=== PATIENT | male | born 1945 | race Caucasian/White ===

== ENCOUNTER 2016-09-09 14:26 | Emergency (ER) | payer BC, MEDICARE ==
--- NOTE | 2016-09-09 14:52 | UC ---
Cardiac HPI - HPI Summary HPI Summary: The patient comes in today for: 1. Chest pain: Onset: one hour ago. Palliative/provocative: Coming here and laying on the cot made it better. Quality: Pressure, also a pain. Region: Left chest and left arm pain. Severity: 8/10 Time: Constant. Associated symptoms: Nausea: Present. Dyspnea: None Palpitations: None. Diaphoresis: None. Previous disease: None. CAD risk factors: HTN: (-), DM: (-), CAD: (-), Smoker: (-), Fm Hx: (+)-- brother had coronary bypass, but not before age 55, cholesterol: (?). Previous cardiac studies: None; ASA: He states that he has been taking one 81 mg aspirin daily for the last "several days." * - History of Current Complaint Chief Complaint: UCChestPain Stated Complaint: TOOTH/CHEST PAIN Time Seen by Provider: 09/09/16 14:44 Hx Obtained From: Patient - Allergy/Home Medications Allergies/Adverse Reactions: Allergies Allergy/AdvReac Type Severity Reaction Status Date / Time Bee Venom Allergy Unknown See Comment Verified 09/09/16 14:39 Celecoxib [From Celebrex] Allergy Rash Verified 09/09/16 14:39 Home Medications: Home Medications Aspirin EC Low Dose* [Ecotrin EC Low Dose*] 1 tab 09/09/16 [History] PMH/Surg Hx/FS Hx/Imm Hx Previously Healthy: No - Dermatitis, dizziness. Endocrine History Of: Denies: Diabetes, Thyroid Disease, Hyperthyroidism, Hypothyroidism, Dyslipidemia Cardiovascular History Of: Denies: Cardiac Disorders, Hypertension, Pacemaker/ICD, Myocardial Infarction , Congestive Heart Failure, Atrial Fibrillation, Deep Vein Thrombosis, Bleeding Disorders Respiratory History Of: Denies: COPD, Asthma, Bronchitis, Pneumonia, Pulmonary Embolism GI/ History Of: Denies: Gastroesophageal Reflux, Ulcer, Gastrointestinal Bleed, Gall Bladder Disease, Kidney Stones, Diverticulitis, Renal Disease, Urosepsis Neurological History Of: Denies: TIA, CVA, Dementia, Seizures, Migraine Psychological History Of: Denies: Anxiety, Depression, Bipolar Disorder, Schizophrenia, Post Traumatic Stress Disorder Cancer History Of: Denies: Lung Cancer, Colorectal Cancer, Breast Cancer, Prostate Cancer, Cervical Cancer Other History Of: Anticoagulant Therapy - 81 mg aspirin daily for the "last couple of days." Negative For: HIV, Hepatitis B, Hepatitis C - Surgical History Surgical History: Yes Surgery Procedure, Year, and Place: Right Inguinal hernia 2013 (?). [place] [place]NEE REPA[place] WITH CAST. Cholecystectomy 06/14 - Family History Known Family History: Positive: Cardiac Disease, Hypertension, Diabetes - Social History Occupation: Employed Full-time Alcohol Use: Occasionally Substance Use Type: None Smoking Status (MU): Never Smoked Tobacco Have You Smoked in the Last Year: No Household Exposure Type: Cigarettes - Immunization History Most Recent Influenza Vaccination: 2014 Most Recent Tetanus Shot: 2009 Most Recent Pneumonia Vaccination: 2013 Review of Systems Constitutional: Negative Skin: Negative Eyes: Negative ENT: Dental Pain Respiratory: Negative Cardiovascular: Chest Pain Gastrointestinal: Abdominal Pain - He states that he has a history of abdominal pain, and is not "too concerned" about it., Diarrhea - He has six watery stools/ day for "years." Genitourinary: Negative All Other Systems Reviewed And Are Negative: Yes Physical Exam Triage Information Reviewed: Yes Appearance: Well-Appearing, No Pain Distress, Well-Nourished Vital Signs: Initial Vital Signs Temp 99.1 F 09/09/16 14:39 Pulse 72 09/09/16 14:39 Resp 18 09/09/16 14:39 BP 139/83 09/09/16 14:39 Pulse Ox 98 09/09/16 14:39 Vital Signs Reviewed: Yes Eyes: Positive: Conjunctiva Clear. Negative: Discharge ENT: Positive: Hearing grossly normal, Other: - Both ears: cerumen obscures seeing TM, but there is no canal erythema or edema.. Negative: Pharyngeal erythema, Nasal congestion, Nasal drainage Dental: Negative: Gross Decay/Caries @, Dental Fracture @ Neck: Positive: Supple, Nontender, No Lymphadenopathy. Negative: Nuchal Rigidity Respiratory: Positive: Lungs clear, No respiratory distress, No accessory muscle use. Negative: Crackles, Wheezing Cardiovascular: Positive: RRR, No Murmur Abdomen Description: Positive: No Organomegaly, Soft, McBurney's Point Tenderness. Negative: Nontender - He has tenderness to general palpation of his abdomen. However, he states that this pain is not new and he is not "concerned" about it. He has percussion tenderness, but no rebound tenderness. , Bruit, Distended, Guarding, Peritoneal Signs, Pulsatile Mass Musculoskeletal: Positive: Strength Intact, ROM Intact, No Edema, Other: - He has some point focal tenderness to the upper, left pectoralis major muscle. No masses. Pressure to this area does reproduce some of the sharp, sore chest pain , but does not reproduce the pressure sensation that he states he had. Neurological: Positive: Alert, Muscle Tone Normal Psychological: Positive: Age Appropriate Behavior, Consolable Skin: Negative: rashes, breakdown - Clinical Impression Provider Diagnoses: Chest pain (pressure and soreness). Abdominal pain ( patient reports is chronic along with chronic diarrhea). tooth pain. - Physician Notifications Discussed Patient Care With: Dr. Mango Trevizo Time Discussed With Above Provider: 15:14 Discharge - Discharge Plan Condition: Stable Disposition: AGAINST MEDICAL ADVICE Referrals: Angi Millan MD [Primary Care Provider] - Additional Instructions: Please go directly to the ER.
[2016-09-09] MEDS ORDERED: Aspirin Low Dose CHEW TAB* 81 MG PO ONE (15:07)
[2016-09-09] MEDS ORDERED: Aspirin Low Dose CHEW TAB* 81 MG ONE (15:10)
[2016-09-09 15:20] VITALS: BP 135/72
== END 2016-09-09 15:10 | disposition left against medical advice (07) ==
LOC: UCEAST 14:26
DX: R07.89 Other chest pain (principal); R10.84 Generalized abdominal pain; R19.7 Diarrhea, unspecified; K08.89 Other specified disorders of teeth and supporting structures; Z79.82 Long term (current) use of aspirin; Z88.8 Allergy status to other drugs, medicaments and biological substances; Z77.22 Contact with and (suspected) exposure to environmental tobacco smoke (acute) (chronic)
CPT/HCPCS: 93005; 99212; A9270-GY; G0463

== ENCOUNTER 2016-09-09 15:49 | Observation (INO) | payer BC, MEDICARE ==
[2016-09-09] MEDS ORDERED: NS 0.9% 1000 ML* 1,000 ML IV SCH (16:30)
[2016-09-09 16:50] LABS: Hematocrit 47 % (42-52); Hemoglobin 15.6 g/dl (14.0-18.0); Mean Corpuscular HGB Conc 33 g/dl (31-36); Mean Corpuscular Hemoglobin 30 pg (27-31); Mean Corpuscular Volume 89 fL (80-94); Mean Platelet Volume 8 um3 (7.4-10.4); Red Blood Count 5.25 10^6/ul (4.0-5.4); Red Cell Distribution Width 13 % (10.5-15)
--- NOTE | 2016-09-09 17:10 | RAD ---
INDICATION: Chest pain COMPARISON: Similar chest x-ray dated July 17, 2016 TECHNIQUE: Single AP portable view of the chest was obtained. FINDINGS: Image quality is compromised due to the relative inferiority of a portable chest x-ray. The heart and mediastinum exhibit normal size and contour. The lungs are grossly clear. There is no evidence of a large pleural effusion. Visualized bones are normal for the patient's age. IMPRESSION: No radiographic evidence for acute cardiopulmonary abnormality on this portable chest x-ray.
[2016-09-09 17:19] LABS: Albumin 4.3 g/dL (3.2-5.2); C Reactive Protein 9.67 mg/L (< 5.00); Calcium 9.4 mg/dL (8.6-10.3); EGFR African American 82.9 (>60); EGFR Non-African American 64.4 (>60); Globulin 3.2 g/dL (2-4); Magnesium 2.6 mg/dL (1.9-2.7); Potassium 3.7 mmol/L (3.5-5.0); Total Bilirubin 0.3 mg/dL (0.2-1.0); Total Protein 7.5 g/dL (6.4-8.9)
[2016-09-09 17:30] LABS: TSH (Thyroid Stimulating Horm) 2.66 mcIU/mL (0.34-5.60)
[2016-09-09] MEDS ORDERED: HYDROcodone/ACETAMIN 5-325 MG* 1 TAB PO ONE (18:05)
[2016-09-09] MEDS ORDERED: Penicillin VK TAB* 250 MG PO ONE (18:05)
--- NOTE | 2016-09-09 18:05 | ED ---
Luz Ortega Erika, scribed for Angus Jackson MD on 09/09/16 at 1626 . HPI Chest Pain - HPI Summary HPI Summary: Patient is a 71-year-old male presenting to the ED with a CC of chest pain starting at 14:30 today. Pt reports that he initially had upper left dental pain starting yesterday afternoon which worsened last night and today, so today he took a [place] around 13:30 today. 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 Pain was described as a pressure and rated an 8/10 at its worst. At first, pain did not radiate, but then it began to radiate to the left arm and LUQ. Pt was seen at [facility], and states pain worsened during the drive. Pain was partially alleviated by lying down. Pt was given 243 mg aspirin at [facility], and was not given NTG. Pt came from [facility] to the ED by private car. Pt denies associated symptoms of nausea, diaphoresis, SOB, and calf pain/swelling. He states the chest pain is no longer present - it lasted about 1.5 hours - but he does still note some dental pain. Pt takes meclizine daily for vertigo. Denies Hx HTN, hyperlipidemia, diabetes, KS, DVT, PE. Pt reports he had a chemical stress test 8 years ago. - History of Current Complaint Chief Complaint: EDChestPainROMI Time Seen by Provider: 09/09/16 16:04 Hx Obtained From: Patient Onset/Duration: Started Hours Ago, Atraumatic, Resolved Timing: Constant Initial Severity: Moderate Current Severity: None Chest Pain Location: Left Anterior Chest Pain Radiates: Yes Chest Pain Radiates To:: Arm - L, Other - LUQ Character: Pressure/Squeezing Aggravating Factor(s): Other: - Driving Alleviating Factor(s): Position - Lying down Associated Signs and Symptoms: Positive: Negative. Negative: Shortness of Breath, Diaphoresis, Nausea, Calf Pain/Swelling - Additional Pertinent History Primary Care Physician: [id number] - Allergy/Home Medications Allergies/Adverse Reactions: Allergies Allergy/AdvReac Type Severity Reaction Status Date / Time Bee Venom Allergy Unknown See Comment Verified 09/09/16 14:39 Celecoxib [From Celebrex] Allergy Rash Verified 09/09/16 14:39 Home Medications: Home Medications Meclizine TAB* [Antivert 12.5 TAB*] 25 mg PO QID PRN 09/09/16 [History Confirmed 09/09/16] PMH/Surg Hx/FS Hx/Imm Hx Endocrine/Hematology History: Reports: Hx Anticoagulant Therapy - 81 mg aspirin daily for the "last couple of days." Denies: Hx Diabetes, Hx Thyroid Disease Cardiovascular History: Denies: Hx Congestive Heart Failure, Hx Deep Vein Thrombosis, Hx Hypertension , Hx Myocardial Infarction, Hx Pacemaker/ICD Respiratory History: Reports: Hx Pleural Effusion - R side current, Hx Sleep Apnea Denies: Hx Asthma, Hx Chronic Obstructive Pulmonary Disease (COPD), Hx Lung Cancer, Hx Pneumonia, Hx Pulmonary Embolism GI History: Reports: Hx Hiatal Hernia, Other GI Disorders - chronic diarrhea Denies: Hx Gall Bladder Disease, Hx Gastrointestinal Bleed, Hx Ulcer, Hx Urosepsis History: Denies: Hx Dialysis, Hx Kidney Stones, Hx Renal Disease Musculoskeletal History: Reports: Other Musculoskeletal History - HX OF CHRONIC PAIN IN NECK AND BILATERAL SHOULDERS Sensory History: Reports: Hx Cataracts - 2012, Hx Hearing Aid - (LEFT) DOES NOT WEAR IT, Hx Hearing Problem Denies: Hx Contacts or Glasses Opthamlomology History: Reports: Hx Cataracts - 2012 Denies: Hx Contacts or Glasses Neurological History: Denies: Hx Dementia, Hx Migraine, Hx Seizures, Hx Transient Ischemic Attacks (TIA) Psychiatric History: Denies: Hx Anxiety, Hx Depression, Hx Panic Disorder, Hx Schizophrenia, Hx Bipolar Disorder - Surgical History Surgery Procedure, Year, and Place: Right [place]inal her[place] 2013 ([place] [facility] [place] WITH CAST. Cholecystectomy 06/14 Hx Anesthesia Reactions: No Infectious Disease History: No Infectious Disease History: Reports: Hx Shingles Denies: Hx Clostridium Difficile, Hx Hepatitis, Hx Human Immunodeficiency Virus (HIV), Hx of Known/Suspected MRSA, Hx Tuberculosis, Hx Known/Suspected VRE , Hx Known/Suspected VRSA, History Other Infectious Disease, Traveled Outside the [place] in Last 30 Days - Family History Known Family History: Positive: Cardiac Disease, Hypertension, Diabetes - Social History Alcohol Use: Occasionally Hx Substance Use: No Substance Use Type: Reports: None Hx Tobacco Use: No Smoking Status (MU): Never Smoked Tobacco Have You Smoked in the Last Year: No Review of Systems Negative: Skin Diaphoresis Positive: Dental Pain Positive: Chest Pain - radiating to LUQ and left arm Negative: Shortness Of Breath Negative: Nausea Negative: Edema All Other Systems Reviewed And Are Negative: Yes Physical Exam Triage Information Reviewed: Yes Vital Signs On Initial Exam: Initial Vitals Temp Pulse Resp BP Pulse Ox 98.7 F 137 20 133/72 90 09/09/16 15:51 09/09/16 15:51 09/09/16 15:51 09/09/16 15:51 09/09/16 15:51 Vital Signs Reviewed: Yes Appearance: Positive: Well-Appearing, No Pain Distress Skin: Positive: Warm, Skin Color Reflects Adequate Perfusion, Dry Head/Face: Positive: Normal Head/Face Inspection Eyes: Positive: EOMI, ANGI ENT: Positive: Normal ENT inspection Dental: Positive: Gross Decay/Caries @ - left molar, and multiple other carries and decay Neck: Positive: Supple, Nontender Respiratory/Lung Sounds: Positive: Clear to Auscultation, Breath Sounds Present Cardiovascular: Positive: Tachycardia - at 137 bpm on triage Abdomen Description: Positive: Nontender, Soft Bowel Sounds: Positive: Present Musculoskeletal: Positive: Normal, Strength/ROM Intact Neurological: Positive: Normal, Sensory/Motor Intact, Alert, Oriented to Person Place, Time Psychiatric: Positive: Affect/Mood Appropriate Diagnostics - Vital Signs Vital Signs Temp Pulse Resp BP Pulse Ox 09/09/16 15:51 98.7 F 137 20 133/72 90 - Laboratory Lab Results: Lab Results 09/09/16 09/09/16 09/09/16 Range/Units 14:15 14:15 14:15 WBC 12.0 H (3.5-10.8) 10^3/ul RBC 5.25 (4.0-5.4) 10^6/ul Hgb 15.6 (14.0-18.0) g/dl Hct 47 (42-52) % MCV 89 (80-94) fL MCH 30 (27-31) pg MCHC 33 (31-36) g/dl RDW 13 (10.5-15) % Plt Count 261 (150-450) 10^3/ul MPV 8 (7.4-10.4) um3 Neut % (Auto) 76.4 (38-83) % Lymph % (Auto) 13.4 L (25-47) % Ritchie % (Auto) 6.8 (1-9) % Eos % (Auto) 3.1 (0-6) % Baso % (Auto) 0.3 (0-2) % Absolute Neuts (auto) 9.2 H (1.5-7.7) 10^3/ul Absolute Lymphs (auto) 1.6 (1.0-4.8) 10^3/ul Absolute Monos (auto) 0.8 (0-0.8) 10^3/ul Absolute Eos (auto) 0.4 (0-0.6) 10^3/ul Absolute Basos (auto) 0 (0-0.2) 10^3/ul Absolute Nucleated RBC 0.02 10^3/ul Nucleated RBC % 0.1 INR (Anticoag Therapy) 0.89 (0.89-1.11) APTT 28.8 (26.0-36.3) seconds D-Dimer, Quantitative < 200 (Less Than 230) ng/mL Sodium 137 (133-145) mmol/L Potassium 3.7 (3.5-5.0) mmol/L Chloride 104 (101-111) mmol/L Carbon Dioxide 26 (22-32) mmol/L Anion Gap 7 (2-11) mmol/L BUN 19 (6-24) mg/dL Creatinine 1.12 (0.67-1.17) mg/dL Est GFR ( Amer) 82.9 (>60) Est GFR (Non-Af Amer) 64.4 (>60) BUN/Creatinine Ratio 17.0 (8-20) Glucose 90 (70-100) mg/dL Calcium 9.4 (8.6-10.3) mg/dL Magnesium 2.6 (1.9-2.7) mg/dL Total Bilirubin 0.30 (0.2-1.0) mg/dL AST 15 (13-39) U/L ALT 12 (7-52) U/L Alkaline Phosphatase 91 (34-104) U/L Total Creatine Kinase 51 (10-223) U/L CK-MB (CK-2) 2.7 (0.6-6.3) ng/mL Troponin I 0.00 (<0.04) ng/mL C-Reactive Protein 9.67 H (< 5.00) mg/L B-Natriuretic Peptide ( - 100) pg/mL Total Protein 7.5 (6.4-8.9) g/dL Albumin 4.3 (3.2-5.2) g/dL Globulin 3.2 (2-4) g/dL Albumin/Globulin Ratio 1.3 (1-3) Lipase 29 (11.0-82.0) U/L TSH 2.66 (0.34-5.60) mcIU/mL 09/09/16 Range/Units 14:15 WBC (3.5-10.8) 10^3/ul RBC (4.0-5.4) 10^6/ul Hgb (14.0-18.0) g/dl Hct (42-52) % MCV (80-94) fL MCH (27-31) pg MCHC (31-36) g/dl RDW (10.5-15) % Plt Count (150-450) 10^3/ul MPV (7.4-10.4) um3 Neut % (Auto) (38-83) % Lymph % (Auto) (25-47) % Ritchie % (Auto) (1-9) % Eos % (Auto) (0-6) % Baso % (Auto) (0-2) % Absolute Neuts (auto) (1.5-7.7) 10^3/ul Absolute Lymphs (auto) (1.0-4.8) 10^3/ul Absolute Monos (auto) (0-0.8) 10^3/ul Absolute Eos (auto) (0-0.6) 10^3/ul Absolute Basos (auto) (0-0.2) 10^3/ul Absolute Nucleated RBC 10^3/ul Nucleated RBC % INR (Anticoag Therapy) (0.89-1.11) APTT (26.0-36.3) seconds D-Dimer, Quantitative (Less Than 230) ng/mL Sodium (133-145) mmol/L Potassium (3.5-5.0) mmol/L Chloride (101-111) mmol/L Carbon Dioxide (22-32) mmol/L Anion Gap (2-11) mmol/L BUN (6-24) mg/dL Creatinine (0.67-1.17) mg/dL Est GFR ( Amer) (>60) Est GFR (Non-Af Amer) (>60) BUN/Creatinine Ratio (8-20) Glucose (70-100) mg/dL Calcium (8.6-10.3) mg/dL Magnesium (1.9-2.7) mg/dL Total Bilirubin (0.2-1.0) mg/dL AST (13-39) U/L ALT (7-52) U/L Alkaline Phosphatase (34-104) U/L Total Creatine Kinase (10-223) U/L CK-MB (CK-2) (0.6-6.3) ng/mL Troponin I (<0.04) ng/mL C-Reactive Protein (< 5.00) mg/L B-Natriuretic Peptide 16 ( - 100) pg/mL Total Protein (6.4-8.9) g/dL Albumin (3.2-5.2) g/dL Globulin (2-4) g/dL Albumin/Globulin Ratio (1-3) Lipase (11.0-82.0) U/L TSH (0.34-5.60) mcIU/mL Result Diagrams: 09/09/16 14:15 09/09/16 14:15 Lab Statement: Any lab studies that have been ordered have been reviewed, and results considered in the medical decision making process. - Radiology CXR Radiology Interpretation Completed By: Radiologist - IMPRESSION: No radiographic evidence for acute cardiopulmonary abnormality on this portable chest x-ray. - EKG 15:56 Cardiac Rate: NL - at 62 bpm EKG Rhythm: Sinus Rhythm Ectopy: None EKG Interpretation: Flat T in III Re-Evaluation - Re-Evaluation First Eval Re-Evaluation Time: 17:48 Comment: Discussed lab and imaging results and possible admission Chest Pain Course/Dx - Course Assessment/Plan: NO CHEST PAIN IN ED. ADMIT HOSPITALIST STABLE. - Diagnoses Provider Diagnoses: Chest pain, Tooth ache - Provider Notifications Discussed Care Of Patient With: Dr. Hernandez (hospitalist) at 17:51 - agrees to admit Discharge - Discharge Plan Condition: Stable Disposition: ADMITTED TO [facility] Referrals: Angi Millan MD [Primary Care Provider] - The documentation as recorded by the Luz sotomayor Erika accurately reflects the service I personally performed and the decisions made by , Angus Jackson MD.
[2016-09-09] MEDS ORDERED: Ondansetron INJ* 2 MG/ML VIAL IV PRN (18:29)
[2016-09-09] MEDS ORDERED: oxyCODONE TAB* 5 MG TAB PO PRN (18:35)
[2016-09-09 19:34] LABS: Urine Bilirubin Negative (Negative); Urine Glucose Negative (Negative); Urine Nitrite Negative (Negative)
--- NOTE | 2016-09-09 20:57 | HP ---
AMENDED REPORT NOW INCLUDES DATE OF ADMISSION ADMISSION HISTORY AND PHYSICAL: DATE OF ADMISSION: 09/09/16 PRIMARY CARE PROVIDER: Dr. Millan. HEALTHCARE PROXY: His . CODE STATUS: Full. CHIEF COMPLAINT: Chest pain. HISTORY OF PRESENT ILLNESS: This 71-year-old man, relatively benign past medical history, who has been in his recent usual state of health, although noticed that he had what was thought what he had was a recent dental infection starting yesterday because of pain in his mouth. He had hydrocodone with acetaminophen 5/325 mg that his had from a previous surgery and took it after which he developed chest pain that felt like a pressure that was left sided radiating to his left arm and flank, not associated with shortness of breath, diaphoresis, light headedness or vertigo. Laura that the pain got progressively worse over the next hour. Over that hour, he drove his to work and then brought himself to [facility]. He noted the pain was better when lying down; however, he was directed [place] [facility] [place] he drove. He has never experienced pain like this before, although has experienced right sided chest pain which he reports has been worked up without an etiology. He denies any recent fevers, chills, cough, or sore throat, although does endorse rhinorrhea starting yesterday. 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 He also lifts other heavy equipment such as furnaces around his house and puts them into the truck. Some of the boxes that he carries can weigh up to 130 pounds. He performs this activity without ever developing chest pain or similar chest discomfort like he experienced today. Denies orthopnea or PND and no new or old lower extremity edema. PAST MEDICAL HISTORY: Includes vertigo, osteoarthritis, and a history of right inguinal hernia and laparoscopic cholecystectomy. MEDICATIONS: Meclizine as needed for vertigo. ALLERGIES: To CELEBREX which caused a rash. FAMILY HISTORY: His brother had CAD and a CABG, otherwise unremarkable. SOCIAL HISTORY: No history of tobacco use. Estimates he drinks about 30 beers annually. 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 PHYSICAL EXAMINATION GENERAL: Sitting up in bed, interactive, pleasant, in no apparent distress. VITAL SIGNS: Blood pressure 128/62, heart rate 67, respiratory rate 14, T max in the emergency room 98.7, 99% on room air. HEENT: His oropharynx is clear. He has poor dentition. No evidence of active draining infection in his mouth, though he indicates left upper region as the source of pain. NECK: He has non-elevated JVD. No carotid bruits. LUNGS: Clear to auscultation bilaterally. HEART: He has regular rate and rhythm. No murmurs, rubs, or gallops. CHEST: His left chest wall is tender to palpation. ABDOMEN: Soft, nondistended. Positive bowel sounds. Tender in the epigastrium to deep palpation. EXTREMITIES: Warm and well perfused without clubbing, cyanosis, or edema. Less than 2-second cap refill. SKIN: Good skin turgor. NEURO: He is A and O x3. Cranial nerves II through XII are intact. LABORATORY DATA: Labs reviewed. Notable for BUN 19, creatinine 1.12, CK-MB 2.7 , troponin 0.00. CRP 9.6, BNP 16, TSH 2.66. D-dimer less than 200. White blood cell count is 12, 76% neutrophils, hemoglobin 15.6, platelets 261. Data reviewed. EKG: Normal sinus rhythm. Ventricular rate of 62, left axis, normal limit intervals. Left anterior fascicular block. No ST or T-wave changes. Isolated Q in aVF. Chest x-ray, impression: No radiographic evidence for acute cardiopulmonary abnormality. ASSESSMENT AND PLAN: This is a 71-year-old male, benign past medical history except for recent suspected dental infection, not corroborated on physical exam presenting with new onset, left sided chest pressure. 1. Chest pain. Risk factors include age and gender. Unknown cholesterol and diabetes status, although sugar on presentation was 90. We will admit to the hospital observation status, check 2 additional troponins, first one now. EKG at the time with next troponin. Add on hemoglobin A1c to ED labs and check fasting lipids in the morning. Received aspirin at [facility]. We will continue low dose in the morning. Statin based on lipids and troponins. NPO at midnight, planned for stress. 2. Suspected dental infection. Received penicillin in the emergency room. Repeat white blood cell count in the morning. Pain medications p.r.n. Assist in establishing dental care on discharge. 3. Vertigo. Meclizine p.r.n. 4. DVT prophylaxis, moderate risk, heparin subcu. 5. Code status is full. CC: Dr. Millan * [id number]/[facility] #: [id number] [facility]
[2016-09-09] MEDS: Heparin VIAL(*) 5000 UNITS/ML VIAL (FIVE THOUSAND) SUBCUT SCH (22:19)
[2016-09-10] MEDS: Acetaminophen TAB* 325 MG PO PRN ×3 (02:19→13:34)
[2016-09-10 05:22] LABS: Hematocrit 41 % (42-52); Hemoglobin 13.6 g/dl (14.0-18.0); Mean Corpuscular HGB Conc 34 g/dl (31-36); Mean Corpuscular Hemoglobin 30 pg (27-31); Mean Corpuscular Volume 89 fL (80-94); Mean Platelet Volume 8 um3 (7.4-10.4); Red Blood Count 4.58 10^6/ul (4.0-5.4); Red Cell Distribution Width 13 % (10.5-15); White Blood Count 10.5 10^3/ul (3.5-10.8)
[2016-09-10 05:44] LABS: BUN/Creatinine Ratio 14.4 (8-20); Calcium 8.5 mg/dL (8.6-10.3); EGFR Non-African American 60.7 (>60); HDL Cholesterol 28.4 mg/dL; Potassium 3.4 mmol/L (3.5-5.0)
[2016-09-10] MEDS: Heparin VIAL(*) 5000 UNITS/ML VIAL (FIVE THOUSAND) SUBCUT SCH (06:05)
[2016-09-10] MEDS ORDERED: Aspirin EC Low Dose* 81 MG TAB.EC PO SCH (09:00)
[2016-09-10 11:40] VITALS: BP 125/57
--- NOTE | 2016-09-11 04:12 | DS ---
DISCHARGE SUMMARY: DATE OF ADMISSION: 09/09/16 DATE OF DISCHARGE: 09/10/16 PRIMARY CARE PHYSICIAN: Angi Millan M.D. PRIMARY DISCHARGE: Chest pain. SECONDARY DIAGNOSES: 1. Dental infection. 2. Chronic kidney disease. 3. Vertigo. PROCEDURES PERFORMED DURING HOSPITAL STAY: Exercise EKG stress test. Impression: No evidence of stress-induced ischemia. PERTINENT LABORATORY DATA: 1. Troponin I 0.00 on 3 consecutive checks. 2. Total cholesterol 168, LDL 70, HDL 28, triglycerides 349, creatinine 1.18. HISTORY OF PRESENT ILLNESS AND HOSPITAL COURSE: This is a 71-year-old man with minimal past medical history presented to the hospital after developing left- sided chest pressure radiating down his left arm after taking hydrocodone at home for his mouth pain. Did not have associated signs or symptoms. However, given his poor contact with medical providers and character of the pain, he was admitted to the hospital and had 3 negative troponins. The following day, he underwent exercise EKG stress test which was negative, low risk for ischemia. He was discharged without complications during the hospital course. He had no additional chest pain during the course of the hospital stay nor during his stress test. He will follow up with Dr. Millan for additional dental care. A referral was made to a dentist on discharge, although unclear that he has dental insurance at this time. MEDICATIONS AT DISCHARGE: Include: 1. Meclizine 25 mg 4 times a day as needed for vertigo. 2. Acetaminophen 650 mg every 6 hours as needed for pain or fever. Reasons to return to the hospital including but not limited to, recurrent or worsening symptoms including shortness of breath or chest pain, lightheadedness , headache, loss of consciousness, near loss of consciousness, nausea, vomiting , fevers, chills, night sweats, inability to obtain or tolerate medications were discussed with the patient, and he acknowledged understanding. At followup please: 1. Evaluate for resolution of symptoms. 2. Appropriate referral to dental care if not accepted to that when he was referred to from the hospital. TIME SPENT: Greater than 45 minutes was spent discharging the patient, greater than half the time was spent [id number] with the patient. CC: Angi Millan MD * [id number]/[facility] #: [id number] [facility]ILITY[facility]uthie
== END 2016-09-10 14:15 | disposition home or self-care (01) ==
LOC: ED 15:49 → MEDTELE 20:25
PROVIDERS: ADMIT Hospitalist; ATTEND Internal Medicine
DX: R07.9 Chest pain, unspecified (principal); N18.9 Chronic kidney disease, unspecified; R42 Dizziness and giddiness; K04.7 Periapical abscess without sinus; Z79.899 Other long term (current) drug therapy; R94.31 Abnormal electrocardiogram [ECG] [EKG]; R00.1 Bradycardia, unspecified
CPT/HCPCS: 36415; 71010; 80048; 80053; 80061; 81003; 82550; 82553; 83036; 83690; 83735; 83880; 84443; 84484; 85025; 85379; 85610; 85730; 86140; 93005; 96360; 96361; 96372; 99212; 99283; A9270-GY; G0378; G0463; J1644

== ENCOUNTER 2016-10-11 14:43 | Emergency (ER) | payer BC, MEDICARE ==
[2016-10-11 15:00] VITALS: BP 127/59
--- NOTE | 2016-10-11 15:40 | ED ---
Upper Extremity Pain - HPI Summary HPI Summary: 71 M presents with laceration to right eye and right shoulder pain s/p slipping on some snow today. He denies any LOC or headache. His fall was a mechanical fall and he denies any any chest pain or SOB at time of fall. He had limited ROM of his right shoulder but says since arriving his ROM has increased. He is on blood thinners according to his chart which he denied being on. He denies any nausea or vomiting. He is right handed. He denies any injury anywhere else. His last tetanus was a week ago. <Gela Fox - Last Filed: 10/11/16 20:10> <Clif Wren - Last Filed: 10/11/16 21:00> - History of Current Complaint Chief Complaint: EDExtremityUpper Stated Complaint: FALL / FACIAL LACS Time Seen by Provider: 10/11/16 15:07 - Allergies/Home Medications Allergies/Adverse Reactions: Allergies Allergy/AdvReac Type Severity Reaction Status Date / Time Bee Venom Allergy Unknown See Comment Verified 10/02/16 11:03 Celecoxib [From Celebrex] Allergy Rash Verified 10/02/16 11:03 PMH/Surg Hx/FS Hx/Imm Hx Endocrine/Hematology History: Reports: Hx Anticoagulant Therapy - 81 mg aspirin daily for the "last couple of days." Denies: Hx Diabetes, Hx Thyroid Disease Cardiovascular History: Reports: Hx Angina Denies: Hx Congestive Heart Failure, Hx Deep Vein Thrombosis, Hx Hypertension , Hx Myocardial Infarction, Hx Pacemaker/ICD Respiratory History: Reports: Hx Pleural Effusion, Hx Pneumonia - "many times", Other Respiratory Problems/Disorders - pl eff Denies: Hx Asthma, Hx Chronic Obstructive Pulmonary Disease (COPD), Hx Lung Cancer, Hx Pulmonary Embolism, Hx Sleep Apnea - pt denies GI History: Reports: Hx Gall Bladder Disease - removed, Hx Hiatal Hernia, Other GI Disorders - chronic diarrhea Denies: Hx Gastrointestinal Bleed, Hx Ulcer, Hx Urosepsis History: Reports: Hx Kidney Stones Denies: Hx Dialysis, Hx Renal Disease Musculoskeletal History: Reports: Other Musculoskeletal History - HX OF PAIN IN R NECK, BILATERAL SHOULDERS, right upper chest Sensory History: Reports: Hx Cataracts - 2013, Hx Hearing Aid - (LEFT) DOES NOT WEAR IT, Hx Hearing Problem Denies: Hx Contacts or Glasses Opthamlomology History: Reports: Hx Cataracts - 2012 Denies: Hx Contacts or Glasses Neurological History: Reports: Other Neuro Impairments/Disorders - chronic vertigo Denies: Hx Dementia, Hx Migraine, Hx Seizures, Hx Transient Ischemic Attacks (TIA) Psychiatric History: Denies: Hx Anxiety, Hx Depression, Hx Panic Disorder, Hx Schizophrenia, Hx Bipolar Disorder - Surgical History Surgery Procedure, Year, and Place: Right Inguinal hernia 2013 (?). 2013- [facility]. 1949'S KNEE REPAIR WITH [facility]. Cholecystectomy 06/14 Hx Anesthesia Reactions: No - Immunization History Date of Tetanus Vaccine: Up to date Date of Influenza Vaccine: 2014 Infectious Disease History: No Infectious Disease History: Reports: Hx Shingles - hx Denies: Hx Clostridium Difficile, Hx Hepatitis, Hx Human Immunodeficiency Virus (HIV), Hx of Known/Suspected MRSA, Hx Tuberculosis, Hx Known/Suspected VRE , Hx Known/Suspected VRSA, History Other Infectious Disease, Traveled Outside the [place] in Last 30 Days - Family History Known Family History: Positive: Cardiac Disease, Hypertension, Diabetes - Social History Alcohol Use: Occasionally Alcohol Amount: 3 drinks per month Hx Substance Use: No Substance Use Type: Reports: None Hx Tobacco Use: No Smoking Status (MU): Never Smoked Tobacco Have You Smoked in the Last Year: No <Gela Fox - Last Filed: 10/11/16 20:10> Review of Systems Negative: Fever Negative: Chest Pain Negative: Shortness Of Breath Positive: Myalgia - right shoulder pain Positive: Other - laceration near right eye All Other Systems Reviewed And Are Negative: Yes <Gela Fox - Last Filed: 10/11/16 20:10> Physical Exam Triage Information Reviewed: Yes Vital Signs On Initial Exam: Initial Vitals Temp Pulse Resp BP Pulse Ox 98.2 F 67 16 127/59 98 10/11/16 14:53 10/11/16 14:53 10/11/16 14:53 10/11/16 14:53 10/11/16 14:53 Vital Signs Reviewed: Yes Appearance: Positive: Well-Appearing Skin: Positive: Warm, Dry, Other - 4 cm laceration near eyebrow of right eye and 2 cm laceration also near right eye Head/Face: Positive: Normal Head/Face Inspection, Other - no step off, raccoon eyes, gilbert sign, ENT: Positive: Pharynx normal, TMs normal, Other - deformity of nose present that patient states is chronic with no crepitus, no septal hematoma Neck: Positive: Supple, Nontender, No Lymphadenopathy Respiratory/Lung Sounds: Positive: Clear to Auscultation, Breath Sounds Present Cardiovascular: Positive: Normal, RRR Musculoskeletal: Positive: Strength/ROM Intact - of right elbow, Limited @ - right shoulder due to pain, Other - good pulses, capillary refill <2 secs, tenderness to right shoulder and humerus, nontender right elbow Neurological: Positive: Sensory/Motor Intact, Alert, Oriented to Person Place, Time, CN Intact II-III <Gela Fox - Last Filed: 10/11/16 20:10> Vital Signs On Initial Exam: Initial Vitals Temp Pulse Resp BP Pulse Ox 98.2 F 67 16 127/59 98 10/11/16 14:53 10/11/16 14:53 10/11/16 14:53 10/11/16 14:53 10/11/16 14:53 <Clif Wren - Last Filed: 10/11/16 21:00> Procedures - Laceration/Wound Repair 1 Location: head Description: Linear Anesthesia: Local, 1.0% Length, Depth and Shape: 4 cm lenght by 1/2 cm wide Betadine Prep?: No Irrigated w/ Saline (ccs): 100 Laceration/Wound Explored: no foreign body removed Suture Type: Prolene - 6-0 Number of Sutures: 4 Layer Closure?: No Sterile Dressing Applied?: No 2 Location: face Description: Linear Anesthesia: Local, 1.0% Length, Depth and Shape: 2 cm Betadine Prep?: No Irrigated w/ Saline (ccs): 100 Laceration/Wound Explored: clean Closure: Single Layer Suture Type: Prolene - 6-0 Number of Sutures: 2 Layer Closure?: No Sterile Dressing Applied?: No <Gela Fox - Last Filed: 10/11/16 20:10> Diagnostics - Vital Signs Vital Signs Temp Pulse Resp BP Pulse Ox 10/11/16 14:53 98.2 F 67 16 127/59 98 - Radiology shoulder Xray Interpretation: No Acute Changes - IMPRESSION: DEGENERATIVE CHANGES OF THE RIGHT SHOULDER DESCRIBED ABOVE WITHOUT RADIOGRAPHICALLY APPARENT ACUTE FRACTURE OR DISLOCATION. If the patient's symptoms persist, follow-up imaging is recommended. Radiology Interpretation Completed By: Radiologist - CT brain CT Interpretation: No Acute Changes CT Interpretation Completed By: Radiologist - . IMPRESSION: 1. No calvarial fracture or acute intracranial hemorrhage. 2. Soft tissue swelling and evidence of laceration overlying the right frontal bone without underlying maxillofacial fracture. 3. 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 <Gela Fox - Last Filed: 10/11/16 20:10> - Vital Signs Vital Signs Temp Pulse Resp BP Pulse Ox 10/11/16 14:53 98.2 F 67 16 127/59 98 <Clif Wren - Last Filed: 10/11/16 21:00> Course/Dx - Course Course Of Treatment: 71 M presents with laceration to right eyebrow and right shoulder pain. 3 cm laceration. normal neuro exam. will CT head due to being on blood thinners and age: CT: normal, xray shoulder normal, closed two laceration near right eye with 4 sutures one and 2 sutures the other, has full ROM of shoulder at d/c, told to return if develops vomiting or any signs of infection, patient understands and agrees with plan - Diagnoses Differential Diagnosis/HQI/PQRI: Positive: Contusion, Fracture (Closed), Laceration, Strain, Sprain <Gela Fox - Last Filed: 10/11/16 20:10> - Course Assessment/Plan: I was available for consultation. This patient was seen by mid level provider. The patient was not presented, seen, or examined by me. WR. <Clif Wren - Last Filed: 10/11/16 21:00> - Diagnoses Provider Diagnoses: Laceration of right eyebrow, Head injury, Right shoulder pain Discharge <Gela Fox - Last Filed: 10/11/16 20:10> <Clif Wren - Last Filed: 10/11/16 21:00> - Discharge Plan Condition: Stable Disposition: HOME Patient Education Materials: Care For Your Stitches (ED), Head Injury (ED), Shoulder Pain (ED) Referrals: Angi Millan MD [Primary Care Provider] - Additional Instructions: Take Tylenol or ibuprofen for pain Keep area clean and dry for [address] ice on area as needed Return to ED or primary in 5 days to have sutures removed Follow up with primary if no improvement in shoulder pain in 5 days Return to ED if develop signs of infection such as fever, spreading redness, or pus, develop vomiting, severe headache, change in behavior, or any new or worsening symptoms.
--- NOTE | 2016-10-11 16:25 | RAD ---
indication: Traumatic fall on the ice resulting in laceration to right forehead. COMPARISON: CT of the brain July 17, [address] scan of the brain and and maxillofacial bones was performed without intravenous contrast enhancement. Contiguous axial sections were obtained from the lower cervical spine through the cranial vertex. BRAIN: The ventricles, cisterns and sulci are within normal limits. There is stable encephalomalacia involving the right occipital lobe unchanged since the most recent CT examination. There is a hypodense focus in the posterior superior right parietal lobe measuring 1.2 cm, also unchanged from the previous CT of the brain. As where they marte-white differentiation is adequately maintained. There is no evidence for intracranial hemorrhage. No significant bony abnormality is present. The mastoid air cells are appropriately aerated. The visualized paranasal sinuses are clear. FACIAL BONES: Soft tissue swelling and a focus of subcutaneous gas is noted overlying the right frontal bone. Bones: There is no displaced fracture or dislocation. The orbital rim is intact. The zygomatic arch is intact. The pterygoid plates are intact Orbits: The globes are round. The optic nerves are symmetric. The extraocular musculature is normal. There is no post septal or intraconal inflammatory change. There is no retrobulbar hematoma. Paranasal Sinuses: There is mild mucosal thickening of the left maxillary sinus and the bilateral ethmoid air cells. . IMPRESSION: 1. No calvarial fracture or acute intracranial hemorrhage. 2. Soft tissue swelling and evidence of laceration overlying the right frontal bone without underlying maxillofacial fracture. 3. 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
--- NOTE | 2016-10-11 16:27 | RAD ---
INDICATION: Trauma. COMPARISON: None. TECHNIQUE: 3 views of the right shoulder were obtained. FINDINGS: The adequately corticated bones are in normal alignment. Mild degenerative changes include narrowing of the glenohumeral joint with sclerotic change of the bony glenoid labrum. There is narrowing and marginal osteophyte formation at the right acromioclavicular joint. No fracture, dislocation or focal bony abnormality is seen. IMPRESSION: DEGENERATIVE CHANGES OF THE RIGHT SHOULDER DESCRIBED ABOVE WITHOUT RADIOGRAPHICALLY APPARENT ACUTE FRACTURE OR DISLOCATION. If the patient's symptoms persist, follow-up imaging is recommended.
== END 2016-10-11 16:43 | disposition home or self-care (01) ==
LOC: ED 14:43
DX: S01.111A Laceration without foreign body of right eyelid and periocular area, initial encounter (principal); M25.511 Pain in right shoulder; S09.90XA Unspecified injury of head, initial encounter; W00.0XXA Fall on same level due to ice and snow, initial encounter; Y92.9 Unspecified place or not applicable; S01.81XA Laceration without foreign body of other part of head, initial encounter; Z79.82 Long term (current) use of aspirin
CPT/HCPCS: 12014; 70450; 70486; 99282

== ENCOUNTER 2016-10-20 12:43 | Emergency (ER) | payer BC, MEDICARE ==
[2016-10-20 12:55] VITALS: BP 129/65
--- NOTE | 2016-10-20 13:25 | UC ---
HPI Wound/Suture Re-check - HPI Summary HPI Summary: OVER ONE WEEK AGO SLIPPED ON ICE, FELL FORWARD AND CUT RIGHT EYEBROW. WENT TO EMERGENCY DEPT, HAD FIVE SUTURES TO RIGHT EYEBROW. NO COMPLICATIONS. - History Of Current Complaint Chief Complaint: UCSkin Stated Complaint: SUTURE REMOVAL Time Seen by Provider: 10/20/16 12:50 Hx Obtained From: Patient Onset/Duration: Sudden Onset, Lasting Weeks, Still Present Severity: Mild - Allergies/Home Medications Allergies/Adverse Reactions: Allergies Allergy/AdvReac Type Severity Reaction Status Date / Time Bee Venom Allergy Unknown See Comment Verified 10/02/16 11:03 Celecoxib [From Celebrex] Allergy Rash Verified 10/02/16 11:03 PMH/Surg Hx/FS Hx/Imm Hx Previously Healthy: Yes Endocrine History Of: Denies: Diabetes, Thyroid Disease, Hyperthyroidism, Hypothyroidism, Dyslipidemia Cardiovascular History Of: Denies: Cardiac Disorders, Hypertension, Pacemaker/ICD, Myocardial Infarction , Congestive Heart Failure, Atrial Fibrillation, Deep Vein Thrombosis, Bleeding Disorders Respiratory History Of: Reports: Pneumonia - "many times" Denies: COPD, Asthma, Bronchitis, Pulmonary Embolism GI/ History Of: Reports: Gall Bladder Disease - removed, Kidney Stones Denies: Gastroesophageal Reflux, Ulcer, Gastrointestinal Bleed, Diverticulitis, Renal Disease, Urosepsis Neurological History Of: Denies: TIA, CVA, Dementia, Seizures, Migraine Psychological History Of: Denies: Anxiety, Depression, Bipolar Disorder, Schizophrenia, Post Traumatic Stress Disorder Cancer History Of: Denies: Lung Cancer, Colorectal Cancer, Breast Cancer, Prostate Cancer, Cervical Cancer Other History Of: Anticoagulant Therapy - 81 mg aspirin daily for the "last couple of days." Negative For: HIV, Hepatitis B, Hepatitis C - Surgical History Surgical History: Yes Surgery Procedure, Year, and Place: Right Inguinal hernia 2013 (?). 2013- [facility] [place]. 1949'[place] KNEE REPAIR WITH [facility]. Cholecystectomy 06/14 - Family History Known Family History: Positive: Cardiac Disease, Hypertension, Diabetes - Social History Occupation: Employed Full-time Lives: With Family Alcohol Use: Occasionally Alcohol Amount: 3 drinks per month Substance Use Type: None Smoking Status (MU): Never Smoked Tobacco Have You Smoked in the Last Year: No Household Exposure Type: Cigarettes - Immunization History Most Recent Influenza Vaccination: 2014 Most Recent Tetanus Shot: 2009 Most Recent Pneumonia Vaccination: 2013 Review of Systems Constitutional: Negative Skin: Other - LACERATION RIGHT EYEBROW Eyes: Negative ENT: Negative Respiratory: Negative Cardiovascular: Negative Gastrointestinal: Negative Genitourinary: Negative Motor: Negative Neurovascular: Negative Musculoskeletal: Negative Neurological: Negative Psychological: Negative All Other Systems Reviewed And Are Negative: Yes Physical Exam Triage Information Reviewed: Yes Appearance: Well-Appearing, No Pain Distress, Well-Nourished Vital Signs: Initial Vital Signs Temp 98.8 F 10/20/16 12:51 Pulse 67 10/20/16 12:51 Resp 16 10/20/16 12:51 BP 129/65 10/20/16 12:51 Pulse Ox 99 10/20/16 12:51 Vital Signs Reviewed: Yes Eye Exam: Normal Eyes: Positive: Conjunctiva Clear ENT Exam: Normal ENT: Positive: Normal ENT inspection, Hearing grossly normal, Pharynx normal, TMs normal Dental Exam: Normal Neck exam: Normal Neck: Positive: Supple, Nontender, No Lymphadenopathy Respiratory Exam: Normal Respiratory: Positive: Chest non-tender, Lungs clear, Normal breath sounds, No respiratory distress, No accessory muscle use Cardiovascular Exam: Normal Cardiovascular: Positive: RRR, No Murmur, Pulses Normal Abdominal Exam: Normal Musculoskeletal Exam: Normal Musculoskeletal: Positive: Strength Intact, ROM Intact Neurological Exam: Normal Psychological Exam: Normal Psychological: Positive: Normal Response To Family Skin: Positive: Other - TWO LACERATIONS WELL APPROXIMATED WITH OVERGROWN SCAR TISSUE TO RIGHT EYEBROW. ON CONTAINING #3 SUTURES, ONE CONTAINING #2SUTURES OF WHAT APPEARS TO BE 6-0 PROLENE Course/Dx - Differential Dx - Laceration/Wound Differential Diagnoses: Healing Wound, Suture Removal Provider Diagnoses: SUTURE REMOVAL OF TWO LACERATIONS TO RIGHT EYEBROW Discharge - Discharge Plan Condition: Stable Disposition: HOME Patient Education Materials: Stitches Removal (ED) Referrals: Angi Millan MD [Primary Care Provider] -
== END 2016-10-20 13:24 | disposition home or self-care (01) ==
LOC: UCEAST 12:43
DX: Z48.02 Encounter for removal of sutures (principal); Z79.82 Long term (current) use of aspirin; Z77.22 Contact with and (suspected) exposure to environmental tobacco smoke (acute) (chronic)
CPT/HCPCS: 99212; G0463

== ENCOUNTER 2016-12-09 00:36 | Emergency (ER) | payer BC, MEDICARE ==
[2016-12-09] MEDS ORDERED: predniSONE TAB* 20 MG PO ONE (03:42)
[2016-12-09] MEDS ORDERED: Albuterol/Ipratropium NEB.SOL* Albuterol 2.5 MG/Ipratropium 0.5 MG 3 ML INH ONE (03:42)
[2016-12-09] MEDS ORDERED: traMADol TAB* 50 MG PO ONE (03:43)
[2016-12-09 06:08] VITALS: BP 120/79
--- NOTE | 2016-12-10 21:25 | ED ---
Az Ortega Billy, scribed for Shubham Evans MD on 12/09/16 at 0342 . Respiratory - HPI Summary HPI Summary: Patient is a 71 year-old male coming to [facility] for evaluation of a month of coughing. Cough is nonproductive. Symptoms have worsened in the last 3 days. He has chest pain related to cough. He has a history of pneumonia. - History of Current Complaint Chief Complaint: EDChestWallPain Stated Complaint: CHEST PAIN/BACK PAIN/NECK PAIN Time Seen by Provider: 12/09/16 03:36 Hx Obtained From: Patient Onset/Duration: Gradual Onset, Lasting Weeks, Still Present, Worse Since - last 3 days Timing: Constant Initial Severity: Moderate Current Severity: Moderate Pain Intensity: 10 Character: Cough (Nonproductive) Sputum Amount: None Aggravating Factor(s): Nothing Alleviating Factor(s): Nothing Associated Signs and Symptoms: Chest Pain with Cough - Allergy/Home Medications Allergies/Adverse Reactions: Allergies Allergy/AdvReac Type Severity Reaction Status Date / Time Bee Venom Allergy Unknown See Comment Verified 10/02/16 11:03 Celecoxib [From Celebrex] Allergy Rash Verified 10/02/16 11:03 PMH/Surg Hx/FS Hx/Imm Hx Endocrine/Hematology History: Reports: Hx Anticoagulant Therapy - 81 mg aspirin daily for the "last couple of days." Denies: Hx Diabetes, Hx Thyroid Disease Cardiovascular History: Reports: Hx Angina Denies: Hx Congestive Heart Failure, Hx Deep Vein Thrombosis, Hx Hypertension , Hx Myocardial Infarction, Hx Pacemaker/ICD Respiratory History: Reports: Hx Pleural Effusion, Hx Pneumonia - "many times", Other Respiratory Problems/Disorders - pl eff Denies: Hx Asthma, Hx Chronic Obstructive Pulmonary Disease (COPD), Hx Lung Cancer, Hx Pulmonary Embolism, Hx Sleep Apnea - pt denies GI History: Reports: Hx Gall Bladder Disease - removed, Hx Hiatal Hernia, Other GI Disorders - chronic diarrhea Denies: Hx Gastrointestinal Bleed, Hx Ulcer, Hx Urosepsis History: Reports: Hx Kidney Stones Denies: Hx Dialysis, Hx Renal Disease Musculoskeletal History: Reports: Other Musculoskeletal History - HX OF PAIN IN R NECK, BILATERAL SHOULDERS, right upper chest Sensory History: Reports: Hx Cataracts - 2013, Hx Hearing Aid - (LEFT) DOES NOT WEAR IT, Hx Hearing Problem Denies: Hx Contacts or Glasses Opthamlomology History: Reports: Hx Cataracts - 2012 Denies: Hx Contacts or Glasses Neurological History: Reports: Other Neuro Impairments/Disorders - chronic vertigo Denies: Hx Dementia, Hx Migraine, Hx Seizures, Hx Transient Ischemic Attacks (TIA) Psychiatric History: Denies: Hx Anxiety, Hx Depression, Hx Panic Disorder, Hx Schizophrenia, Hx Bipolar Disorder - Surgical History Surgery Procedure, Year, and Place: Right Inguinal hernia 2013 (?). 2012- [facility]. 1949'S KNEE REPAIR WITH [facility]. Cholecystectomy 06/14 Hx Anesthesia Reactions: No - Immunization History Date of Tetanus Vaccine: Up to date Date of Influenza Vaccine: 2014 Infectious Disease History: No Infectious Disease History: Reports: Hx Shingles - hx Denies: Hx Clostridium Difficile, Hx Hepatitis, Hx Human Immunodeficiency Virus (HIV), Hx of Known/Suspected MRSA, Hx Tuberculosis, Hx Known/Suspected VRE , Hx Known/Suspected VRSA, History Other Infectious Disease, Traveled Outside the [place] in Last 30 Days - Family History Known Family History: Positive: Cardiac Disease, Hypertension, Diabetes - Social History Alcohol Use: Occasionally Alcohol Amount: 3 drinks per month Hx Substance Use: No Substance Use Type: Reports: None Hx Tobacco Use: No Smoking Status (MU): Never Smoked Tobacco Have You Smoked in the Last Year: No Review of Systems Negative: Fever, Chills Negative: Erythema Negative: Sore Throat Positive: Chest Pain Positive: Cough. Negative: Shortness Of Breath Negative: Abdominal Pain, Vomiting Negative: Myalgia, Edema Negative: Rash All Other Systems Reviewed And Are Negative: Yes Physical Exam - Summary Physical Exam Summary: Constitutional: Well-developed, Well-nourished, Alert. (-) Distressed Skin: Warm, Dry HENT: Normocephalic; Atraumatic Eyes: Conjunctiva normal Neck: Musculoskeletal ROM normal neck. (-) JVD, (-) Stridor, (-) Tracheal deviation Cardio: Rhythm regular, rate normal, Heart sounds normal; Intact distal pulses; The pedal pulses are 2+ and symmetric. Radial pulses are 2+ and symmetric. (-) Murmur Pulmonary/Chest wall: Effort normal. (-) Respiratory distress, (-) Wheezes, (-) Rales Abd: Soft, (-) Tenderness, (-) Distension, (-) Guarding, (-) Rebound Musculoskeletal: (-) Edema Lymph: (-) Cervical adenopathy Neuro: Alert, Oriented x3 Psych: Mood and affect Normal Triage Information Reviewed: Yes Vital Signs On Initial Exam: Initial Vitals Temp Pulse Resp BP Pulse Ox 99 F 84 20 122/77 100 12/09/16 00:43 12/09/16 00:43 12/09/16 00:43 12/09/16 00:43 12/09/16 00:43 Vital Signs Reviewed: Yes - Pam Coma Scale Coma Scale Total: 15 Diagnostics - Vital Signs Vital Signs Temp Pulse Resp BP Pulse Ox 12/09/16 02:47 18 12/09/16 01:54 99.4 F 89 16 126/76 98 12/09/16 00:43 99 F 84 20 122/77 100 - Laboratory Lab Statement: Any lab studies that have been ordered have been reviewed, and results considered in the medical decision making process. Re-Evaluation - Re-Evaluation First Eval Re-Evaluation Time: 05:18 Change: Improved Disposition - Course Assessment/Plan: Patient is a 71 y/o male coming to the ED with complaint of cough. In the ED course, the pt was given duoneb, prednisone, and tramadol for his symptoms. Patient will be discharged home with Rx for prednisone and tramadol. He will follow up with PCP. - Diagnoses Provider Diagnoses: Bronchitis, Chest wall muscle strain Discharge - Discharge Plan Condition: Stable Disposition: HOME Prescriptions: predniSONE TAB* [Deltasone TAB*] 40 mg PO DAILY #4 traMADol TAB* [Ultram*] 25 mg PO Q6HR PRN #12 tab MDD 4 PRN Reason: Pain Scale 1-5 Patient Education Materials: Acute Bronchitis (ED), Chest Wall Pain (ED) Referrals: Angi Millan MD [Primary Care Provider] - The documentation as recorded by the Az sotomayor Billy accurately reflects the service I personally performed and the decisions made by , Shubham Evans MD.
== END 2016-12-09 06:04 | disposition home or self-care (01) ==
LOC: ED 00:36
DX: J40 Bronchitis, not specified as acute or chronic (principal); S29.011A Strain of muscle and tendon of front wall of thorax, initial encounter; X58.XXXA Exposure to other specified factors, initial encounter; Y92.9 Unspecified place or not applicable; Z79.82 Long term (current) use of aspirin
CPT/HCPCS: 94640; 94760; 99282; A9270-GY; J7512

== ENCOUNTER 2017-02-07 23:16 | Emergency (ER) | payer BC, MEDICARE ==
[2017-02-08] MEDS ORDERED: Pantoprazole IV* 40 MG IV ONE (00:13)
[2017-02-08] MEDS ORDERED: Ondansetron INJ* 2 MG/ML VIAL IV ONE (00:13)
[2017-02-08] MEDS ORDERED: NS 0.9% 1000 ML* 2,000 ML IV ONE (00:13)
[2017-02-08] MEDS ORDERED: Morphine INJ* 4 MG/ML 1 ML SYRINGE IV ONE (00:13)
[2017-02-08 00:35] LABS: Hematocrit 44 % (42-52); Hemoglobin 14.6 g/dl (14.0-18.0); Mean Corpuscular HGB Conc 33 g/dl (31-36); Mean Corpuscular Hemoglobin 29 pg (27-31); Mean Corpuscular Volume 88 fL (80-94); Mean Platelet Volume 9 um3 (7.4-10.4); Red Blood Count 5.02 10^6/ul (4.0-5.4); Red Cell Distribution Width 14 % (10.5-15); White Blood Count 16.1 10^3/ul (3.5-10.8)
[2017-02-08 00:52] LABS: Albumin 4.4 g/dL (3.2-5.2); BUN/Creatinine Ratio 11.4 (8-20); C Reactive Protein 1.94 mg/L (< 5.00); Calcium 9.2 mg/dL (8.6-10.3); EGFR African American 81.2 (>60); EGFR Non-African American 63.1 (>60); Globulin 3.1 g/dL (2-4); Potassium 3.3 mmol/L (3.5-5.0); Total Bilirubin 0.4 mg/dL (0.2-1.0); Total Protein 7.5 g/dL (6.4-8.9)
[2017-02-08 04:00] VITALS: BP 110/49
--- NOTE | 2017-02-08 04:29 | ED ---
Michi Ortega Rebecca, scribed for Estrada Barth MD on 02/08/17 at 0014 . Abdominal Pain/Male - HPI Summary HPI Summary: Pt is a 71 y/o M who presents to ED c/o abdominal pain. Pain began suddenly at 2000 immediately after eating and has been constant since onset. Pain is in the epigastric and umbilical regions without radiation and is currently severe, ranked 10/10. Cannot characterize pain. Sx aggravated and alleviated by nothing. Additionally c/o N/V/D. Reports diarrhea 10x and vomiting 1x. States he chronically experiences diarrhea, but tonight it is worse. Denies blood in stool and fever. Denies eating any raw seafood tonight. Is not on a blood thinner. PSHx cholecystectomy. - History of Current Complaint Chief Complaint: EDNauseaVomitDiarrh Stated Complaint: ABD PAIN Time Seen by Provider: 02/07/17 23:51 Hx Obtained From: Patient Onset/Duration: Sudden Onset, Still Present Timing: Constant Severity Initially: Severe Severity Currently: Severe Pain Intensity: 10 Pain Scale Used: 0-10 Numeric Location: Epigastric, Umbilical Radiates: No Character: Other: - Unable to characterize Aggravating Factor(s): Nothing Alleviating Factor(s): Nothing Associated Signs And Symptoms: Positive: Nausea, Vomiting - 1x, Diarrhea - 10x. Negative: Fever, Blood in Stool - Allergies/Home Medications Allergies/Adverse Reactions: Allergies Allergy/AdvReac Type Severity Reaction Status Date / Time Bee Venom Allergy Unknown See Comment Verified 02/07/17 23:25 Celecoxib [From Celebrex] Allergy Rash Verified 02/07/17 23:25 PMH/Surg Hx/FS Hx/Imm Hx Endocrine/Hematology History: Reports: Hx Anticoagulant Therapy - 81 mg aspirin daily for the "last couple of days." Denies: Hx Diabetes, Hx Thyroid Disease Cardiovascular History: Reports: Hx Angina Denies: Hx Congestive Heart Failure, Hx Deep Vein Thrombosis, Hx Hypertension , Hx Myocardial Infarction, Hx Pacemaker/ICD Respiratory History: Reports: Hx Pleural Effusion, Hx Pneumonia - "many times", Other Respiratory Problems/Disorders - pl eff Denies: Hx Asthma, Hx Chronic Obstructive Pulmonary Disease (COPD), Hx Lung Cancer, Hx Pulmonary Embolism, Hx Sleep Apnea - pt denies GI History: Reports: Hx Gall Bladder Disease - removed, Hx Hiatal Hernia, Other GI Disorders - chronic diarrhea Denies: Hx Gastrointestinal Bleed, Hx Ulcer, Hx Urosepsis History: Reports: Hx Kidney Stones Denies: Hx Dialysis, Hx Renal Disease Musculoskeletal History: Reports: Other Musculoskeletal History - HX OF PAIN IN R NECK, BILATERAL SHOULDERS, right upper chest Sensory History: Reports: Hx Cataracts - 2012, Hx Hearing Aid - (LEFT) DOES NOT WEAR IT, Hx Hearing Problem Denies: Hx Contacts or Glasses Opthamlomology History: Reports: Hx Cataracts - 2012 Denies: Hx Contacts or Glasses Neurological History: Reports: Other Neuro Impairments/Disorders - chronic vertigo Denies: Hx Dementia, Hx Migraine, Hx Seizures, Hx Transient Ischemic Attacks (TIA) Psychiatric History: Denies: Hx Anxiety, Hx Depression, Hx Panic Disorder, Hx Schizophrenia, Hx Bipolar Disorder - Surgical History Surgery Procedure, Year, and Place: Right Inguinal hernia 2013 (?). 2012- [facility] [place]. KNEE REPAIR WITH CAST. Cholecystectomy 06/14 Hx Anesthesia Reactions: No - Immunization History Date of Tetanus Vaccine: Up to date Date of Influenza Vaccine: 2014 Infectious Disease History: No Infectious Disease History: Reports: Hx Shingles - hx Denies: Hx Clostridium Difficile, Hx Hepatitis, Hx Human Immunodeficiency Virus (HIV), Hx of Known/Suspected MRSA, Hx Tuberculosis, Hx Known/Suspected VRE , Hx Known/Suspected VRSA, History Other Infectious Disease, Traveled Outside the [place] in Last 30 Days - Family History Known Family History: Positive: Cardiac Disease, Hypertension, Diabetes - Social History Alcohol Use: Occasionally Alcohol Amount: 3 drinks per month Hx Substance Use: No Substance Use Type: Reports: None Hx Tobacco Use: No Smoking Status (MU): Never Smoked Tobacco Have You Smoked in the Last Year: No Review of Systems Negative: Fever Positive: Abdominal Pain, Vomiting - 1x, Diarrhea - 10x, Nausea, Other - Denies blood in stool All Other Systems Reviewed And Are Negative: Yes Physical Exam - Summary Physical Exam Summary: The patient is well-nourished and in mild distress. The skin is warm and dry and skin color reflects adequate perfusion. GOod skin turgor. HEENT: The head is normocephalic and atraumatic. The pupils are equal and reactive. The conjunctivae are clear and without drainage. Nares are patent and without drainage. Mouth reveals moist mucous membranes and the throat is without erythema and exudate. The external ears are intact. The ear canals are patent and without drainage. The tympanic membranes are intact. Neck is supple with full range of motion and non-tender. There are no carotid bruits. There is no neck vein distension. Respiratory: Chest is non-tender. Lungs are clear to auscultation and breath sounds are symmetrical and equal. Cardiovascular: Hear is regular rate and rhythm. There is no murmur or rub auscultated. There is no peripheral edema and pulses are symmetrical and equal. Abdomen: The abdomen is soft. Epigastric pain that is reproducible. No RLQ, LLQ , RUQ or RLQ pain. NO guarding and no rebound. There are normal bowel sounds heard in all four quadrants and there is no organomegaly palpated. Musculoskeletal: There is no back pain noted. Extremities are non-tender with full range of motion. There is good capillary refill. There is no peripheral edema or calf tenderness elicited. Neurological: Patient is alert and oriented to person, place and time. The patient has symmetrical motor strength in all four extremities. Psychiatric: The patient has an appropriate affect and does not exhibit any anxiety or depression. Triage Information Reviewed: Yes Vital Signs On Initial Exam: Initial Vitals Temp Pulse Resp BP Pulse Ox 98.0 F 61 16 163/72 98 02/07/17 23:20 02/07/17 23:20 02/07/17 23:20 02/07/17 23:20 02/07/17 23:20 Vital Signs Reviewed: Yes - Ellis Coma Scale Coma Scale Total: 15 Diagnostics - Vital Signs Vital Signs Temp Pulse Resp BP Pulse Ox 02/07/17 23:23 98.4 F 61 18 163/72 98 02/07/17 23:20 98.0 F 61 16 163/72 98 - Laboratory Lab Results: Lab Results 02/08/17 02/08/17 02/08/17 Range/Units 00:20 00:20 00:20 WBC 16.1 H (3.5-10.8) 10^3/ul RBC 5.02 (4.0-5.4) 10^6/ul Hgb 14.6 (14.0-18.0) g/dl Hct 44 (42-52) % MCV 88 (80-94) fL MCH 29 (27-31) pg MCHC 33 (31-36) g/dl RDW 14 (10.5-15) % Plt Count 216 (150-450) 10^3/ul MPV 9 (7.4-10.4) um3 Neut % (Auto) 87.9 H (38-83) % Lymph % (Auto) 5.7 L (25-47) % Ramsey % (Auto) 4.4 (1-9) % Eos % (Auto) 1.7 (0-6) % Baso % (Auto) 0.3 (0-2) % Absolute Neuts (auto) 14.2 H (1.5-7.7) 10^3/ul Absolute Lymphs (auto) 0.9 L (1.0-4.8) 10^3/ul Absolute Monos (auto) 0.7 (0-0.8) 10^3/ul Absolute Eos (auto) 0.3 (0-0.6) 10^3/ul Absolute Basos (auto) 0 (0-0.2) 10^3/ul Absolute Nucleated RBC 0 10^3/ul Nucleated RBC % 0 Sodium 137 (133-145) mmol/L Potassium 3.3 L (3.5-5.0) mmol/L Chloride 105 (101-111) mmol/L Carbon Dioxide 24 (22-32) mmol/L Anion Gap 8 (2-11) mmol/L BUN 13 (6-24) mg/dL Creatinine 1.14 (0.67-1.17) mg/dL Est GFR ( Amer) 81.2 (>60) Est GFR (Non-Af Amer) 63.1 (>60) BUN/Creatinine Ratio 11.4 (8-20) Glucose 115 H (70-100) mg/dL Lactic Acid 1.1 (0.5-2.0) mmol/L Calcium 9.2 (8.6-10.3) mg/dL Total Bilirubin 0.40 (0.2-1.0) mg/dL AST 20 (13-39) U/L ALT 12 (7-52) U/L Alkaline Phosphatase 68 (34-104) U/L C-Reactive Protein 1.94 (< 5.00) mg/L Total Protein 7.5 (6.4-8.9) g/dL Albumin 4.4 (3.2-5.2) g/dL Globulin 3.1 (2-4) g/dL Albumin/Globulin Ratio 1.4 (1-3) Lipase 39 (11.0-82.0) U/L Result Diagrams: 02/08/17 00:20 02/08/17 00:20 Lab Statement: Any lab studies that have been ordered have been reviewed, and results considered in the medical decision making process. - Radiology Abd XR Xray Interpretation: No Acute Changes - No signs of obstruction, no free air, stool in the right colon and psoas marginas are clean. Radiology Interpretation Completed By: ED Physician - EKG 0013 Cardiac Rate: Bradycardia - 51 bpm EKG Rhythm: Sinus Bradycardia EKG Interpretation: Left axis deviation, no ST elevation Re-Evaluation - Re-Evaluation First Eval Re-Evaluation Time: 03:56 Change: Improved Comment: Reassessed and pt is feeling better, though he continues to have diarrhea. Discussed XR and lab findings with pt. Answered any questions. Abdominal Pain Fem Course/Dx - Course Assessment/Plan: Pt is a 70 y/o M who presents to ED c/o severe epigastric and umbilical pain that began at 2000 immediately after eating. Additionally c/o N/V /D. Repots he chronically experiences diarrhea, though tonight is worse. Denies fever and blood in stool. EKG reveals sinus bradycardia. Abd XR reveals no acute findings. EKG reveals sinus bradycardia and no STEMI. Pt received Morphine , Zofran, Protonix and Ns in the course of the ED. Pt will be D/C to home with Dx of food poisoning and abdominal pain. - Diagnoses Differential Diagnosis/HQI/PQRI: Pancreatitis, Peptic Ulcer Disease, Other - gastritis, infectious diarrhea, food poisoning Provider Diagnoses: Food poisoning, Abdominal pain Discharge - Discharge Plan Condition: Stable Disposition: HOME Patient Education Materials: Food Poisoning (ED), Abdominal Pain (ED) Referrals: Angi Milaln MD [Primary Care Provider] - 3 Days The documentation as recorded by the Michi sotomayor Rebecca accurately reflects the service I personally performed and the decisions made by me, Estrada Barth MD.
--- NOTE | 2017-02-08 08:43 | RAD ---
Indication: Abdominal pain, diarrhea, ileus. Chronic diarrhea. History of nephrolithiasis. Post cholecystectomy. Comparison: June 29, 2015 CT. Technique: Supine and upright views of the abdomen. Report: Clear lung bases. No radiographic evidence for free air. Unremarkable bowel gas pattern. Small volume of stool in the RIGHT colon. Gallbladder fossa surgical clips. Negative for suspicious calcifications. Unremarkable soft tissue contours. IMPRESSION: No abdominal pelvic pathologic process evident.
== END 2017-02-08 04:08 | disposition home or self-care (01) ==
LOC: ED 23:16
DX: T61.91XA Toxic effect of unspecified seafood, accidental (unintentional), initial encounter (principal); R10.13 Epigastric pain; R10.33 Periumbilical pain; R11.2 Nausea with vomiting, unspecified; R19.7 Diarrhea, unspecified; R00.1 Bradycardia, unspecified; Y92.9 Unspecified place or not applicable; I20.9 Angina pectoris, unspecified; Z79.82 Long term (current) use of aspirin; Z87.442 Personal history of urinary calculi; Z90.49 Acquired absence of other specified parts of digestive tract; Z98.42 Cataract extraction status, left eye; Z98.41 Cataract extraction status, right eye; Z88.8 Allergy status to other drugs, medicaments and biological substances; Z91.030 Bee allergy status
CPT/HCPCS: 36415; 74020; 80053; 83605; 83690; 85025; 86140; 93005; 96361; 96374; 96375; 99283; J2270; J2405

== ENCOUNTER → 2017-06-30 11:15 | Emergency (ER) | payer MEDICARE, BC ==
[~2017-06-30 11:15] MED LIST: NS 0.9% 1000 ML* 1,000 ML IV ONE; Potassium Chlor TAB* 20 MEQ TAB.ER PO ONE; guaiFENesin/CODIEN 100MG-10MG* 5 ML UDC PO ONE
[2017-06-30 12:08] LABS: Hematocrit 44 % (42-52); Hemoglobin 14.8 g/dl (14.0-18.0); Mean Corpuscular HGB Conc 34 g/dl (31-36); Mean Corpuscular Hemoglobin 30 pg (27-31); Mean Corpuscular Volume 87 fL (80-94); Mean Platelet Volume 8 um3 (7.4-10.4); Red Blood Count 5.02 10^6/ul (4.0-5.4); Red Cell Distribution Width 14 % (10.5-15); White Blood Count 6.5 10^3/ul (3.5-10.8)
[2017-06-30 12:33] LABS: Albumin 3.9 g/dL (3.2-5.2); BUN/Creatinine Ratio 14.9 (8-20); Calcium 8.9 mg/dL (8.6-10.3); Globulin 3.4 g/dL (2-4); Potassium 3.4 mmol/L (3.5-5.0); Total Bilirubin 0.4 mg/dL (0.2-1.0); Total Protein 7.3 g/dL (6.4-8.9)
--- NOTE | 2017-06-30 13:16 | RAD ---
Indication: Chest pain. 2 views of the chest including dual energy PA views demonstrates no mediastinal shift. Heart is of normal size and configuration. Hyperinflated lung bates are noted. No pleural fluid, pneumonia or pneumothorax is noted. When compared to previous exam of November 21, 2016 no significant change is noted. IMPRESSION: No active cardiopulmonary disease is noted.
[2017-06-30 14:45] LABS: Urine Bacteria Absent (Absent); Urine Bilirubin Negative (Negative); Urine Glucose Negative (Negative); Urine Nitrite Negative (Negative)
[2017-06-30 15:03] VITALS: BP 115/65
--- NOTE | 2017-06-30 18:44 | ED ---
Eloy Ortega Angela, scribed for Clif Wren MD on 06/30/17 at 1140 . Respiratory - HPI Summary HPI Summary: This pt is a 72 y/o male presenting to [facility] c/o cough and congestion x5 days. Pt additionally c/o chest pain worse with cough. He states his cough is productive with some phlegm. Pt denies SOB, fever, nausea, and vomiting. He states he got a flu shot 5 days ago and has been sick ever since. Pt reports his symptoms have been worsening every day. PMHx includes pneumonia. - History of Current Complaint Chief Complaint: EDChestWallPain Stated Complaint: CHEST PAIN Time Seen by Provider: 06/30/17 11:34 Hx Obtained From: Patient Onset/Duration: Lasting Days, Still Present Timing: Constant Pain Intensity: 8 Character: Cough (Productive) Sputum Amount: Small Aggravating Factor(s): Other - cough Alleviating Factor(s): Nothing Associated Signs and Symptoms: Chest Pain, Chest Pain with Cough, Nasal Congestion - Allergy/Home Medications Allergies/Adverse Reactions: Allergies Allergy/AdvReac Type Severity Reaction Status Date / Time Bee Venom Allergy Unknown See Comment Verified 02/07/17 23:25 Celecoxib [From Celebrex] Allergy Rash Verified 02/07/17 23:25 PMH/Surg Hx/FS Hx/Imm Hx Endocrine/Hematology History: Reports: Hx Anticoagulant Therapy - 81 mg aspirin daily for the "last couple of days." Denies: Hx Diabetes, Hx Thyroid Disease Cardiovascular History: Reports: Hx Angina Denies: Hx Congestive Heart Failure, Hx Deep Vein Thrombosis, Hx Hypertension , Hx Myocardial Infarction, Hx Pacemaker/ICD Respiratory History: Reports: Hx Pleural Effusion, Hx Pneumonia - "many times", Other Respiratory Problems/Disorders - pl eff Denies: Hx Asthma, Hx Chronic Obstructive Pulmonary Disease (COPD), Hx Lung Cancer, Hx Pulmonary Embolism, Hx Sleep Apnea - pt denies GI History: Reports: Hx Gall Bladder Disease - removed, Hx Hiatal Hernia, Other GI Disorders - chronic diarrhea Denies: Hx Gastrointestinal Bleed, Hx Ulcer, Hx Urosepsis History: Reports: Hx Kidney Stones Denies: Hx Dialysis, Hx Renal Disease Musculoskeletal History: Reports: Other Musculoskeletal History - HX OF PAIN IN R NECK, BILATERAL SHOULDERS, right upper chest Sensory History: Reports: Hx Cataracts - 2013, Hx Hearing Aid - (LEFT) DOES NOT WEAR IT, Hx Hearing Problem Denies: Hx Contacts or Glasses Opthamlomology History: Reports: Hx Cataracts - 2012 Denies: Hx Contacts or Glasses Neurological History: Reports: Other Neuro Impairments/Disorders - chronic vertigo Denies: Hx Dementia, Hx Migraine, Hx Seizures, Hx Transient Ischemic Attacks (TIA) Psychiatric History: Denies: Hx Anxiety, Hx Depression, Hx Panic Disorder, Hx Schizophrenia, Hx Bipolar Disorder - Surgical History Surgery Procedure, Year, and Place: Right Inguinal hernia 2013 (?). 2012- [facility]ARACTS [facility] [place]. [place]' KNEE REPAIR WITH CAST. Cholecystectomy 06/14 Hx Anesthesia Reactions: No - Immunization History Date of Tetanus Vaccine: Up to date Date of Influenza Vaccine: 2014 Infectious Disease History: No Infectious Disease History: Reports: Hx Shingles - hx Denies: Hx Clostridium Difficile, Hx Hepatitis, Hx Human Immunodeficiency Virus (HIV), Hx of Known/Suspected MRSA, Hx Tuberculosis, Hx Known/Suspected VRE , Hx Known/Suspected VRSA, History Other Infectious Disease, Traveled Outside the [place] in Last 30 Days - Family History Known Family History: Positive: Cardiac Disease, Hypertension, Diabetes - Social History Alcohol Use: Occasionally Alcohol Amount: 3 drinks per month Hx Substance Use: No Substance Use Type: Reports: None Hx Tobacco Use: No Smoking Status (MU): Never Smoked Tobacco Have You Smoked in the Last Year: No Review of Systems Negative: Fever, Chills Positive: Other - congestion Positive: Chest Pain Positive: Cough. Negative: Shortness Of Breath Negative: Vomiting, Nausea All Other Systems Reviewed And Are Negative: Yes Physical Exam - Summary Physical Exam Summary: VITAL SIGNS: Reviewed. GENERAL: Patient is a well-developed and nourished male who is lying comfortable in the stretcher. Patient is not in any acute respiratory distress. Pt is a little bit dehydrated. HEAD AND FACE: No signs of trauma. No ecchymosis, hematomas or skull depressions. No sinus tenderness. EYES: PERRLA, EOMI x 2, No injected conjunctiva, no nystagmus. EARS: Hearing grossly intact. Ear canals and tympanic membranes are within normal limits. MOUTH: Oropharynx within normal limits. NECK: Supple, trachea is midline, no adenopathy, no JVD, no carotid bruit, no c- spine tenderness, neck with full ROM. CHEST: Symmetric, no tenderness at palpation LUNGS: Clear to auscultation bilaterally. No wheezing or crackles. CVS: Regular rate and rhythm, S1 and S2 present, no murmurs or gallops appreciated. ABDOMEN: Soft, non-tender. No signs of distention. No rebound no guarding, and no masses palpated. Bowel sounds are normal. EXTREMITIES: FROM in all major joints, no edema, no cyanosis or clubbing. NEURO: Alert and oriented x 3. No acute neurological deficits. Speech is normal and follows commands. SKIN: Dry and warm Triage Information Reviewed: Yes Vital Signs On Initial Exam: Initial Vitals Temp Pulse Resp BP Pulse Ox 99 F 88 18 139/84 98 06/30/17 11:16 06/30/17 11:16 06/30/17 11:16 06/30/17 11:16 06/30/17 11:16 Vital Signs Reviewed: Yes Diagnostics - Vital Signs Vital Signs Temp Pulse Resp BP Pulse Ox 06/30/17 11:16 99 F 88 18 139/84 98 - Laboratory Lab Results: Lab Results 06/30/17 06/30/17 06/30/17 Range/Units 12:00 12:00 12:00 WBC 6.5 (3.5-10.8) 10^3/ul RBC 5.02 (4.0-5.4) 10^6/ul Hgb 14.8 (14.0-18.0) g/dl Hct 44 (42-52) % MCV 87 (80-94) fL MCH 30 (27-31) pg MCHC 34 (31-36) g/dl RDW 14 (10.5-15) % Plt Count 159 (150-450) 10^3/ul MPV 8 (7.4-10.4) um3 Neut % (Auto) 78.0 (38-83) % Lymph % (Auto) 9.6 L (25-47) % [place] % (Auto) 11.3 H (1-9) % Eos % (Auto) 0.7 (0-6) % Baso % (Auto) 0.4 (0-2) % Absolute Neuts (auto) 5.1 (1.5-7.7) 10^3/ul Absolute Lymphs (auto) 0.6 L (1.0-4.8) 10^3/ul Absolute Monos (auto) 0.7 (0-0.8) 10^3/ul Absolute Eos (auto) 0 (0-0.6) 10^3/ul Absolute Basos (auto) 0 (0-0.2) 10^3/ul Absolute Nucleated RBC 0 10^3/ul Nucleated RBC % 0 Sodium 132 L (133-145) mmol/L Potassium 3.4 L (3.5-5.0) mmol/L Chloride 100 L (101-111) mmol/L Carbon Dioxide 22 (22-32) mmol/L Anion Gap 10 (2-11) mmol/L BUN 17 (6-24) mg/dL Creatinine 1.14 (0.67-1.17) mg/dL Est GFR ( Amer) 81.0 (>60) Est GFR (Non-Af Amer) 63.0 (>60) BUN/Creatinine Ratio 14.9 (8-20) Glucose 95 (70-100) mg/dL Calcium 8.9 (8.6-10.3) mg/dL Total Bilirubin 0.40 (0.2-1.0) mg/dL AST 17 (13-39) U/L ALT 11 (7-52) U/L Alkaline Phosphatase 82 (34-104) U/L Total Creatine Kinase 54 (10-223) U/L CK-MB (CK-2) 1.2 (0.6-6.3) ng/mL Troponin I 0.00 (<0.04) ng/mL B-Natriuretic Peptide 13 ( - 100) pg/mL Total Protein 7.3 (6.4-8.9) g/dL Albumin 3.9 (3.2-5.2) g/dL Globulin 3.4 (2-4) g/dL Albumin/Globulin Ratio 1.1 (1-3) Urine Color Urine Appearance Urine pH (5-9) Ur Specific [place] (1.010-1.030) Urine Protein (Negative) Urine Ketones (Negative) Urine Blood (Negative) Urine Nitrate (Negative) Urine Bilirubin (Negative) Urine Urobilinogen (Negative) Ur Leukocyte Esterase (Negative) Urine WBC (Auto) (Absent) Urine RBC (Auto) (Absent) Urine Bacteria (Absent) Urine Glucose (Negative) 06/30/17 06/30/17 Range/Units 14:11 14:24 WBC (3.5-10.8) 10^3/ul RBC (4.0-5.4) 10^6/ul Hgb (14.0-18.0) g/dl Hct (42-52) % MCV (80-94) fL MCH (27-31) pg MCHC (31-36) g/dl RDW (10.5-15) % Plt Count (150-450) 10^3/ul MPV (7.4-10.4) um3 Neut % (Auto) (38-83) % Lymph % (Auto) (25-47) % [place] % (Auto) (1-9) % Eos % (Auto) (0-6) % Baso % (Auto) (0-2) % Absolute Neuts (auto) (1.5-7.7) 10^3/ul Absolute Lymphs (auto) (1.0-4.8) 10^3/ul Absolute Monos (auto) (0-0.8) 10^3/ul Absolute Eos (auto) (0-0.6) 10^3/ul Absolute Basos (auto) (0-0.2) 10^3/ul Absolute Nucleated RBC 10^3/ul Nucleated RBC % Sodium (133-145) mmol/L Potassium (3.5-5.0) mmol/L Chloride (101-111) mmol/L Carbon Dioxide (22-32) mmol/L Anion Gap (2-11) mmol/L BUN (6-24) mg/dL Creatinine (0.67-1.17) mg/dL Est GFR ( Amer) (>60) Est GFR (Non-Af Amer) (>60) BUN/Creatinine Ratio (8-20) Glucose (70-100) mg/dL Calcium (8.6-10.3) mg/dL Total Bilirubin (0.2-1.0) mg/dL AST (13-39) U/L ALT (7-52) U/L Alkaline Phosphatase (34-104) U/L Total Creatine Kinase (10-223) U/L CK-MB (CK-2) (0.6-6.3) ng/mL Troponin I 0.00 (<0.04) ng/mL B-Natriuretic Peptide ( - 100) pg/mL Total Protein (6.4-8.9) g/dL Albumin (3.2-5.2) g/dL Globulin (2-4) g/dL Albumin/Globulin Ratio (1-3) Urine Color Yellow Urine Appearance Clear Urine pH 6.0 (5-9) Ur Specific [place] 1.009 L (1.010-1.030) Urine Protein Negative (Negative) Urine Ketones Negative (Negative) Urine Blood 1+ H (Negative) Urine Nitrate Negative (Negative) Urine Bilirubin Negative (Negative) Urine Urobilinogen Negative (Negative) Ur Leukocyte Esterase Negative (Negative) Urine WBC (Auto) Trace(0-5/hpf) (Absent) Urine RBC (Auto) 1+(3-5/hpf) H (Absent) Urine Bacteria Absent (Absent) Urine Glucose Negative (Negative) Result Diagrams: 06/30/17 12:00 06/30/17 12:00 Lab Statement: Any lab studies that have been ordered have been reviewed, and results considered in the medical decision making process. - Radiology Chest XR Xray Interpretation: No Acute Changes - IMPRESSION: No active cardiopulmonary disease is noted. ED physician has reviewed this radiology report and agrees. Radiology Interpretation Completed By: Radiologist - EKG 1157 Cardiac Rate: NL - 76 bpm EKG Rhythm: Sinus Rhythm EKG Interpretation: No ST elevations Disposition - Course Assessment/Plan: This pt is a 72 y/o male presenting to [facility] c/o cough and congestion x5 days. Pt additionally c/o chest pain worse with cough. He states his cough is productive with some phlegm. Pt denies SOB, fever, nausea, and vomiting. He states he got a flu shot 5 days ago and has been sick ever since. Pt reports his symptoms have been worsening every day. PMHx includes pneumonia. Test results without any significant abnormalities except for potassium of 3.4, for which he was given potassium chloride. Chest XR is negative for pneumonia. The pt was given Robitussin for the cough and his symptoms significantly improved. At this point the pt is feeling better. The 2 troponin, 4 hours apart, were both negative. Therefore, the pt will be discharged home with follow up from PCP. Pt is hemodynamically stable, alert and oriented x3. - Differential Dx - Cardiopulmonary Differential Diagnoses - Cardiopulmonary: Bronchitis, CHF, Chest Wall Pain, Influenza - Diagnoses Provider Diagnoses: Chest wall pain, Cough Discharge - Discharge Plan Condition: Stable Disposition: HOME Prescriptions: guaiFENesin/CODIEN 100MG-10MG* [Robitussin AC 100Mg-10Mg*] 5 ml PO Q6H PRN #[id number] udc MDD 15 ml PRN Reason: Cough Patient Education Materials: Chest Wall Pain (ED), Acute Cough (ED) Referrals: Angi Millan MD [Primary Care Provider] - Additional Instructions: Please follow up with your primary care provider. Take medications as indicated. RETURN TO THE ED FOR ANY WORSENING SYMPTOMS. The documentation as recorded by the Eloy sotomayor Angela accurately reflects the service I personally performed and the decisions made by Holger gaytan Walter, MD.
== END | disposition home or self-care (01) ==
LOC: ED 11:15
DX: R07.89 Other chest pain (principal); R05 Cough; R09.81 Nasal congestion; Z79.01 Long term (current) use of anticoagulants
CPT/HCPCS: 36415; 71020; 80053; 81003; 81015; 82550; 82553; 83880; 84484; 85025; 93005; 99282; A9270-GY

== ENCOUNTER 2017-07-29 09:48 | Emergency (ER) | payer BC, MEDICARE ==
[2017-07-29] MEDS ORDERED: NS 0.9% 1000 ML* 1,000 ML IV ONE (10:37)
[2017-07-29] MEDS ORDERED: Ondansetron INJ* 2 MG/ML VIAL IV ONE (10:37)
[2017-07-29] MEDS ORDERED: Morphine INJ* 4 MG/ML 1 ML CARPUJECT IV ONE (10:37)
[2017-07-29 11:01] LABS: Hematocrit 43 % (42-52); Hemoglobin 14.2 g/dl (14.0-18.0); Mean Corpuscular HGB Conc 33 g/dl (31-36); Mean Corpuscular Hemoglobin 30 pg (27-31); Mean Corpuscular Volume 89 fL (80-94); Mean Platelet Volume 8 um3 (7.4-10.4); Red Blood Count 4.79 10^6/ul (4.0-5.4); Red Cell Distribution Width 14 % (10.5-15); White Blood Count 6.3 10^3/ul (3.5-10.8)
[2017-07-29 11:21] LABS: BUN/Creatinine Ratio 14.2 (8-20); C Reactive Protein 1.02 mg/L (< 5.00); Calcium 9.5 mg/dL (8.6-10.3); EGFR African American 67.2 (>60); EGFR Non-African American 52.3 (>60); Globulin 2.9 g/dL (2-4); Potassium 3.8 mmol/L (3.5-5.0); Total Bilirubin 0.4 mg/dL (0.2-1.0); Total Protein 6.9 g/dL (6.4-8.9)
[2017-07-29 11:32] LABS: Urine Bacteria 1+ (Absent); Urine Bilirubin Negative (Negative); Urine Glucose Negative (Negative); Urine Nitrite Negative (Negative)
[2017-07-29] MEDS ORDERED: Iodixanol* (CONTRAST) 320 MG/ML 100 ML SDV IV ONE (11:48)
--- NOTE | 2017-07-29 13:37 | RAD ---
INDICATION: MID suprapubic and right lower quadrant pain. COMPARISON: Comparison is made with a prior CT angiogram of the chest from November 19, 2015 [address] prior CTs of the abdomen and pelvis from January 02, 2015 and June 29, 2015. Correlation is also made with a CT of the chest from November 09, 2013. TECHNIQUE: A CT scan of the abdomen and pelvis was performed with intravenous and oral contrast following intravenous injection of 76 ml of Visipaque 320 nonionic contrast. Contiguous axial sections were obtained from the lung bases through the symphysis pubis. Images were reconstructed in the coronal and sagittal planes. FINDINGS: There is mild dependent bilateral lower lobe subsegmental atelectasis. No pleural effusion is present. There are enlarged lymph nodes present adjacent to the distal esophagus which are most prominent in the azygos esophageal recess measuring up to 2.1 cm in size. These are unchanged from prior studies. The liver and spleen are normal in size without significant focal abnormality. The patient is status post cholecystectomy. The pancreas appears to be within normal limits. The kidneys and adrenal glands are normal in size. No hydronephrosis is seen. No significant focal renal abnormality is seen. The aorta is normal in caliber with mild calcific plaque present. No significant enlarged retroperitoneal or mesenteric lymph nodes are seen. The stomach, small and large bowel appear nondistended. The appendix is within normal limits. There is fluid present throughout the colon suggesting the possibility of a diarrheal illness. No wall thickening or fatty infiltration as noted. No free intraperitoneal air or fluid is seen. No significant focal osseous abnormality is seen. IMPRESSION: 1. FLUID IS NOTED WITHIN THE COLON SUGGESTING THE POSSIBILITY OF A DIARRHEAL ILLNESS. 2. STATUS POST CHOLECYSTECTOMY. 3. STABLE ENLARGED LYMPH NODES IN THE VISUALIZED LOWER MEDIASTINUM ADJACENT TO THE DISTAL ESOPHAGUS.
--- NOTE | 2017-07-29 14:00 | ED ---
Lyndon Ortega Nilda, scribed for Teresa Gusman MD on 07/29/17 at 1025 . Abdominal Pain/Male - HPI Summary HPI Summary: This patient is a 72 year old M presenting to [facility] with a chief complaint of constant sharp suprapubic pain for the past two day. The patient rates the pain 4/10 in severity. Symptoms aggravated by movement and alleviated by nothing. Patient reports weakness, dizziness, and diarrhea (watery, 5-6x per day). Patient denies N/V, fever, dysuria, and urinary retention. Pt states that he had a hernia 3-4 years ago and hes concerned symptoms are due to hernia. - History of Current Complaint Chief Complaint: EDAbdPain Stated Complaint: ABD PAIN Hx Obtained From: Patient Timing: Constant Severity Currently: Moderate Pain Intensity: 4 Pain Scale Used: 0-10 Numeric Location: Suprapubic Radiates: No Aggravating Factor(s): Movement Alleviating Factor(s): Nothing Associated Signs And Symptoms: Positive: Dizzy, Diarrhea, Other - Patient denies N/V, fever, dysuria, and urinary retention.. Negative: Nausea, Vomiting - Allergies/Home Medications Allergies/Adverse Reactions: Allergies Allergy/AdvReac Type Severity Reaction Status Date / Time Bee Venom Allergy Unknown See Comment Verified 02/07/17 23:25 Celecoxib [From Celebrex] Allergy Rash Verified 02/07/17 23:25 Home Medications: Home Medications Ibuprofen TAB* [Motrin TAB* 600 MG] 600 mg PO TID PRN 07/29/17 [History Confirmed 07/29/17] PMH/Surg Hx/FS Hx/Imm Hx Endocrine/Hematology History: Reports: Hx Anticoagulant Therapy - 81 mg aspirin daily for the "last couple of days." Denies: Hx Diabetes, Hx Thyroid Disease Cardiovascular History: Reports: Hx Angina Denies: Hx Congestive Heart Failure, Hx Deep Vein Thrombosis, Hx Hypercholesterolemia, Hx Hypertension, Hx Myocardial Infarction, Hx Pacemaker/ ICD Respiratory History: Reports: Hx Pleural Effusion, Hx Pneumonia - "many times", Other Respiratory Problems/Disorders - pl eff Denies: Hx Asthma, Hx Chronic Obstructive Pulmonary Disease (COPD), Hx Lung Cancer, Hx Pulmonary Embolism, Hx Sleep Apnea - pt denies GI History: Reports: Hx Gall Bladder Disease - removed, Hx Hiatal Hernia, Other GI Disorders - chronic diarrhea Denies: Hx Gastrointestinal Bleed, Hx Ulcer, Hx Urosepsis History: Reports: Hx Kidney Stones Denies: Hx Dialysis, Hx Renal Disease Musculoskeletal History: Reports: Other Musculoskeletal History - HX OF PAIN IN R NECK, BILATERAL SHOULDERS, right upper chest Sensory History: Reports: Hx Cataracts - 2012, Hx Hearing Aid - (LEFT) DOES NOT WEAR IT, Hx Hearing Problem Denies: Hx Contacts or Glasses Opthamlomology History: Reports: Hx Cataracts - 2012 Denies: Hx Contacts or Glasses Neurological History: Reports: Other Neuro Impairments/Disorders - chronic vertigo Denies: Hx Dementia, Hx Migraine, Hx Seizures, Hx Transient Ischemic Attacks (TIA) Psychiatric History: Denies: Hx Anxiety, Hx Depression, Hx Panic Disorder, Hx Schizophrenia, Hx Bipolar Disorder - Surgical History Surgery Procedure, Year, and Place: Right Inguinal hernia 2013 (?). [place] [place] WITH CAST. Cholecystectomy 06/14 Hx Anesthesia Reactions: No - Immunization History Date of Tetanus Vaccine: Up to date Date of Influenza Vaccine: 2014 Infectious Disease History: No Infectious Disease History: Reports: Hx Shingles - hx Denies: Hx Clostridium Difficile, Hx Hepatitis, Hx Human Immunodeficiency Virus (HIV), Hx of Known/Suspected MRSA, Hx Tuberculosis, Hx Known/Suspected VRE , Hx Known/Suspected VRSA, History Other Infectious Disease, Traveled Outside the [place] in Last 30 Days - Family History Known Family History: Positive: Cardiac Disease, Hypertension, Diabetes - Social History Occupation: Employed Full-time Lives: With Family Alcohol Use: Occasionally Alcohol Amount: 3 drinks per month Hx Substance Use: No Substance Use Type: Reports: None Hx Tobacco Use: No Smoking Status (MU): Never Smoked Tobacco Have You Smoked in the Last Year: No Review of Systems Negative: Fever Positive: Abdominal Pain - suprapubic pain, Diarrhea. Negative: Vomiting, Nausea Positive: other - negative urinary retention. Negative: dysuria Neurological: Other - dizziness Positive: Weakness All Other Systems Reviewed And Are Negative: Yes Physical Exam - Summary Physical Exam Summary: General: Well appearing, no pain distress Skin: Warm, Skin Color Reflects Adequate Perfusion, Dry Eyes: EOMI, ANGI ENT: Pharynx normal, TMs normal, dry mucous membranes Neck: Supple, nontender Respiratory: CTA, breath sounds present, no rhonchi, no wheezes, no rales Cardiovascular: RRR, no murmur, no rub, no gallop Abdomen: Soft, mainly suprapubic tenderness, Non-distended, no guarding, no rebound Bowel: Present Musculoskeletal: MEENA, No edema Neuro: Sensory/motor intact, A&Ox3, CN intact 2-12 Psych: Affect/mood appropriate Triage Information Reviewed: Yes Vital Signs On Initial Exam: Initial Vitals Temp Pulse Resp BP Pulse Ox 98 F 66 18 122/67 98 07/29/17 09:53 07/29/17 09:53 07/29/17 09:53 07/29/17 09:53 07/29/17 09:53 Vital Signs Reviewed: Yes Diagnostics - Vital Signs Vital Signs Temp Pulse Resp BP Pulse Ox 07/29/17 09:53 98 F 66 18 122/67 98 - Laboratory Lab Results: Lab Results 07/29/17 07/29/17 07/29/17 Range/Units 10:09 10:09 11:14 WBC 6.3 (3.5-10.8) 10^3/ul RBC 4.79 (4.0-5.4) 10^6/ul Hgb 14.2 (14.0-18.0) g/dl Hct 43 (42-52) % MCV 89 (80-94) fL MCH 30 (27-31) pg MCHC 33 (31-36) g/dl RDW 14 (10.5-15) % Plt Count 227 (150-450) 10^3/ul MPV 8 (7.4-10.4) um3 Neut % (Auto) 68.3 (38-83) % Lymph % (Auto) 16.4 L (25-47) % [place] % (Auto) 9.2 H (1-9) % Eos % (Auto) 5.7 (0-6) % Baso % (Auto) 0.4 (0-2) % Absolute Neuts (auto) 4.3 (1.5-7.7) 10^3/ul Absolute Lymphs (auto) 1.0 (1.0-4.8) 10^3/ul Absolute Monos (auto) 0.6 (0-0.8) 10^3/ul Absolute Eos (auto) 0.4 (0-0.6) 10^3/ul Absolute Basos (auto) 0 (0-0.2) 10^3/ul Absolute Nucleated RBC 0 10^3/ul Nucleated RBC % 0.1 Sodium 135 (133-145) mmol/L Potassium 3.8 (3.5-5.0) mmol/L Chloride 107 (101-111) mmol/L Carbon Dioxide 22 (22-32) mmol/L Anion Gap 6 (2-11) mmol/L BUN 19 (6-24) mg/dL Creatinine 1.34 H (0.67-1.17) mg/dL Est GFR ( Amer) 67.2 (>60) Est GFR (Non-Af Amer) 52.3 (>60) BUN/Creatinine Ratio 14.2 (8-20) Glucose 90 (70-100) mg/dL Calcium 9.5 (8.6-10.3) mg/dL Total Bilirubin 0.40 (0.2-1.0) mg/dL AST 16 (13-39) U/L ALT 9 (7-52) U/L Alkaline Phosphatase 66 (34-104) U/L C-Reactive Protein 1.02 (< 5.00) mg/L Total Protein 6.9 (6.4-8.9) g/dL Albumin 4.0 (3.2-5.2) g/dL Globulin 2.9 (2-4) g/dL Albumin/Globulin Ratio 1.4 (1-3) Lipase 28 (11.0-82.0) U/L Urine Color Yellow Urine Appearance Clear Urine pH 5.0 (5-9) Ur Specific [place] 1.008 L (1.010-1.030) Urine Protein Negative (Negative) Urine Ketones Negative (Negative) Urine Blood 1+ H (Negative) Urine Nitrate Negative (Negative) Urine Bilirubin Negative (Negative) Urine Urobilinogen Negative (Negative) Ur Leukocyte Esterase Negative (Negative) Urine WBC (Auto) Trace(0-5/hpf) (Absent) Urine RBC (Auto) Trace(0-2/hpf) (Absent) Urine Bacteria 1+ H (Absent) Urine Glucose Negative (Negative) Result Diagrams: 07/29/17 10:09 07/29/17 10:09 Lab Statement: Any lab studies that have been ordered have been reviewed, and results considered in the medical decision making process. - CT Abd/Pel CT Interpretation Completed By: Radiologist - CT abd/pel, per radiologist, reveals 1. FLUID IS NOTED WITHIN THE COLON SUGGESTING THE POSSIBILITY OF A DIARRHEAL ILLNESS. 2. STATUS POST CHOLECYSTECTOMY. 3. STABLE ENLARGED LYMPH NODES IN THE VISUALIZED LOWER MEDIASTINUM ADJACENT TO THE DISTAL ESOPHAGUS. ED physician has reviewed this radiology report and agrees. - EKG 1043 Cardiac Rate: Bradycardia EKG Rhythm: Sinus Bradycardia - 52 bpm EKG Interpretation: no STEMI EKG Comparison: No Significant Change - from 02/08/17 Re-Evaluation - Re-Evaluation First Eval Re-Evaluation Time: 13:42 Comment: Reviewed labs. Pt agreeable to D/C. Abdominal Pain Fem Course/Dx - Course Assessment/Plan: CT abd/pel, per radiologist, reveals. 1. FLUID IS NOTED WITHIN THE COLON SUGGESTING THE POSSIBILITY OF A DIARRHEAL ILLNESS. 2. STATUS POST CHOLECYSTECTOMY. 3. STABLE ENLARGED LYMPH NODES IN THE VISUALIZED LOWER MEDIASTINUM ADJACENT TO THE DISTAL ESOPHAGUS. ED physician has reviewed this radiology report and agrees. pt with mild abd pain and increased water in his normally soft stool. ct was neg for acute findings and labs were negative. Pt received fluid here and is feeling alot better and safe for discharge - Diagnoses Provider Diagnoses: Diarrhea, Abdominal pain Discharge - Discharge Plan Condition: Stable Disposition: HOME Prescriptions: HYDROcodone/ACETAMIN 5-325 MG* [[place] 5-325 TAB*] 1 tab PO Q8H PRN #9 tab MDD 9 PRN Reason: Pain Patient Education Materials: Acute Diarrhea (ED), Acute Abdominal Pain (ED) Referrals: Angi Millan MD [Primary Care Provider] - 3 Days Additional Instructions: RETURN TO THE EMERGENCY DEPARTMENT FOR CHANGING OR WORSENING SYMPTOMS. The documentation as recorded by the Lyndon sotomayor Nilda accurately reflects the service I personally performed and the decisions made by me, Teresa Gusman MD.
[2017-07-29 14:13] VITALS: BP 127/71
== END 2017-07-29 14:12 | disposition home or self-care (01) ==
LOC: ED 09:48
DX: R19.7 Diarrhea, unspecified (principal); R10.9 Unspecified abdominal pain; R33.9 Retention of urine, unspecified; R42 Dizziness and giddiness; R50.9 Fever, unspecified; Z79.01 Long term (current) use of anticoagulants; R53.1 Weakness
CPT/HCPCS: 36415; 74177; 80053; 81003; 81015; 83690; 85025; 86140; 87086; 93005; 96374; 96375; 99282; J2270; J2405; Q9967

== ENCOUNTER 2018-04-15 08:16 | Emergency (ER) | payer BC, MEDICARE ==
[2018-04-15] MEDS ORDERED: Al Hydrox/Mg Hydrox/Simet LIQ* 30 ML UDC PO ONE (10:40)
[2018-04-15] MEDS ORDERED: Lidocaine 2% VISCOUS* 15 ML UDC PO ONE (10:40)
--- NOTE | 2018-04-15 10:47 | ED ---
Abdominal Pain/Male - HPI Summary HPI Summary: Pt is a 70 y/o M c/o abdominal pain onset ~2 days ago. Pain is described as acute and rated a 10/10 at its worse, per valve technician. Assoc. Sx: Abd pain, diarrhea. Denies: melena, nausea, vomiting. He reports having experienced worsened diarrhea with abd pain. Patient notes that he took an oxycodone 0700 this AM which failed to alleviate Sx. SHx: occasional EtOH. - History of Current Complaint Chief Complaint: EDAbdPain Stated Complaint: ABD PAIN Time Seen by Provider: 04/15/18 08:37 Hx Obtained From: Patient Onset/Duration: Sudden Onset, Lasting Days, Still Present Timing: Constant Severity Currently: Severe Pain Intensity: 10 Pain Scale Used: 0-10 Numeric Location: Epigastric Alleviating Factor(s): Nothing Associated Signs And Symptoms: Positive: Diarrhea, Other - POS: Abd pain. Negative: Blood in Stool, Nausea, Vomiting - Allergies/Home Medications Allergies/Adverse Reactions: Allergies Allergy/AdvReac Type Severity Reaction Status Date / Time bee venom protein (honey bee) Allergy Swelling Verified 04/15/18 08:25 Of Face,Lips,& Throat celecoxib [From Celebrex] Allergy Rash Verified 04/15/18 08:25 Home Medications: Home Medications NK [No Home Medications Reported] 04/15/18 [History Confirmed 04/15/18] PMH/Surg Hx/FS Hx/Imm Hx Endocrine/Hematology History: Reports: Hx Anticoagulant Therapy - 81 mg aspirin daily for the "last couple of days." Denies: Hx Diabetes, Hx Thyroid Disease Cardiovascular History: Reports: Hx Angina Denies: Hx Congestive Heart Failure, Hx Deep Vein Thrombosis, Hx Hypercholesterolemia, Hx Hypertension, Hx Myocardial Infarction, Hx Pacemaker/ ICD Respiratory History: Reports: Hx Pleural Effusion, Hx Pneumonia - "many times", Other Respiratory Problems/Disorders - pl eff Denies: Hx Asthma, Hx Chronic Obstructive Pulmonary Disease (COPD), Hx Lung Cancer, Hx Pulmonary Embolism, Hx Sleep Apnea - pt denies GI History: Reports: Hx Gall Bladder Disease - removed, Hx Hiatal Hernia, Other GI Disorders - chronic diarrhea Denies: Hx Gastrointestinal Bleed, Hx Ulcer, Hx Urosepsis History: Reports: Hx Kidney Stones Denies: Hx Dialysis, Hx Renal Disease Musculoskeletal History: Reports: Other Musculoskeletal History - HX OF PAIN IN R NECK, BILATERAL SHOULDERS, right upper chest Sensory History: Reports: Hx Cataracts - 2013, Hx Hearing Aid - (LEFT) DOES NOT WEAR IT, Hx Hearing Problem Denies: Hx Contacts or Glasses Opthamlomology History: Reports: Hx Cataracts - 2012 Denies: Hx Contacts or Glasses Neurological History: Reports: Other Neuro Impairments/Disorders - chronic vertigo Denies: Hx Dementia, Hx Migraine, Hx Seizures, Hx Transient Ischemic Attacks (TIA) Psychiatric History: Denies: Hx Anxiety, Hx Depression, Hx Panic Disorder, Hx Schizophrenia, Hx Bipolar Disorder - Surgical History Surgery Procedure, Year, and Place: Right Inguinal hernia 2013 (?). 2012- CATARACTS B[facility]. KNEE REPAIR WITH CAST. Cholecystectomy 06/14 Hx Anesthesia Reactions: No - Immunization History Date of Tetanus Vaccine: Up to date Date of Influenza Vaccine: 2014 Infectious Disease History: No Infectious Disease History: Reports: Hx Shingles - hx Denies: Hx Clostridium Difficile, Hx Hepatitis, Hx Human Immunodeficiency Virus (HIV), Hx of Known/Suspected MRSA, Hx Tuberculosis, Hx Known/Suspected VRE , Hx Known/Suspected VRSA, History Other Infectious Disease, Traveled Outside the [place] in Last 30 Days - Family History Known Family History: Positive: Cardiac Disease, Hypertension, Diabetes - Social History Occupation: Retired Lives: With Family Alcohol Use: Occasionally Alcohol Amount: 3 drinks per month Hx Substance Use: No Substance Use Type: Reports: None Hx Tobacco Use: No Smoking Status (MU): Never Smoked Tobacco Have You Smoked in the Last Year: No Review of Systems Negative: Fever, Chills, Fatigue, Skin Diaphoresis Negative: Photophobia, Blurred Vision, Diplopia, Drainage, Erythema Negative: Epistaxis, Dental Pain, Sore Throat, Ear Ache, Nasal Discharge Negative: Palpitations, Chest Pain Negative: Shortness Of Breath, Cough Positive: Abdominal Pain, Diarrhea. Negative: Vomiting, Nausea Positive: other - NEG: melena. Negative: burning, dysuria, discharge, frequency , flank pain, hematuria, incontinence, pain, urgency Negative: Arthralgia, Myalgia, Decreased ROM, Edema Negative: Rash, Bruising Negative: Headache, Weakness, Paresthesia, Numbness, Syncope, Slurred Speech Negative: Anxious, Depressed All Other Systems Reviewed And Are Negative: Yes Physical Exam - Summary Physical Exam Summary: Constitutional: Well-developed, Well-nourished, Alert. (-) Distressed Skin: Warm, Dry HENT: Normocephalic; Atraumatic Eyes: Conjunctiva normal Neck: Musculoskeletal ROM normal neck. (-) JVD, (-) Stridor, (-) Tracheal deviation Cardio: Rhythm regular, rate normal, Heart sounds normal; Intact distal pulses; The pedal pulses are 2+ and symmetric. Radial pulses are 2+ and symmetric. (-) Murmur Pulmonary/Chest wall: Effort normal. (-) Respiratory distress, (-) Wheezes, (-) Rales Abd: Soft, (-) epigastric tenderness, (-) Distension, (-) Guarding, (-) Rebound Musculoskeletal: (-) Edema Lymph: (-) Cervical adenopathy Neuro: Alert, Oriented x3 Psych: Mood and affect Normal Triage Information Reviewed: Yes Vital Signs On Initial Exam: Initial Vitals Temp Pulse Resp BP Pulse Ox 98.9 F 68 15 138/75 97 04/15/18 08:21 04/15/18 08:21 04/15/18 08:21 04/15/18 08:21 04/15/18 08:21 Vital Signs Reviewed: Yes Diagnostics - Vital Signs Vital Signs Temp Pulse Resp BP Pulse Ox 04/15/18 10:21 59 105/63 95 04/15/18 10:00 60 04/15/18 09:51 68 116/74 96 04/15/18 09:21 59 110/62 95 04/15/18 09:00 59 94 04/15/18 08:51 59 113/66 95 04/15/18 08:21 98.9 F 68 15 138/75 97 - Laboratory Result Diagrams: 04/15/18 11:09 04/15/18 11:09 Lab Statement: Any lab studies that have been ordered have been reviewed, and results considered in the medical decision making process. - CT A/P CT CT Interpretation: Positive (See Comments) - IMPRESSION: Long-term persistent lymphadenopathy near the thoracoabdominal junction as described. Cholecystectomy. Areas of decreased caliber in the colon near the hepatic flexure may be related to colonic spasm. Consider colonoscopy if there are persistent GI complaints. No additional significant findings. CT Interpretation Completed By: Radiologist - Report has been reviewed by provider and radiologist Re-Evaluation - Re-Evaluation First Eval Re-Evaluation Time: 14:00 Change: Improved Comment: Pt is feeling much better and will be D/C home Abdominal Pain Fem Course/Dx - Course Course Of Treatment: Pt was seen by provider. He is feeling much better and will be D/C home. - Diagnoses Provider Diagnoses: Lymphadenopathy, Diarrhea Discharge - Sign-Out/Discharge Documenting (check all that apply): Patient Departure - Discharge Plan Condition: Stable Disposition: HOME Patient Education Materials: Lymphadenopathy (ED), Irritable Bowel Syndrome (ED ) Referrals: Angi Millan MD [Primary Care Provider] - [address] [facility] [place] [facility] [place]] Additional Instructions: RETURN TO THE EMERGENCY DEPARTMENT FOR CHANGING OR WORSENING SYMPTOMS
[2018-04-15 11:21] LABS: ABS Basophils 0 10^3/ul (0-0.2); ABS Eosinophils 0.6 10^3/ul (0-0.6); ABS Lymphocytes 0.9 10^3/ul (1.0-4.8); ABS Monocytes 0.7 10^3/ul (0-0.8); ABS Nucleated RBC 0 10^3/ul; Eosinophil % 5.4 % (0-6); Hematocrit 46 % (42-52); Hemoglobin 15.4 g/dl (14.0-18.0); Lymphocyte % 8.9 % (25-47); Mean Corpuscular HGB Conc 34 g/dl (31-36); Mean Corpuscular Hemoglobin 30 pg (27-31); Mean Corpuscular Volume 89 fL (80-94); Mean Platelet Volume 7.7 um3 (7.4-10.4); Nucleated Red Blood Cells % 0; Platelet Count 230 10^3/ul (150-450); Red Blood Count 5.17 10^6/ul (4.00-5.40); Red Cell Distribution Width 13 % (10.5-15); White Blood Count 10.2 10^3/ul (3.5-10.8)
[2018-04-15 11:40] LABS: EGFR Non-African American 65.6 (>60)
[2018-04-15] MEDS ORDERED: Iohexol 300* (CONTRAST) 10 ML SDV IV ONE (12:48)
--- NOTE | 2018-04-15 13:38 | RAD ---
INDICATION: Diffuse abdominal pain COMPARISON: CT abdomen pelvis July 29, 2017; CT chest May 22, 2017; CTA chest August 07, 2008 TECHNIQUE: Axial source images were obtained from the hemidiaphragms to the symphysis pubis following administration of oral and intravenous contrast. 85 mL Omnipaque 300 was utilized. Coronal and sagittal reconstructed images were acquired. Lung bases: The lung bases are clear. The cephalad most image shows a right paraesophageal lymphadenopathy. This is been seen on earlier imaging which showed confluent adenopathy extending caudally from the subcarinal region. This represent a chronic and previously described finding. Liver: The liver is normal in size. There are no masses. There is no ductal dilatation. Gallbladder: Cholecystectomy. Spleen: The spleen is normal in size. There are no masses. Pancreas: There is no focal pancreatic mass or ductal dilatation. Adrenal glands: There is no evidence of adrenal mass. Kidneys: The kidneys are normal in size and position. There are prompt nephrograms and there is prompt excretion bilaterally. There are no renal parenchymal masses. There is no evidence of nephrolithiasis. Adenopathy: There is borderline aortocaval and portacaval lymphadenopathy appearing essentially unchanged. Fluid collections: There are no free or localized fluid collections. Vessels:There are no significant atherosclerotic changes involving the aorta. There is no focal aneurysm. The iliac vessels are normal in caliber. The IVC appears normal. GI tract: The upper GI tract is unremarkable. The terminal ileum, cecum, ileocecal valve are normal. There are several areas of caliber change within the colon in the region of the hepatic flexure. This is likely related to colonic spasm.. At least one of these areas was present previously. Consider colonoscopy. Pelvic organs: The uterus and adnexa appear normal Bladder: There are no bladder masses. Abdominal and pelvic soft tissues: The extraperitoneal abdominal and pelvic soft tissues appear normal.. Osseous structures: There are no acute osseous findings. Other: None IMPRESSION: 1. Long-term persistent lymphadenopathy near the thoracoabdominal junction as described. 2. Cholecystectomy. 3. Areas of decreased caliber in the colon near the hepatic flexure may be related to colonic spasm. Consider colonoscopy if there are persistent GI complaints. 4. No additional significant findings.
[2018-04-15 14:00] LABS: Urine Appearance Clear; Urine Blood Negative (Negative); Urine Color Yellow; Urine Ketones Negative (Negative); Urine Protein Negative (Negative); Urine Specific Gravity 1.009 (1.010-1.030); Urine Urobilinogen Negative (Negative)
[2018-04-15 14:06] VITALS: BP 115/63
== END 2018-04-15 14:08 | disposition home or self-care (01) ==
LOC: ED 08:16
DX: R59.1 Generalized enlarged lymph nodes (principal); R19.7 Diarrhea, unspecified; Z79.82 Long term (current) use of aspirin; R10.9 Unspecified abdominal pain
CPT/HCPCS: 36415; 74177; 80053; 81003; 83605; 83690; 85025; 86140; 87045; 87046; 87077; 87493; 87899; 99283; A9270-GY; Q9967

== ENCOUNTER 2018-08-01 12:54 | Emergency (ER) | payer BC, MEDICARE ==
--- OUTSIDE RECORDS SUMMARY | 2018-08-01 13:07 | XMS REPORT ---
:1945 External Reference #:[id number] Author Organization Gary Roposo Address [address] [facility] [place] [address] [place] [address] Phone [phone] Care Team Providers Name Role Phone Angi Millan MD Primary Care Physician Unavailable Payers Type Date Identification Numbers Payment Provider Subscriber Commercial Policy Number: [id number] [employer] Demetrio Zuñiga PayID: [id number] [address] [address] [place] [address] Medigap Part B Effective: 2009 Policy Number: [id number] Medicare Sindhu Zuñiga PayID: [id number] [address] [place] [address] Problems Date Description Provider Status Onset: 12/06/2015 Disorder of lung Lolita Mata MD Active Onset: 01/15/2015 Strain of rotator cuff capsule Luis Lang M.D. Active Onset: 01/15/2015 Disorder of bursa of shoulder region Luis Lang M.D. Active Onset: 11/24/2013 Electrocardiogram abnormal Mitch Cuba M.D. Active Onset: 11/24/2013 Chest pain Mitch Cuba M.D. 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 Cigarette Use Never Smoked Cigarettes ETOH Use Rarely consumes alcohol Smoking Patient has never smoked Recreational Drug Use Denies Drug Use Daily Caffeine Consumes on average 3 cups of regular coffee per day Exercise Type/Frequency Exercises regularly Allergies, Adverse Reactions, Alerts Date Description Reaction Status Severity Comments 02/19/2017 Celebrex active rash/hives 08/14/2008 NKDA inactive Medications Medication Date Status Form Strength Qnty SIG Indications Ordering Provider Betamethasone / Active apply Unknown Dipropionate 0000 sparingly to rash Meclizine HCL 12/04/ Hx Chewtabs 25mg 1 three Unknown 2016 - times a 04/27/ day as 2017 needed Wrist Splint 01/10/ Hx 1units 354.0 Thananart Left Hand For 2008 - , Rosalia, Carpal Tunnel 11/23/ M.D. Syndrome 2013 K-Effervescent 08/16/ Hx Tablets 25Meq 3tabs 1 tab po Thananart 2007 - Efferv qd x 3 , Rosalia, 01/10/ M.D. 2008 Levaquin 08/14/ Hx Tablets 500mg 2tabs 1 PO qd X Thananart 2007 - 10 Days , Rosalia, 08/21/ M.D. 2007 Ibuprofen / Hx Tablets 600mg 90tabs 1 po q 8h Thananart 0000 - prn , Rosalia, 11/23/ M.D. 2013 Oxycodone/Aceta / Hx Tablets 5-325mg One Q 4 Unknown minophen 0000 - -6h po prn 2009 Proair HFA / Hx Aerosol 108(90Base 1units as needed Unknown 0000 - ) mcg/Act 2013 Benzonatate / Hx Capsules 200mg 30caps one by Unknown 0000 - mouth three 2017 times daily as needed for cough Guaifenesin ac / Hx 1-2 tsp po Unknown 0000 - prn 2015 Advil /00/ Hx prn (pt Unknown 0000 - doesn't 02/18/ know dose) 2017 Oxygen / Hx Misc 1units 2 Liter Unknown 0000 - prn 2017 Oxycodone-Aceta /00/ Hx Tablets 5-325mg 80tabs 1 po bid Unknown minophen 0000 - prn 2016 Medications Administered in Office Medication Date Status Form Strength Qnty SIG Indications Ordering Provider Inj, Administered Injection Mitch Hassan, Josh Cuba M.D. 0.1 MG Technetium TC Administered Injection Mitch Serna 99M 014 Elliott Cuba Tetrofosmin, Per Unit Dose Up To 40 Millicuries Immunizations CPT Code Status Date Vaccine Lot # [id number] Given 08/11/2016 Pneumonia Vaccine 23888 Given 08/11/2016 Influenza Virus 3Yrs & Over 03761 Given 12/06/2015 Influenza Virus 3Yrs & Over 72335 Given 08/21/2008 Pneumonia Vaccine 75838 Given 08/21/2008 Pneumonia Vaccine 1161x Vital Signs Date Vital Result Comment 07/05/2018 Height 64 inches 5'4" Weight 140.00 lb Heart Rate 68 /min BP Systolic Sitting 110 mmHg Lue regular cuff BP Diastolic Sitting 60 mmHg Lue regular cuff Respiratory Rate 16 /min O2 % BldC Oximetry 97 % BMI (Body Mass Index) 24.0 kg/m2 01/26/2018 Height 64 inches 5'4" Weight 136.00 lb Heart Rate 60 /min BP Systolic Sitting 110 mmHg BP Diastolic Sitting 70 mmHg Respiratory Rate 14 /min O2 % BldC Oximetry 98 % BMI (Body Mass Index) 23.3 kg/m2 05/28/2017 Height 64 inches 5'4" Weight 137.00 lb w/ shoes Heart Rate 56 /min reg BP Systolic Sitting 130 mmHg Lue, reg cuff BP Diastolic Sitting 80 mmHg Lue, reg cuff Respiratory Rate 16 /min BMI (Body Mass Index) 23.5 kg/m2 02/19/2017 Height 64 inches 5'4" Weight 132.00 lb Heart Rate 78 /min BP Systolic Sitting 112 mmHg BP Diastolic Sitting 76 mmHg Respiratory Rate 16 /min O2 % BldC Oximetry 97 % room air BMI (Body Mass Index) 22.7 kg/m2 02/20/2016 Height 64 inches 5'4" Heart Rate 61 /min BP Systolic Sitting 132 mmHg BP Diastolic Sitting 74 mmHg Respiratory Rate 16 /min O2 % BldC Oximetry 96 % 01/17/2016 Height 64 inches 5'4" Weight 150.38 lb Heart Rate 68 /min BP Systolic 128 mmHg BP Diastolic 76 mmHg Respiratory Rate 14 /min O2 % BldC Oximetry 98 % BMI (Body Mass Index) 25.8 kg/m2 12/06/2015 Height 64 inches 5'4" Weight 150.38 lb Heart Rate 70 /min BP Systolic 130 mmHg BP Diastolic 78 mmHg Respiratory Rate 14 /min O2 % BldC Oximetry 96 % BMI (Body Mass Index) 25.8 kg/m2 Neck Circumference in inches 15.5 01/15/2015 Height 64 inches 5'4" Weight 148.00 lb Pain Level 5 BMI (Body Mass Index) 25.4 kg/m2 01/05/2014 Height 64 inches 5'4" Weight 148.00 lb Heart Rate 76 /min BP Systolic 119 mmHg BP Diastolic 71 mmHg BMI (Body Mass Index) 25.4 kg/m2 12/29/2013 Height 65.25 inches 5'5.25" Weight 145.00 lb Heart Rate 64 /min BP Systolic Sitting 140 mmHg LA reg cuff BP Diastolic Sitting 80 mmHg LA reg cuff BP Systolic Standing 138 mmHg LA BP Diastolic Standing 90 mmHg LA Respiratory Rate 16 /min BMI (Body Mass Index) 23.9 kg/m2 11/24/2013 Height 65.25 inches 5'5.25" Weight 143.00 lb no shoes Heart Rate 88 /min BP Systolic 116 mmHg Ra, reg cuff BP Diastolic 78 mmHg Ra, reg cuff BP Systolic Sitting 116 mmHg LA, reg cuff BP Diastolic Sitting 86 mmHg LA, reg cuff BP Systolic Standing 116 mmHg LA BP Diastolic Standing 84 mmHg LA Respiratory Rate 16 /min BMI (Body Mass Index) 23.6 kg/m2 09/26/2009 Weight 154.75 lb Heart Rate 48 /min BP Systolic Sitting 114 mmHg BP Diastolic Sitting 70 mmHg Respiratory Rate 16 /min Body Temperature 98.1 F 08/15/2009 Weight 157.00 lb Heart Rate 64 /min BP Systolic Sitting 130 mmHg BP Diastolic Sitting 88 mmHg Respiratory Rate 16 /min 05/17/2009 Height 66 inches 5'6" Weight 152.00 lb Heart Rate 60 /min BP Systolic Sitting 126 mmHg BP Diastolic Sitting 78 mmHg BMI (Body Mass Index) 24.5 kg/m2 02/12/2009 Height 66 inches 5'6" Weight 153.00 lb Heart Rate 64 /min BP Systolic Sitting 142 mmHg BP Diastolic Sitting 68 mmHg BMI (Body Mass Index) 24.7 kg/m2 01/10/2009 Height 66 inches 5'6" Weight 157.00 lb BMI (Body Mass Index) 25.3 kg/m2 01/10/2009 Weight 153.00 lb Heart Rate 60 /min BP Systolic Sitting 126 mmHg BP Diastolic Sitting 72 mmHg 12/13/2008 Height 66 inches 5'6" Weight 157.00 lb Heart Rate 64 /min BP Systolic Sitting 130 mmHg BP Diastolic Sitting 74 mmHg BMI (Body Mass Index) 25.3 kg/m2 11/01/2008 Height 66 inches 5'6" Weight 151.00 lb Heart Rate 68 /min BP Systolic Sitting 108 mmHg BP Diastolic Sitting 70 mmHg BMI (Body Mass Index) 24.4 kg/m2 09/21/2008 Height 66 inches 5'6" Weight 147.00 lb Heart Rate 82 /min BP Systolic Sitting 120 mmHg BP Diastolic Sitting 78 mmHg BMI (Body Mass Index) 23.7 kg/m2 08/21/2008 Height 66 inches 5'6" Weight 150.00 lb Heart Rate 88 /min BP Systolic Sitting 124 mmHg BP Diastolic Sitting 76 mmHg Body Temperature 97.5 F BMI (Body Mass Index) 24.2 kg/m2 08/14/2008 Height 66 inches 5'6" Weight 150.00 lb Heart Rate 72 /min BP Systolic Sitting 130 mmHg BP Diastolic Sitting 78 mmHg Body Temperature 98.2 F O2 % BldC Oximetry 94 % BMI (Body Mass Index) 24.2 kg/m2 Results Test Date Test Result H/L Range Note Laboratory test 09/09/2016 Troponin-I (TnI) 0.00 ng/mL <0.04 1 finding Leukemia/Lymphoma Flow 02/13/2016 Path Interpretation 2-8 TNP Marker Path Interpret > 16 Marker TNP Path Interpret 9-15 Marker (SEE NOTE) 2 Laboratory test finding 02/13/2016 Cytology Non-Sr. Strategic Sourcing Manager SEE RESULT BELOW 3 Neutrophil Cytoplasmic AB 01/17/2016 C-Anca Negative Negative P-Anca Negative Negative 4 Laboratory test finding 01/17/2016 Anti Nuclear Antibody 0.2 U 5 Angiotensin Converting Enzyme 55 U/L 8 - 53 6 Immunoglobulins Serum Quant 01/17/2016 Immunoglobulin G 1110 mg/dL 767 - 1590 7 Immunoglobulin M 73 mg/dL 37 - 286 Immunoglobulin A 201 mg/dL 61 - 356 Surgical Pathology 06/11/2009 Surgical Pathology <SEE 8 NOTE> Laboratory test 06/06/2009 Troponin-I (TnI) 0.01 NG/ML 9 finding CMP Panel Stat 06/05/2009 Sodium 141 mmol/L 135-145 Potassium 3.3 mmol/L Low 3.5-5.0 Chloride 104 mmol/L 101-111 Co2 (Carbon Dioxide) 27.0 mmol/L 22-32 Anion Gap 10.0 mmol/L 2-11 10 Glucose 99 mg/dL 70-100 11 BUN 16 mg/dL 6-24 Creatinine 1.10 mg/dL 0.50-1.40 One Over Creatinine 0.90 BUN/Creatinine Ratio 14.5 8-20 Calcium 9.2 mg/dL 8.1-9.9 12 Total Protein 6.9 GM/DL 6.2-8.1 Albumin 3.7 GM/DL 3.2-5.2 Globulin 3.2 GM/DL 2-4 Albumin/Globulin Ratio 1.2 1-3 Bilirubin Total 0.6 mg/dL 0.4-1.5 13 Alkaline Phosphatase 91 U/L 39-117 Alt (SGPT) 18 U/L 17-63 Ast (Sgot) 21 U/L 12-42 eGFR Non- 71.4 > 60 eGFR 86.4 > 60 14 Laboratory test finding 06/05/2009 CPK (Creatine Kinase) 85 U/L 0-200 Troponin-I (TnI) 0.01 NG/ML 15 CBC With Electronic Diff Stat 06/05/2009 White Blood Count 7.7 CUMM 4.8- 10.8 Red Cell Count 4.94 CUMM 4.6-6.2 Hemoglobin 14.8 g/dL 14.0-18.0 Hematocrit 43 % 42-52 Mean Corpuscular Volume 88 um3 80-94 Mean Corpuscular Hemoglob 30 pg 27-31 Mean Corpuscular HGB Cone 34 g/dL 32-36 Redcell Distribution WDTH 13 % 10.5-15 Platelet Count 303 CUMM 150-450 Mean Platelet Volume 7.2 um3 Low 7.4-10.4 Gran % 63.5 % 38-83 Lymph % 16.9 % Low 25-47 Mononuclear % 8.2 % 1-9 Eosinophil % 10.9 % High 0-6 Basophil % 0.5 % 0-2 Abs Lymphs 1.3 1.0-4.8 Abs Mononuclear 0.6 0-0.8 Absolute Neutrophil Count 4.9 1.5-7.7 Abs Eosinophils 0.8 High 0-0.6 Abs Basophils 0 0-0.2 16 Comp Metabolic Panel 05/17/2009 Sodium 139 mmol/L 135-145 Potassium 4.0 mmol/L 3.5-5.0 Chloride 106 mmol/L 101-111 Co2 (Carbon Dioxide) 24.0 mmol/L 22-32 Anion Gap 9.0 mmol/L 2-11 17 Glucose 72 mg/dL 70-100 18 BUN 11 mg/dL 6-24 Creatinine 1.00 mg/dL 0.50-1.40 One Over Creatinine 1.00 BUN/Creatinine Ratio 11.0 8-20 Calcium 9.4 mg/dL 8.1-9.9 19 Total Protein 6.8 GM/DL 6.2-8.1 Albumin 3.8 GM/DL 3.2-5.2 Globulin 3.0 GM/DL 2-4 Albumin/Globulin Ratio 1.3 1-3 Bilirubin Total 0.6 mg/dL 0.4-1.5 20 Alkaline Phosphatase 86 U/L 39-117 Alt (SGPT) 18 U/L 17-63 Ast (Sgot) 20 U/L 12-42 eGFR Non- 79.7 > 60 eGFR 96.4 > 60 21 Laboratory test finding 05/17/2009 PSA Screening 0.55 NG/ML 0-4 22 Lipid Profile (Trig/Chol/HDL) 05/17/2009 Triglyceride 192 mg/dL 40-200 Cholesterol 204 mg/dL High Less Than 200 23 High Density Lipoprotein 33 mg/dL Low 40-60 24 Cholesterol/HDL Ratio 6.18 AVERAGE High 1-4.97 Low Density Lipoprotein 133 mg/dL High Less Than 100 25 CBC With Electronic Diff Stat 11/07/2008 White Blood Count 6.8 CUMM 4.8- 10.8 Red Cell Count 5.02 CUMM 4.6-6.2 Hemoglobin 14.8 g/dL 14.0-18.0 Hematocrit 42 % 42-52 Mean Corpuscular Volume 84 um3 80-94 Mean Corpuscular Hemoglob 29 pg 27-31 Mean Corpuscular HGB Cone 35 g/dL 32-36 Redcell Distribution WDTH 15 % 10.5-15 Platelet Count 324 CUMM 150-450 Mean Platelet Volume 7.2 um3 Low 7.4-10.4 Gran % 68.2 % 38-83 Lymph % 17.8 % Low 25-47 Mononuclear % 6.2 % 1-9 Eosinophil % 7.5 % High 0-6 Basophil % 0.3 % 0-2 Abs Lymphs 1.2 1.0-4.8 Abs Mononuclear 0.4 0-0.8 Absolute Neutrophil Count 4.7 1.5-7.7 Abs Eosinophils 0.5 0-0.6 Abs Basophils 0 0-0.2 26 P33S 11/07/2008 Sodium 138 mmol/L 135-145 Potassium 4.1 mmol/L 3.5-5.0 Chloride 106 mmol/L 101-111 Co2 (Carbon Dioxide) 26.0 mmol/L 22-32 Anion Gap 6.0 mmol/L 2-11 27 Glucose 109 mg/dL High 70-100 28 BUN 16 mg/dL 6-24 Creatinine 1.10 mg/dL 0.50-1.40 One Over Creatinine 0.90 BUN/Creatinine Ratio 14.5 8-20 Calcium 9.4 mg/dL 8.1-9.9 29 Total Protein 6.9 GM/DL 6.2-8.1 Albumin 3.6 GM/DL 3.2-5.2 Globulin 3.3 GM/DL 2-4 Albumin/Globulin Ratio 1.1 1-3 Bilirubin Total 0.6 mg/dL 0.4-1.5 Alkaline Phosphatase 78 U/L 39-117 Alt (SGPT) 20 U/L 17-63 Ast (Sgot) 20 U/L 12-42 Urinalysis W/Microscopic Stat 11/07/2008 Ua Color YELLOW Appearance-Urine CLOUDY Specific Hooker-Ur 1.022 1.010-1.030 Esterase-Urine NEGATIVE Negative Nitrite NEGATIVE Negative Bhnqpfmolbra-Jq-QHB NEGATIVE Negative Protein-Urine NEGATIVE Negative PH-Urine 5.0 5-9 Blood-Urine TRACE Negative Ketones-Urine NEGATIVE Negative Bilirubin-Ur NEGATIVE Negative Glucose-Urine NEGATIVE Negative WBC-Urine 0-2 0-5 RBC-Urine FEW 0-2 Epith Cells-Ur RARE Bacteria-Urine TRACE Laboratory test finding 11/07/2008 Troponin-I (TnI) 0.01 NG/ML 0-0.06 30 Basic Metabolic Panel 08/21/2008 Sodium 136 mmol/L 135-145 Potassium 4.5 mmol/L 3.5-5.0 Chloride 105 mmol/L 101-111 Co2 (Carbon Dioxide) 23.0 mmol/L 22-32 Anion Gap 8.0 mmol/L 2-11 31 Glucose 94 mg/dL 70-100 32 BUN 12 mg/dL 6-24 Creatinine 0.70 mg/dL 0.50-1.40 One Over Creatinine 1.40 BUN/Creatinine Ratio 17.1 8-20 Calcium 9.2 mg/dL 8.1-9.9 33 Comp Metabolic Panel 08/14/2008 Sodium 136 mmol/L 135-145 Potassium 3.2 mmol/L Low 3.5-5.0 Chloride 100 mmol/L Low 101-111 Co2 (Carbon Dioxide) 29.0 mmol/L 22-32 Anion Gap 7.0 mmol/L 2-11 34 Glucose 102 mg/dL High 70-100 35 BUN 6 mg/dL 6-24 Creatinine 1.00 mg/dL 0.50-1.40 One Over Creatinine 1.00 BUN/Creatinine Ratio 6.0 Low 8-20 Calcium 8.2 mg/dL 8.1-9.9 36 Total Protein 5.7 GM/DL Low 6.2-8.1 Albumin 2.8 GM/DL Low 3.2-5.2 Globulin 2.9 GM/DL 2-4 Albumin/Globulin Ratio 1.0 1-3 Bilirubin Total 0.5 mg/dL 0.4-1.5 Alkaline Phosphatase 117 U/L 39-117 Alt (SGPT) 38 U/L 17-63 Ast (Sgot) 38 U/L 12-42 CBC With Manual Diff 08/14/2008 White Blood Count 8.7 CUMM 4.8-10.8 Red Cell Count 4.91 CUMM 4.6-6.2 Hemoglobin 14.4 g/dL 14.0-18.0 Hematocrit 42 % 42-52 Mean Corpuscular Volume 86 um3 80-94 Mean Corpuscular Hemoglob 29 pg 27-31 Mean Corpuscular HGB Cone 34 g/dL 32-36 Redcell Distribution WDTH 13 % 10.5-15 Platelet Count 649 CUMM High 150-450 Mean Platelet Volume 7.0 um3 Low 7.4-10.4 Polysegmented Neutrophil 70 % 38-83 Band Neutrophil 3 % 0-8 Lymphocyte 12 % Low 25-47 Monocyte 8 % 0-13 Eosenophil 7 % High 0-6 Absolute Neutrophil Count 6.3 RBC Morphology NORMAL Platelet Evaluation INCREASED 1 99th percentile=0.04 ng/mL Troponin results at [facility] and [facility] are not interchangeable. 2 FINAL DIAGNOSIS: Specimen Source: Lymph node, L4 bronchial ([id number]) Flow cytometry immunophenotypic analysis: No evidence of an immunophenotypically abnormal cell population. Interpretative data: Lymphocytes: 93% of gated events B-cells: 40% of lymphocytes; kappa:lambda within normal limits T-cells/NK cells: No aberrant population detected. Markers tested: CD3, CD5, CD7, CD10, CD20, CD19, CD23, CD45, kappa surface light chains, lambda surface light chains, 7-AAD. Quality Assessment: Acceptable Viability: Acceptable Viable lymphocytes (7-AAD): 93% Specimen received within validated guidelines. A Gomes-Giemsa stained slide prepared from the flow cytometry specimen was examined for quality purposes. Electronically signed by: Gela Gusman MD Technical component performed by: [place] [address] Production Support Engineer: Angus Arana II, MD, PhD. 3 SEE RESULT BELOW Name: MARCIASINDHU Miguel : [address]: Lolita Mata MD Acct: [id number] Unit: [id number] AGE: 70 Location: OR Re02/13/16 SEX: M Status: REG SCC SPEC: [id number] SPEEDY: 02/13/16-1140 [facility] DR: Lolita Mata MD REQ: [id number] RECD: 02/13/16-476 STATUS: ADITYA AGUILERA DR: Angi Millan MD PC _ ORDERED: FN ASP DEEP, FNA Imme St Add, FNA IMMEDIATE S, Leukemia/Lympho FINAL DIAGNOSIS Lymph node, L-4, Endobronchial ultrasound guided fine needle aspiration: --Benign- mixed reactive lymphocytes and background of benign respiratory epithelium. -- No granulomas identified. -- No evidence of metastatic carcinoma identified. Comment: The aspirate smears demonstrate abundant mixed lymphocytes with predominant small mature lymphocyte population with scattered larger lymphocytes and macrophages. Background demonstrates reactive respiratory epithelial cells. Material was submitted for flow cytometric evaluation and demonstrates no evidence of a lymphoproliferative disorder. 1. BRONCHIAL - US GUIDED L4 LYMPH NODE BIOPSY DONE ON OR. CLINICAL HISTORY Pulmonary nodules, mediastinal and hilar lymphadenopathy. IMMEDIATE INTERPRETATION Pass 1-inadequate, pass 2-adequate, pass 3-6 for additional material GROSS DESCRIPTION Endobronchial Ultrasound guided (EBUS) x 6 passes with 5 Alcohol fixed slide( s) Specimen sent to [facility] for Flow cytometry [place], [place] on 02/13/16 by [id number] at 1502. CONTINUED ON NEXT PAGE * ML=Testing performed at Main Lab DEPARTMENT OF PATHOLOGY, [address] [place] [address] Mesfin Feng M.D. Director [facility] # [id number] RUN DATE: 02/19/16 [facility] LAB LIVE PAGE 2 Patient: SINDHU ZUÑIGA [id number] (Continued) SPECIAL STUDIES (Continued) SPECIAL STUDIES Flow has been performed at [facility], [place], [place]. The testing reveals: FINAL DIAGNOSIS: Specimen Source: Lymph node, L4 bronchial ([id number]) Flow cytometry immunophenotypic analysis: No evidence of an immunophenotypically abnormal cell population. Interpretative data: Lymphocytes: 93% of gated events B-cells: 40% of lymphocytes; kappa:lambda within normal limits T-cells/NK cells: No aberrant population detected. Markers tested: CD3, CD5, CD7, CD10, CD20, CD19, CD23, CD45, kappa surface light chains, lambda surface light chains, 7-AAD. Quality Assessment: Acceptable Viability: Acceptable Viable lymphocytes (7-AAD): 93% Specimen received within validated guidelines. A Gomes-Giemsa stained slide prepared from the flow cytometry specimen was examined for quality purposes. Electronically signed by: Gela Gusman MD Technical component performed by: [place] [address] Production Support Engineer: Angus Arana II, MD, PhD. Signed (signature on file) Mesfin Feng MD 1316 END OF REPORT * ML=Testing performed at Main Lab DEPARTMENT OF PATHOLOGY, [address] [place] [address] Mesfin Feng M.D. Director [facility] # [id number] 4 Negative for cANCA and pANCA patterns by immunofluorescence. Test Performed by: [place] [id number] Production Support Engineer: Angus Arana II, M.D., Ph.D. 5 REFERENCE VALUE <=1.0 (Negative) Test Performed by: [place] [address] Production Support Engineer: Angus Arana II, M.D., Ph.D. 6 The sample is slightly hemolyzed. This may reduce CHUN values by as much as 10%. Test Performed by: [place] [address] Production Support Engineer: Angus Arana II, M.D., Ph.D. 7 Test Performed by: [place] [address] Production Support Engineer: Angus Arana II, M.D., Ph.D. 8 --- RUN DATE: 06/12/09 [facility] NMI LIVE PAGE 1 RUN TIME: 1553 Specimen Inquiry RUN USER: INTERFACE -- Name: SINDHU ZUÑIGA Accmiguel#: [id number] Status: REG REF Re06/11/09 Age/Sex: 64/M Unit#: [id number] Location: [facility] : 43 -- Specimen: [id number] ADITYA Spec Date: 06/11/[address]: Martin tobias MD Spec Type: SURGICAL P Received: 06/11/099783 Copies to: Rosalia daigle MD SPECIMEN 1) BIOPSY COLON POLYP AT 50 CM. 2) BIOPSY COLON POLYP AT 15 CM. HISTORY CLINICAL INFORMATION: Screening colonoscopy GROSS DESCRIPTION 1) The specimen is received in formalin labelled Sindhu Zuñiga, Biopsy Colon Polyp at 50 cm., and consists of a oleary, soft tissue fragment measuring 0.5 x 0.2 x 0.2 cm. Submitted entirely, one cassette. 2) The specimen is received in formalin labelled Sindhu Zuñiga, Biopsy Colon Polyp at 15 cm., and consists of two, oleary, soft tissue fragments measuring 0.8 x 0.4 x 0.2 cm. Submitted entirely, one cassette. DIAGNOSIS 1) Colon, 50 cm., biopsy: A. Tubular adenoma. B. No high grade dysplasia or malignancy. 2) Colon, 15 cm., biopsy: A. Tubular adenoma. B. No high grade dysplasia or malignancy. Signed Electronically by: MESFIN FENG MD 06/12/09 1552 -- -- DEPARTMENT OF PATHOLOGY, [address] [place] [address] [facility] Permit #[id number] Mesfin Feng M.D. Director Alanna Greco M.D. Sawmill Tally Clerk Dir lomelior -- 9 New Reference Range and Interpretation effective 06/03/2002 TnI (ng/ml) INTERPRETATION Less Than 0.06 ng/mL NOT SUPPORTIVE OF DIAGNOSIS OF [place] 0.06 - 0.50 ng/ml INDETERMINATE: SUGGEST SERIAL STUDIES IF CLINICALLY INDICATED. Greater than 0.5 ng/mL CONSISTENT WITH DIAGNOSIS OF [place] . 10 Anion gap measurement may be of limited value in the presence of any alkalosis, especially in a combined acid base disorder. . 11 Note change in reference range as of 04/20/08. The change was based on recommendations from the Citizen Of [place] Diabetes Association. 12 Please note change in reference range effective 08 . 13 A metabolite of Naproxen, O-desmethylnaproxen, has been shown to interfere with the Jendrassik-Osvaldo method for measuring total bilirubin. Samples from patients who have taken Naproxen have shown spurious elevation in total bilirubin levels. 14 Because ethnic data is not always readily available, this report includes an eGFR for both -Americans and non- Americans. The National Kidney Disease Education Program (NKDEP) does not endorse the use of the MDRD equation for patients that are not between the ages of 18 and 70, are , have extremes of body size, muscle mass, or nutritional status, or are non- or non-. According to the National Kidney Foundation, irrespective of diagnosis, the stage of the disease is based on the level of kidney function: Stage Description GFR(mL/min/1.73 m(2)) 1 Kidney damage with normal or decreased GFR 90 2 Kidney damage with mild decrease in GFR 60-89 3 Moderate decrease in GFR 30-59 4 Severe decrease in GFR 15-29 5 Kidney failure <15 (or dialysis) 15 New Reference Range and Interpretation effective 06/03/2002 TnI (ng/ml) INTERPRETATION Less Than 0.06 ng/mL NOT SUPPORTIVE OF DIAGNOSIS OF [place] 0.06 - 0.50 ng/ml INDETERMINATE: SUGGEST SERIAL STUDIES IF CLINICALLY INDICATED. Greater than 0.5 ng/mL CONSISTENT WITH DIAGNOSIS OF [place] . 16 Lymphopenia % 17 Anion gap measurement may be of limited value in the presence of any alkalosis, especially in a combined acid base disorder. . 18 Note change in reference range as of 04/20/08. The change was based on recommendations from the Citizen Of [place] Diabetes Association. 19 Please note change in reference range effective 08 . 20 A metabolite of Naproxen, O-desmethylnaproxen, has been shown to interfere with the Jendrassik-Osvaldo method for measuring total bilirubin. Samples from patients who have taken Naproxen have shown spurious elevation in total bilirubin levels. 21 Because ethnic data is not always readily available, this report includes an eGFR for both -Americans and non- Americans. The National Kidney Disease Education Program (NKDEP) does not endorse the use of the MDRD equation for patients that are not between the ages of 18 and 70, are , have extremes of body size, muscle mass, or nutritional status, or are non- or non-. According to the National Kidney Foundation, irrespective of diagnosis, the stage of the disease is based on the level of kidney function: Stage Description GFR(mL/min/1.73 m(2)) 1 Kidney damage with normal or decreased GFR 90 2 Kidney damage with mild decrease in GFR 60-89 3 Moderate decrease in GFR 30-59 4 Severe decrease in GFR 15-29 5 Kidney failure <15 (or dialysis) 22 * SERUM LEVELS OF PSA MEASURED USING THE RENZO [employer] ACCESS HYBRITECH IMMUNOASSAY SHOULD NOT BE INTERPRETED ABSOLUTE EVIDENCE OF THE PRESENCE OR ABSENCE OF DISEASE. THE PSA VALUE SHOULD BE USED IN CONJUNCTION WITH OTHER PERTINENT CLINICAL DIAGNOSTIC PROCEDURES. A PSA value in the range of 0.1 to 0.6 ng/ml is indeterminate if being used as an indicator of recurrent or residual disease. . 23 CHOLESTEROL INTERPRETATION: Desirable: Less than 200 MG/DL Borderline-High Risk: 200-239 MG/DL High-Risk: 240 MG/DL and over 24 HDL INTERPRETATION: Undesirable: High Risk: Less than 40 MG/DL Desirable: Low Risk: Greater than 60 MG/DL 25 LDL INTERPRETATION: Low Risk Optimal Level: LDL Less than 100 MG/DL Near or Above Optimal: LDL 100-129 MG/DL Borderline High Risk: LDL 130-159 MG/DL High Risk: LDL 160-189 MG/DL Very High Risk: LDL Greater than 189 MG/DL 26 Lymphopenia % 27 Anion gap measurement may be of limited value in the presence of any alkalosis, especially in a combined acid base disorder. . 28 Note change in reference range as of 04/20/08. The change was based on recommendations from the [employer] Of [place] [employer]. 29 Please note change in reference range effective 08 . 30 New Reference Range and Interpretation effective 06/03/02 TnI (ng/ml) INTERPRETATION <0.06 ng/ml NOT SUPPORTIVE OF DIAGNOSIS OF [place] 0.06 - 0.50 ng/ml INDETERMINATE: SUGGEST SERIAL STUDIES IF CLINICALLY INDICATED. > 0.5 ng/ml CONSISTENT WITH DIAGNOSIS OF [place] . 31 Anion gap measurement may be of limited value in the presence of any alkalosis, especially in a combined acid base disorder. . 32 Note change in reference range as of 04/20/08. The change was based on recommendations from the Citizen Of [place] [employer]. 33 Please note change in reference range effective 08 . 34 Anion gap measurement may be of limited value in the presence of any alkalosis, especially in a combined acid base disorder. . 35 Note change in reference range as of 04/20/08. The change was based on recommendations from the Citizen Of [place] [employer]. 36 Please note change in reference range effective 08 . Procedures Date CPT Code Description Status 09/10/2016 27972 Treadmill Interp/Report Only Completed 09/10/2016 99030 Stress Test Supervsn W/Out I/R Completed 02/13/2016 89464 With Endobronchial Ultrasound Guided Completed 02/13/2016 24515 Bronchoscopy W/Transbronchial Needle Aspiration Biopsy Completed 06/08/2015 92590 EKG, Interpretation Only Completed 06/08/2015 62050 Laparoscopy Cholecystectomy Completed 12/07/2013 86038 Stress Test Completed 12/07/2013 95918 Myocardial Perfusion Imaging Tomographic (Spect) Completed Multiple Studies 11/24/2013 32526 EKG Tracing & Interpretation Completed 11/12/2013 60463 EKG, Interpretation Only Completed 10/31/2013 71774 EKG, Interpretation Only Completed 06/11/2009 Colonoscopy Completed Encounters Type Date Location Provider CPT E/M Dx Office Visit 07/05/2018 [facility] [place] [address] J98.4 11:45a [facility] [employer] R59.0 Office Visit 01/26/2018 9:15a [facility] [place] [address] J98.4 [facility] [employer] R59.0 Office Visit 05/28/2017 9:30a [facility] [place] [address] J98.4 [facility] [employer] R59.0 Office Visit 02/19/2017 10:00a [facility] [place] [address] J98.4 [facility] [employer] R59.0 R79.89 Office Visit 09/10/2016 12:25p [facility], Jamarcus Hernandez, 89970 R07.2 Hospitalists Elliott K02.9 Office Visit 09/09/2016 12:24p [facility], Jamarcus Hernandez, 25850 R07.2 Hospitalists Elliott K02.9 Office Visit 02/20/2016 10:45a [facility] [place] [address] J98.4 [facility] [employer] Office Visit 01/17/2016 10:00a [facility] [place] [address] J98.4 [facility] [employer] Office Visit 12/06/2015 2:45p [facility] [place] [address] J98.4 [facility] Z23 Office Visit 11/20/2015 3:03p [facility], [place] [address] J06.9 Hospitalists R19.7 Office Visit 11/19/2015 3:02p [facility], Freddy Toussaint 78687 J06.9 Hospitalists N.P. R19.7 Office Visit 01/15/2015 9:45a [facility] Lius Lang M.D. 56945 726.10 C.M.A. 840.4 Office Visit 01/03/2015 8:53a [facility], Summer Coronel, 55771 483.0 Hospitalists N.P. 038.9 Office Visit 01/02/2015 8:[place] [address] 483.0 Assoc, Hospitalists M.Kareem 038.9 Office Visit 01/05/2014 10:00a [facility] Greg SuzanYuridia 18277 726.10 Of Marcell Vargas 354.2 Office Visit 12/29/2013 10:30a [facility], 43609 794.31 [employer] M.DYuridia 786.50 Office Visit 11/24/2013 2:30p [facility], 68772 786.50 [employer] M.DYuridia 794.31 Office Visit 11/14/2013 2:50p [facility] Gurpreet Jensen M.D. 93149 481 Hospitalists 786.05 Office Visit 11/13/2013 2:50p [facility], Gurpreet Jensen M.D. 41715 481 Hospitalists 786.05 Office Visit 11/12/2013 2:50p [facility], Gurpreet Jensen M.D. 81836 481 Hospitalists 786.05 Office Visit 11/11/2013 2:49p [facility], Gurpreet Jensen M.D. 09768 481 Hospitalists 786.05 Office Visit 11/10/2013 2:49p [facility] 43746 481 Hospitalists 786.05 Office Visit 11/09/2013 2:47p [facility], Gurpreet Jensen M.D. 54414 481 Hospitalists 786.05 Office Visit 09/26/2009 10:20a DO Not Use [employer] AT [facility], 34556 729.5 [place] M.D. 053.9 272.4 Office Visit 08/15/2009 11:20a DO Not Use [employer] AT [facility], 70434 729.5 [place] M.D. 053.9 Office Visit 05/17/2009 9:00a DO Not Use [employer] AT [facility], 66721 V70.0 [place] M.D. V76.51 V77.91 V76.44 Office Visit 02/12/2009 9:40a DO Not Use [employer] AT Rosalia Waddell, 90499 729.5 [place] M.D. 354.0 796.2 Office Visit 01/10/2009 10:40a DO Not Use [employer] AT [place] Waddell 57489 729.5 [place] M.D. 354.0 Office Visit 12/13/2008 10:00a DO Not Use [employer] AT Ros[place] Waddell, 94529 729.5 [place] M.D. Office Visit 11/01/2008 2:40p DO Not Use [employer] AT Ros[place] Waddell 86924 719.41 [place] M.D. 724.2 Office Visit 09/21/2008 2:00p DO Not Use [employer] AT Ros[place] Waddell 92661 719.41 [place] M.D. 724.2 Office Visit 08/21/2008 1:30p DO Not Use [employer] AT Rosalia Waddell M.D. 71614 486 [place] 780.79 550.90 276.8 V03.82 Office Visit 08/14/2008 3:00p DO Not Use [employer] AT Rosalia Waddell M.D. 97086 486 [place] 786.05 780.79 Plan of Care Future Appointment(s):01/03/2019 10:45 am - Lolita Mata MD at [facility]07/05/2018 - Lolita Mata MDJ98.4 Other disorders of lungFollow up:6 months , Ct chest cmrgoC71.0 Localized enlarged lymph nodes
[2018-08-01] MEDS ORDERED: Meclizine TAB* 12.5 MG PO ONE (15:44)
[2018-08-01] MEDS ORDERED: NS 0.9% 1000 ML* 1,000 ML IV ONE (15:44)
--- NOTE | 2018-08-01 15:53 | ED ---
Dizziness - HPI Summary HPI Summary: Pt is a 73 y/o M presenting to the ED with a chief complaint of dizziness onset about 3 days ago described as the room spinning. When he stands and moves, his head and shoulders hurt. The pt denies nausea, vomiting, chest pain, shortness of breath. The pt states hes had this before, and the last time was around this time last year. - History Of Current Complaint Chief Complaint: EDDizziness Stated Complaint: DIZZINESS Time Seen by Provider: 08/01/18 15:34 Hx Obtained From: Patient Onset/Duration: Gradually Timing: Constant Severity Initially: Moderate Severity Currently: Mild Character: Room Spinning, Dizzy Aggravating Factor(s): Exertion, Supine To Erect Alleviating Factor(s): Nothing Associated Signs And Symptoms: Negative: Nausea, Vomiting, Chest Pain, SOB - Allergies/Home Medications Allergies/Adverse Reactions: Allergies Allergy/AdvReac Type Severity Reaction Status Date / Time bee venom protein (honey bee) Allergy Swelling Verified 08/01/18 12:57 Of Face,Lips,& Throat celecoxib [From Celebrex] Allergy Rash Verified 08/01/18 12:57 PMH/Surg Hx/FS Hx/Imm Hx Previously Healthy: No Endocrine/Hematology History: Reports: Hx Anticoagulant Therapy - 81 mg aspirin daily for the "last couple of days." Denies: Hx Diabetes, Hx Thyroid Disease Cardiovascular History: Reports: Hx Angina Denies: Hx Congestive Heart Failure, Hx Deep Vein Thrombosis, Hx Hypercholesterolemia, Hx Hypertension, Hx Myocardial Infarction, Hx Pacemaker/ ICD Respiratory History: Reports: Hx Pleural Effusion, Hx Pneumonia - "many times", Other Respiratory Problems/Disorders - pl eff Denies: Hx Asthma, Hx Chronic Obstructive Pulmonary Disease (COPD), Hx Lung Cancer, Hx Pulmonary Embolism, Hx Sleep Apnea - pt denies GI History: Reports: Hx Gall Bladder Disease - removed, Hx Hiatal Hernia, Other GI Disorders - chronic diarrhea Denies: Hx Gastrointestinal Bleed, Hx Ulcer, Hx Urosepsis History: Reports: Hx Kidney Stones Denies: Hx Dialysis, Hx Renal Disease Musculoskeletal History: Reports: Other Musculoskeletal History - HX OF PAIN IN R NECK, BILATERAL SHOULDERS, right upper chest Sensory History: Reports: Hx Cataracts - 2013, Hx Hearing Aid - (LEFT) DOES NOT WEAR IT, Hx Hearing Problem Denies: Hx Contacts or Glasses Opthamlomology History: Reports: Hx Cataracts - 2013 Denies: Hx Contacts or Glasses Neurological History: Reports: Other Neuro Impairments/Disorders - chronic vertigo Denies: Hx Dementia, Hx Migraine, Hx Seizures, Hx Transient Ischemic Attacks (TIA) Psychiatric History: Denies: Hx Anxiety, Hx Depression, Hx Panic Disorder, Hx Schizophrenia, Hx Bipolar Disorder - Surgical History Surgery Procedure, Year, and Place: Right Inguinal hernia 2013 (?). [place] [facility] [place]EE [place]PA[place] CAST. Cholecystectomy 06/14 Hx Anesthesia Reactions: No - Immunization History Date of Tetanus Vaccine: Up to date Date of Influenza Vaccine: 2014 Infectious Disease History: No Infectious Disease History: Reports: Hx Shingles - hx Denies: Hx Clostridium Difficile, Hx Hepatitis, Hx Human Immunodeficiency Virus (HIV), Hx of Known/Suspected MRSA, Hx Tuberculosis, Hx Known/Suspected VRE , Hx Known/Suspected VRSA, History Other Infectious Disease, Traveled Outside the [place] in Last 30 Days - Family History Known Family History: Positive: Cardiac Disease, Hypertension, Diabetes - Social History Alcohol Use: Occasionally Alcohol Amount: 3 drinks per month Hx Substance Use: No Substance Use Type: Reports: None Hx Tobacco Use: No Smoking Status (MU): Never Smoked Tobacco Have You Smoked in the Last Year: No Review of Systems Negative: Fever Negative: Chest Pain Negative: Shortness Of Breath Negative: Vomiting, Nausea All Other Systems Reviewed And Are Negative: Yes Physical Exam - Summary Physical Exam Summary: VITAL SIGNS: Reviewed. GENERAL: Patient is a well-developed and nourished male who is lying comfortable in the stretcher. Patient is not in any acute respiratory distress. HEAD AND FACE: No signs of trauma. No ecchymosis, hematomas or skull depressions. No sinus tenderness. EYES: PERRLA, EOMI x 2, No injected conjunctiva, no nystagmus. EARS: Hearing grossly intact. Ear canals and tympanic membranes are within normal limits. MOUTH: Oropharynx within normal limits. NECK: Supple, trachea is midline, no adenopathy, no JVD, no carotid bruit, no c- spine tenderness, neck with full ROM. CHEST: Symmetric, no tenderness at palpation LUNGS: Clear to auscultation bilaterally. No wheezing or crackles. CVS: Regular rate and rhythm, S1 and S2 present, no murmurs or gallops appreciated. ABDOMEN: Soft, non-tender. No signs of distention. No rebound no guarding, and no masses palpated. Bowel sounds are normal. EXTREMITIES: FROM in all major joints, no edema, no cyanosis or clubbing. NEURO: Alert and oriented x 3. No acute neurological deficits. Speech is normal and follows commands. SKIN: Dry and warm Triage Information Reviewed: Yes Vital Signs On Initial Exam: Initial Vitals Temp Pulse Resp BP Pulse Ox 98.3 F 75 16 133/80 100 08/01/18 12:57 08/01/18 12:57 08/01/18 12:57 08/01/18 12:57 08/01/18 12:57 Vital Signs Reviewed: Yes Diagnostics - Vital Signs Vital Signs Temp Pulse Resp BP Pulse Ox 08/01/18 15:26 58 15 98 08/01/18 14:29 99.6 F 71 16 120/67 99 08/01/18 12:57 98.3 F 75 16 133/80 100 - Laboratory Result Diagrams: 08/01/18 16:05 08/01/18 16:05 Lab Statement: Any lab studies that have been ordered have been reviewed, and results considered in the medical decision making process. - Radiology CXR Radiology Interpretation Completed By: Radiologist Summary of Radiographic Findings: NO EVIDENCE FOR ACTIVE CARDIOPULMONARY DISEASE. ED physician has reviewed this report. - CT Brain CT CT Interpretation Completed By: Radiologist Summary of CT Findings: 1. NO EVIDENCE FOR ACUTE INTRACRANIAL ABNORMALITY. 2. 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 UNCHANGED. ED physician has reviewed this report. - EKG 1631 Cardiac Rate: Bradycardia - 59bpm EKG Rhythm: Sinus Bradycardia ST Segment: Normal Ectopy: None EKG Comparison: No Significant Change - from 07/29/2017 Dizzy Course/Dx - Course Assessment/Plan: Pt is a 73 y/o M presenting to the ED with a chief complaint of dizziness onset about 3 days ago described as the room spinning. When he stands and moves, his head and shoulders hurt. The pt denies nausea, vomiting, chest pain, shortness of breath. The pt states hes had this before, and the last time was around this time last year. Blood work without any significant abnormality except for potassium level of 3.3 and creatinine 1.33. Glucose 108 , visual 1.7. Troponin 0.00. Chest x-ray impression: No acute cuddy pulmonary disease. Head CT impression: No evidence for acute intracranial abnormality. Findings suggestive a small INFARCT in the right parietal and occipital lobes. Unchanged. In the ED course the patient was given meclizine and IV fluids and the symptoms have significantly improved. The patient is ambulating with a good steady walk. Before the patient was discharged in neurological exam is completely normal. The patient has no acute neurological focal deficits. Therefore the patient will be discharged home with follow-up with PCP. - Diagnoses Provider Diagnoses: Vertigo Discharge - Sign-Out/Discharge Documenting (check all that apply): Patient Departure - Discharge Plan Condition: Stable Disposition: HOME Prescriptions: Meclizine TAB* [Antivert 12.5 TAB*] 25 mg PO TID PRN #30 tab PRN Reason: Pain Referrals: Angi Millan MD [Primary Care Provider] - - Billing Disposition and Condition Condition: STABLE Disposition: Home - Attestation Statements Document Initiated by Scribe: Yes Documenting Scribe: Tracee Espitia Provider For Whom Lenny is Documenting (Include Credential): Clif Wren MD. Scribe Attestation: Tracee Ortega scribed for Clif Wren MD. on 08/02/18 at 0746. Scribe Documentation Reviewed: Yes Provider Attestation: The documentation as recorded by the Tracee sotomayor accurately reflects the service I personally performed and the decisions made by Clif gaytan MD. Status of Scribe Document: Viewed
[2018-08-01 16:20] LABS: ABS Basophils 0.1 10^3/ul (0-0.2); ABS Eosinophils 0.4 10^3/ul (0-0.6); ABS Monocytes 0.6 10^3/ul (0-0.8); ABS Neutrophils 5.7 10^3/ul (1.5-7.7); ABS Nucleated RBC 0 10^3/ul; Eosinophil % 4.6 %; Hematocrit 44 % (42-52); Hemoglobin 15.2 g/dl (14.0-18.0); Lymphocyte % 13.4 %; Mean Corpuscular HGB Conc 34 g/dl (31-36); Mean Corpuscular Hemoglobin 30 pg (27-31); Mean Corpuscular Volume 87 fL (80-94); Mean Platelet Volume 7.9 fL (7.4-10.4); Nucleated Red Blood Cells % 0.1; Platelet Count 214 10^3/ul (150-450); Red Blood Count 5.12 10^6/ul (4.00-5.40); Red Cell Distribution Width 13 % (10.5-15); White Blood Count 7.8 10^3/ul (3.5-10.8)
[2018-08-01 16:36] LABS: EGFR Non-African American 52.6 (>60)
[2018-08-01 17:03] VITALS: BP 126/70
== END 2018-08-01 17:20 | disposition home or self-care (01) ==
LOC: ED 12:54
DX: R42 Dizziness and giddiness (principal); R00.1 Bradycardia, unspecified; Z79.82 Long term (current) use of aspirin; Z88.8 Allergy status to other drugs, medicaments and biological substances; Z91.030 Bee allergy status
CPT/HCPCS: 36415; 70450; 71046; 80053; 80320; 82550; 83605; 83735; 83880; 84443; 84484; 85025; 85730; 86140; 93005; 96360; 99283; A9270-GY; G0480

== ENCOUNTER 2018-12-03 08:21 | Emergency (ER) | payer BC, MEDICARE ==
[2018-12-03 08:30] VITALS: BP 131/66
--- NOTE | 2018-12-03 09:46 | UC ---
Respiratory Complaint HPI - HPI Summary HPI Summary: 73 yo male presents with chest congestion and productive cough for the last 4 days. He has been taking robitussin DM OTC with good relief of his cough, but comes back shortly after. He says his has been sick with similar symptoms and she was put on antibiotics. Pt does not smoke. Denies fever, chills, sore throat, SOB, chest pain. - History of Current Complaint Chief Complaint: UCRespiratory Stated Complaint: CHEST CONGESTION Time Seen by Provider: 12/03/18 09:46 Hx Obtained From: Patient Onset/Duration: Gradual Onset Severity Initially: Mild Severity Currently: Mild Pain Intensity: 3 Pain Scale Used: 0-10 Numeric Character: Cough: Productive - Allergies/Home Medications Allergies/Adverse Reactions: Allergies Allergy/AdvReac Type Severity Reaction Status Date / Time bee venom protein (honey bee) Allergy Swelling Verified 12/03/18 08:30 Of Face,Lips,& Throat celecoxib [From Celebrex] Allergy Rash Verified 12/03/18 08:30 PMH/Surg Hx/FS Hx/Imm Hx GI/ History: Gastroesophageal Reflux Other History Of: Anticoagulant Therapy - 81 mg aspirin daily for the "last couple of days." Negative For: HIV, Hepatitis B, Hepatitis C - Surgical History Surgical History: Yes Surgery Procedure, Year, and Place: Right Inguinal hernia 2013 (?). 2012- [facility] [place] S KNEE REPAIR WITH CAST. Cholecystectomy 06/14 - Family History Known Family History: Positive: Cardiac Disease, Hypertension, Diabetes - Social History Occupation: Retired Lives: With Family Alcohol Use: Occasionally Alcohol Amount: 3 drinks per month Substance Use Type: None Smoking Status (MU): Never Smoked Tobacco Have You Smoked in the Last Year: No Household Exposure Type: Cigarettes - Immunization History Most Recent Influenza Vaccination: 2014 Most Recent Tetanus Shot: 2009 Most Recent Pneumonia Vaccination: 2013 Review of Systems All Other Systems Reviewed And Are Negative: Yes Constitutional: Positive: Negative Skin: Positive: Negative Eyes: Positive: Negative ENT: Positive: Negative Respiratory: Positive: Cough Cardiovascular: Positive: Negative Gastrointestinal: Positive: Negative Neurological: Positive: Negative Psychological: Positive: Negative Physical Exam - Summary Physical Exam Summary: GENERAL: NAD. WDWN. No pain distress. SKIN: No rashes, sores, lesions, or open wounds. HEENT: Head: AT/NC Eyes: Conjunctiva clear without inflammation or discharge. Ears: Hearing grossly normal. TMs intact, no bulging, erythema, or edema. Nose: Nasal mucosa pink and moist. NTTP maxillary and frontal sinus. Positive post nasal drip Throat: Posterior oropharynx without exudates, erythema, or tonsillar enlargement. Uvula midline. NECK: Supple. Nontender. No lymphadenopathy. CHEST: Mild wheezing throughout. No r/r. No accessory muscle use. Breathing comfortably and in no distress. CV: RRR. Without m/r/g. Pulses intact. Cap refill <2seconds NEURO: Alert. PSYCH: Age appropriate behavior. Triage Information Reviewed: Yes Vital Signs: Initial Vital Signs Temp 98.1 F 12/03/18 08:26 Pulse 82 12/03/18 08:26 Resp 18 12/03/18 08:26 BP 131/66 12/03/18 08:26 Pulse Ox 98 12/03/18 08:26 Vital Signs Reviewed: Yes Respiratory Course/Dx - Course Course Of Treatment: Suspect bronchitis. Discussed viral vs bacterial causes of his symptoms today and he prefers to be on anbx as his is also sick with similar symptoms and was rx'd an antibiotic. - Differential Dx/Diagnosis Provider Diagnosis: Bronchitis Discharge - Sign-Out/Discharge Documenting (check all that apply): Patient Departure All imaging exams completed and their final reports reviewed: No Studies - Discharge Plan Condition: Stable Disposition: HOME Prescriptions: DOXYcycline CAP(*) [DOXYcycline 100MG CAP(*)] 100 mg PO BID #14 cap Guaifenesin/Dextromethorphan [Tgt Cough Formula Dm Max] 5 ml PO TID PRN #1 bottle PRN Reason: Cough Patient Education Materials: Acute Bronchitis (ED) Referrals: Angi Millan MD [Primary Care Provider] - Additional Instructions: If you develop a fever, shortness of breath, chest pain, new or worsening symptoms - please call your PCP or go to the ED. - Billing Disposition and Condition Condition: STABLE Disposition: Home
== END 2018-12-03 09:59 | disposition home or self-care (01) ==
LOC: UCEAST 08:21
DX: J40 Bronchitis, not specified as acute or chronic (principal); Z88.8 Allergy status to other drugs, medicaments and biological substances; Z91.030 Bee allergy status; Z79.82 Long term (current) use of aspirin
CPT/HCPCS: 99212; G0463

== ENCOUNTER 2019-07-19 21:04 | Emergency (ER) | payer BC, MEDICARE ==
[2019-07-19] MEDS ORDERED: Fluorescein Sodium TOPICAL* 1 MG TEST STRIP OPHTHALMIC ONE (21:07)
[2019-07-19] MEDS ORDERED: Tetracaine 0.5% OPTH.SOL 4 ML* 1 DROP BTL BOTH EYES ONE (21:07)
--- NOTE | 2019-07-19 21:07 | UC ---
Eye Complaint HPI - HPI Summary HPI Summary: 74 yo male presents with ?FB b/l eyes. He tells me that around 1630 this evening he was working under his car and some rust/dirt fell into his eyes. He rinsed his eyes with water. Since that time has felt a FB sensation in both eyes - worse in his left eye. Denies vision changes, drainage, pain. - History of Current Complaint Stated Complaint: dirt in eye Time Seen by Provider: 07/19/19 21:07 Hx Obtained From: Patient Onset/Duration: Sudden Onset Severity Currently: None - Allergies/Home Medications Allergies/Adverse Reactions: Allergies Allergy/AdvReac Type Severity Reaction Status Date / Time bee venom protein (honey bee) Allergy Swelling Verified 07/19/19 21:09 Of Face,Lips,& Throat celecoxib [From Celebrex] Allergy Rash Verified 07/19/19 21:09 PMH/Surg Hx/FS Hx/Imm Hx GI/ History: Gastroesophageal Reflux Other History Of: Anticoagulant Therapy - 81 mg aspirin daily for the "last couple of days." Negative For: HIV, Hepatitis B, Hepatitis C - Surgical History Surgical History: Yes Surgery Procedure, Year, and Place: Right Inguinal hernia 2013 (?). [place] [facility] [place] [place] [facility] [place] KNEE REPAIR WITH CAST. Cholecystectomy 06/14 - Family History Known Family History: Positive: Cardiac Disease, Hypertension, Diabetes - Social History Lives: With Family Alcohol Use: Occasionally Alcohol Amount: 3 drinks per month Substance Use Type: None Smoking Status (MU): Never Smoked Tobacco Have You Smoked in the Last Year: No Household Exposure Type: Cigarettes - Immunization History Most Recent Influenza Vaccination: 2014 Most Recent Tetanus Shot: 2009 Most Recent Pneumonia Vaccination: 2013 Review of Systems All Other Systems Reviewed And Are Negative: No Constitutional: Positive: Negative Skin: Positive: Negative Eyes: Positive: Other - ?Fb in eyes Respiratory: Positive: Negative Cardiovascular: Positive: Negative Neurological: Positive: Negative Psychological: Positive: Negative Physical Exam - Summary Physical Exam Summary: GENERAL: WDWN. No pain distress. SKIN: No rashes, sores, lesions, or open wounds. HEENT: Head: AT/NC Eyes: EOM intact. PERRLA. LEFT EYE: Mild scleral injection. Conjunctiva without erythema or inflammation. Mild clear/yellow discharge. Spec of dirt under upper eyelid - removed with cotton swab. RIGHT EYE: Conjunctiva clear without inflammation or discharge. No FBs appreciated. Fluorescein exam b/ l eyes revealed no increased uptake, kathia sign, or other FB bodies. Nose: NTTP maxillary and frontal sinus. NECK: Supple. Nontender. No lymphadenopathy. CHEST: No accessory muscle use. Breathing comfortably and in no distress. CV: Pulses intact. Cap refill <2seconds NEURO: Alert. PSYCH: Age appropriate behavior. Triage Information Reviewed: Yes Vital Signs: Vital Signs: Temp Pulse Resp BP Pulse Ox 98.2 F 65 16 149/69 99 07/19/19 21:06 07/19/19 21:06 07/19/19 21:06 07/19/19 21:06 07/19/19 21:06 Vital Signs Reviewed: Yes Eye Complaint Course/Dx - Course Course Of Treatment: FB dirt spec removed from left eye. Dye exam WNL. Given dirty exposure will rx for ofloxacin eye drops. - Differential Dx/Diagnosis Provider Diagnosis: FB (foreign body) of eyelid Discharge ED - Sign-Out/Discharge Documenting (check all that apply): Patient Departure All imaging exams completed and their final reports reviewed: No Studies - Discharge Plan Condition: Stable Disposition: HOME Prescriptions: Ofloxacin 0.3% (Eye Drop) [Ocuflox OPTH 0.3% (Eye Drop)] 1 drop BOTH EYES TID 7 Days #1 btl Patient Education Materials: Corneal Abrasion (ED) Referrals: Angi Millan MD [Primary Care Provider] - Jeffery Duran MD [Medical Doctor] - 2 Days Additional Instructions: If you develop a fever, shortness of breath, chest pain, new or worsening symptoms - please call your PCP or go to the ED immediately. Your blood pressure was high at todays visit. Please see your primary provider within 4 weeks for recheck and re-evaluation. - Billing Disposition and Condition Condition: STABLE Disposition: Home
[2019-07-19 21:09] VITALS: BP 149/69
[2019-07-19] MEDS ORDERED: Ciprofloxacin 0.3% OPTH.SOL* BTL BOTH EYES ONE (21:30)
== END 2019-07-19 21:34 | disposition home or self-care (01) ==
LOC: UCEAST 21:04
DX: T15.12XA Foreign body in conjunctival sac, left eye, initial encounter (principal); Z91.030 Bee allergy status; Z88.8 Allergy status to other drugs, medicaments and biological substances; X58.XXXA Exposure to other specified factors, initial encounter; Y92.9 Unspecified place or not applicable
CPT/HCPCS: 99212; A9270-GY; G0463

== ENCOUNTER 2019-10-19 14:20 | Emergency (ER) | payer BC, MEDICARE ==
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
[2019-10-19] MEDS ORDERED: Ibuprofen TAB* 600 MG PO ONE (15:21)
[2019-10-19 15:44] VITALS: BP 129/66
== END 2019-10-19 15:43 | disposition home or self-care (01) ==
LOC: ED 14:20
DX: S22.42XA Multiple fractures of ribs, left side, initial encounter for closed fracture (principal); W00.0XXA Fall on same level due to ice and snow, initial encounter; Y92.008 Other place in unspecified non-institutional (private) residence as the place of occurrence of the external cause; Z90.49 Acquired absence of other specified parts of digestive tract; Z87.442 Personal history of urinary calculi; Z79.82 Long term (current) use of aspirin
CPT/HCPCS: 99282; A9270-GY

== ENCOUNTER 2020-09-25 22:07 | Inpatient (IN) ==
[2020-09-25] MEDS ORDERED: methylPREDNISolone 125 mg 2 ML VIAL IV ONE (22:43)
[2020-09-25] MEDS ORDERED: Magnesium Sulfate IV 1GM/100ML 1 GM/100 ML BAG IV ONE (22:43)
[2020-09-25] MEDS ORDERED: Albuterol HFA INHALER 8 gm MDI INH ONE (22:44)
[2020-09-25 23:10] LABS: ABS Lymphocytes 0.2 10^3/ul (1.0-4.8); ABS Monocytes 0.2 10^3/ul (0-0.8); ABS Neutrophils 3.3 10^3/ul (1.5-7.7); Hematocrit 40 % (42-52); Hemoglobin 13.3 g/dL (14.0-18.0); Lymphocyte % 6.5 %; Mean Corpuscular HGB Conc 33 g/dL (31-36); Mean Corpuscular Hemoglobin 30 pg (27-31); Mean Corpuscular Volume 90 fL (80-94); Mean Platelet Volume 7.7 fL (7.4-10.4); Platelet Count 235 10^3/uL (150-450); Red Blood Count 4.43 10^6 /uL (4.18-5.48); Red Cell Distribution Width 14 % (10-15); White Blood Count 3.8 10^3/uL (3.5-10.8)
[2020-09-25 23:20] LABS: Activated Partial Thrombo Time 25.2 seconds (26.0-38.0); INR 1.04 (0.82-1.09)
[2020-09-25 23:31] LABS: Albumin 3.3 g/dL (3.2-5.2); Albumin/Globulin Ratio 0.9 (1-3); BUN/Creatinine Ratio 17.6 (8-20); C Reactive Protein 190.8 mg/L (<8.01); Calcium 8.3 mg/dL (8.6-10.3); EGFR African American 80.4 (>60); EGFR Non-African American 66.5 (>60); Globulin 3.5 g/dL (2-4); Potassium 2.9 mmol/L (3.5-5.0); Total Bilirubin 0.3 mg/dL (0.2-1.0); Total Protein 6.8 g/dL (6.4-8.9)
[2020-09-25 23:48] LABS: Ferritin 641.1 ng/mL (24-336)
[2020-09-25] MEDS ORDERED: Lactated Ringers 1000 ml BAG 1,000 ML IV ONE (23:54)
[2020-09-25] MEDS ORDERED: Potassium Chlor 20 meq TAB.ER PO ONE (23:55)
[2020-09-25] MEDS ORDERED: cefTRIAXone 1 gm/50 mL NS BAG 1 GM/50 ML BAG IVPB ONE (23:57)
[2020-09-25] MEDS ORDERED: Azithromycin 500 mg/250 ml NS 500 MG/250 ML BAG IVPB ONE (23:57)
[2020-09-25] MEDS ORDERED: NS 0.9% 1000 ml BAG 1,000 ML IV ONE (23:58)
[2020-09-26] MEDS: Lactated Ringers 1000 ml BAG 1,000 ML IV SCH ×2 (00:29→15:58)
[2020-09-26] MEDS ORDERED: NS 0.9% 1000 ml BAG 1,000 ML IV SCH (01:00)
[2020-09-26 02:00] LABS: Urine Appearance Clear; Urine Bilirubin Negative (Negative); Urine Blood 1+ (Negative); Urine Color Yellow; Urine Glucose 2+(150 mg/dL) (Negative); Urine Ketones Negative (Negative); Urine Nitrite Negative (Negative); Urine Protein Negative (Negative); Urine Specific Gravity 1.013 (1.010-1.030); Urine Urobilinogen Negative (Negative)
[2020-09-26] MEDS ORDERED: Remdesivir 100 mg Vial 200 MG in NS 0.9% 250 ml 210 ML IV ONE (02:00)
[2020-09-26 02:04] LABS: Urine Bacteria Absent (Absent); Urine Granular Casts Present (Absent); Urine Red Blood Cell Trace(0-2/hpf) (Absent); Urine Squamous Epithelial Cell Present (Absent); Urine White Blood Cell Absent (Absent)
[2020-09-26] MEDS: Enoxaparin 30 MG/0.3 ML SYR SUBCUT SCH ×2 (09:46→20:34)
[2020-09-26] MEDS: Albuterol HFA INHALER 8 gm MDI INH PRN (09:48)
[2020-09-26] MEDS ORDERED: Albuterol/Ipratropium NEB.SOL (2.5/0.5 MG) 3 ML NEB.SOLN ONE (10:00)
[2020-09-26] MEDS ORDERED: Albuterol/Ipratropium NEB.SOL (2.5/0.5 MG) 3 ML NEB.SOLN INH ONE (10:00)
[2020-09-26 16:45] LABS: BUN/Creatinine Ratio 20.7 (8-20); Calcium 7.6 mg/dL (8.6-10.3); EGFR African American 103.2 (>60); EGFR Non-African American 85.3 (>60); Potassium 3.5 mmol/L (3.5-5.0)
[2020-09-26] MEDS: cefTRIAXone 1 gm/50 mL NS BAG 1 GM/50 ML BAG IVPB SCH (22:07)
[2020-09-26] MEDS: Azithromycin 500 mg/250 ml NS 500 MG/250 ML BAG IVPB SCH (22:08)
[2020-09-27] MEDS: Lactated Ringers 1000 ml BAG 1,000 ML IV SCH (01:00)
[2020-09-27 05:41] LABS: INR 1.05 (0.82-1.09)
[2020-09-27 05:53] LABS: ABS Neutrophils 9.8 10^3/ul (1.5-7.7); Hematocrit 35 % (42-52); Hemoglobin 11.9 g/dL (14.0-18.0); Mean Corpuscular HGB Conc 34 g/dL (31-36); Mean Corpuscular Hemoglobin 30 pg (27-31); Mean Corpuscular Volume 88 fL (80-94); Mean Platelet Volume 7.9 fL (7.4-10.4); Platelet Count 265 10^3/uL (150-450); Red Blood Count 3.93 10^6 /uL (4.18-5.48); Red Cell Distribution Width 14 % (10-15); White Blood Count 10.8 10^3/uL (3.5-10.8)
[2020-09-27 05:54] LABS: ABS Lymphocytes 0.4 10^3/ul (1.0-4.8); ABS Monocytes 0.5 10^3/ul (0-0.8); Lymphocyte % 3.9 %
[2020-09-27] MEDS: Enoxaparin 30 MG/0.3 ML SYR SUBCUT SCH ×2 (09:21→20:08)
[2020-09-27 09:22] LABS: Potassium 3.6 mmol/L (3.5-5.0)
[2020-09-27 09:23] LABS: Albumin 2.7 g/dL (3.2-5.2); BUN/Creatinine Ratio 26.5 (8-20); Calcium 7.6 mg/dL (8.6-10.3); EGFR Non-African American 90.1 (>60); Globulin 2.7 g/dL (2-4); Total Bilirubin 0.3 mg/dL (0.2-1.0); Total Protein 5.4 g/dL (6.4-8.9)
[2020-09-27] MEDS: Remdesivir 100 mg Vial 100 MG in NS 0.9% 250 ml 230 ML IV SCH (09:30)
[2020-09-27] MEDS: Azithromycin 500 mg/250 ml NS 500 MG/250 ML BAG IVPB SCH (22:29)
[2020-09-27] MEDS: cefTRIAXone 1 gm/50 mL NS BAG 1 GM/50 ML BAG IVPB SCH (22:29)
[2020-09-28 05:38] LABS: ABS Lymphocytes 0.5 10^3/ul (1.0-4.8); ABS Monocytes 0.5 10^3/ul (0-0.8); Hematocrit 36 % (42-52); Hemoglobin 11.9 g/dL (14.0-18.0); Lymphocyte % 3.5 %; Mean Corpuscular HGB Conc 33 g/dL (31-36); Mean Corpuscular Hemoglobin 30 pg (27-31); Mean Corpuscular Volume 89 fL (80-94); Mean Platelet Volume 8.3 fL (7.4-10.4); Platelet Count 273 10^3/uL (150-450); Red Blood Count 4.01 10^6 /uL (4.18-5.48); Red Cell Distribution Width 14 % (10-15)
[2020-09-28 05:44] LABS: INR 1.1 (0.82-1.09)
[2020-09-28 05:53] LABS: Albumin 2.6 g/dL (3.2-5.2); BUN/Creatinine Ratio 32.5 (8-20); Calcium 7.7 mg/dL (8.6-10.3); EGFR Non-African American 90.1 (>60); Globulin 2.6 g/dL (2-4); Potassium 3.6 mmol/L (3.5-5.0); Total Bilirubin 0.3 mg/dL (0.2-1.0); Total Protein 5.2 g/dL (6.4-8.9)
[2020-09-28] MEDS: Enoxaparin 30 MG/0.3 ML SYR SUBCUT SCH ×2 (07:41→20:50)
[2020-09-28] MEDS: Remdesivir 100 mg Vial 100 MG in NS 0.9% 250 ml 230 ML IV SCH (08:41)
[2020-09-28 15:49] LABS: Magnesium 1.7 mg/dL (1.9-2.7)
[2020-09-28 15:55] LABS: Phosphorus 2.1 mg/dL (2.5-5.0)
[2020-09-28] MEDS ORDERED: Magnesium Sulf 4 GM/100 ML IV 4,000 MG/100 ML BAG IVPB ONE (17:28)
[2020-09-28] MEDS ORDERED: Potassium Phosphate IV 15 MMOLE in NS 0.9% 250 ml 250 ML IVPB ONE (17:28)
[2020-09-28] MEDS: Azithromycin 500 mg/250 ml NS 500 MG/250 ML BAG IVPB SCH (23:20)
[2020-09-28] MEDS: cefTRIAXone 1 gm/50 mL NS BAG 1 GM/50 ML BAG IVPB SCH (23:20)
[2020-09-29 04:09] LABS: INR 1.06 (0.82-1.09)
[2020-09-29 04:21] LABS: Albumin 2.7 g/dL (3.2-5.2); Albumin/Globulin Ratio 0.9 (1-3); BUN/Creatinine Ratio 25.8 (8-20); Calcium 7.5 mg/dL (8.6-10.3); EGFR African American 100.6 (>60); EGFR Non-African American 83.1 (>60); Globulin 2.9 g/dL (2-4); Potassium 3.7 mmol/L (3.5-5.0); Total Bilirubin 0.3 mg/dL (0.2-1.0); Total Protein 5.6 g/dL (6.4-8.9)
[2020-09-29 08:02] LABS: ABS Lymphocytes 0.6 10^3/ul (1.0-4.8); ABS Monocytes 0.7 10^3/ul (0-0.8); ABS Neutrophils 11.5 10^3/ul (1.5-7.7); Eosinophil % 0.3 %; Hematocrit 40 % (42-52); Hemoglobin 13.5 g/dL (14.0-18.0); Mean Corpuscular HGB Conc 34 g/dL (31-36); Mean Corpuscular Hemoglobin 30 pg (27-31); Mean Corpuscular Volume 88 fL (80-94); Mean Platelet Volume 7.9 fL (7.4-10.4); Platelet Count 301 10^3/uL (150-450); Red Blood Count 4.56 10^6 /uL (4.18-5.48); Red Cell Distribution Width 14 % (10-15); White Blood Count 12.9 10^3/uL (3.5-10.8)
[2020-09-29] MEDS: Enoxaparin 30 MG/0.3 ML SYR SUBCUT SCH ×2 (08:12→19:49)
[2020-09-29] MEDS: Remdesivir 100 mg Vial 100 MG in NS 0.9% 250 ml 230 ML IV SCH (09:52)
[2020-09-29 10:02] LABS: Magnesium 2.3 mg/dL (1.9-2.7); Phosphorus 2.9 mg/dL (2.5-5.0)
[2020-09-29] MEDS: cefTRIAXone 1 gm/50 mL NS BAG 1 GM/50 ML BAG IVPB SCH (21:19)
[2020-09-30 04:01] LABS: Albumin 2.7 g/dL (3.2-5.2); BUN/Creatinine Ratio 20.9 (8-20); Calcium 7.6 mg/dL (8.6-10.3); Globulin 2.7 g/dL (2-4); Potassium 3.3 mmol/L (3.5-5.0); Total Bilirubin 0.4 mg/dL (0.2-1.0); Total Protein 5.4 g/dL (6.4-8.9)
[2020-09-30] MEDS ORDERED: Potassium Chloride LIQUID 20 MEQ/15 ML LIQUID PO SCH ×2 (05:30→05:45)
[2020-09-30] MEDS ORDERED: Potassium Chloride LIQUID 20 MEQ/15 ML LIQUID PO ONE ×3 (05:45→06:30)
[2020-09-30] MEDS: Enoxaparin 30 MG/0.3 ML SYR SUBCUT SCH ×2 (07:58→19:59)
[2020-09-30] MEDS ORDERED: Furosemide 20 mg/2 ml IV VIAL IV SLOW PU ONE (08:20)
[2020-09-30] MEDS: Remdesivir 100 mg Vial 100 MG in NS 0.9% 250 ml 230 ML IV SCH (08:42)
[2020-09-30 09:41] LABS: Magnesium 1.8 mg/dL (1.9-2.7); Phosphorus 2.4 mg/dL (2.5-5.0)
[2020-09-30] MEDS ORDERED: Potassium Phosphate IV 15 MMOLE in NS 0.9% 250 ml 250 ML IVPB ONE (11:30)
[2020-09-30] MEDS: cefTRIAXone 1 gm/50 mL NS BAG 1 GM/50 ML BAG IVPB SCH (20:56)
[2020-10-01 04:32] LABS: Albumin 2.7 g/dL (3.2-5.2); BUN/Creatinine Ratio 22.3 (8-20); Calcium 7.7 mg/dL (8.6-10.3); EGFR African American 94.4 (>60); Globulin 2.8 g/dL (2-4); Potassium 3.5 mmol/L (3.5-5.0); Total Bilirubin 0.4 mg/dL (0.2-1.0); Total Protein 5.5 g/dL (6.4-8.9)
[2020-10-01] MEDS: Enoxaparin 30 MG/0.3 ML SYR SUBCUT SCH ×2 (09:12→20:54)
[2020-10-01] MEDS: Albuterol HFA INHALER 8 gm MDI INH PRN (14:46)
[2020-10-02 05:19] LABS: ABS Eosinophils 0.4 10^3/ul (0-0.6); ABS Lymphocytes 0.6 10^3/ul (1.0-4.8); ABS Monocytes 1.1 10^3/ul (0-0.8); ABS Neutrophils 8.8 10^3/ul (1.5-7.7); Eosinophil % 3.7 %; Hematocrit 38 % (42-52); Hemoglobin 12.8 g/dL (14.0-18.0); Lymphocyte % 5.3 %; Mean Corpuscular HGB Conc 34 g/dL (31-36); Mean Corpuscular Hemoglobin 30 pg (27-31); Mean Corpuscular Volume 88 fL (80-94); Mean Platelet Volume 7.7 fL (7.4-10.4); Platelet Count 206 10^3/uL (150-450); Red Blood Count 4.27 10^6 /uL (4.18-5.48); Red Cell Distribution Width 14 % (10-15); White Blood Count 10.8 10^3/uL (3.5-10.8)
[2020-10-02 05:38] LABS: Albumin 2.6 g/dL (3.2-5.2); BUN/Creatinine Ratio 20.8 (8-20); Calcium 8.1 mg/dL (8.6-10.3); EGFR African American 92.1 (>60); EGFR Non-African American 76.2 (>60); Globulin 2.7 g/dL (2-4); Potassium 3.7 mmol/L (3.5-5.0); Total Bilirubin 0.5 mg/dL (0.2-1.0); Total Protein 5.3 g/dL (6.4-8.9)
[2020-10-02] MEDS: Enoxaparin 30 MG/0.3 ML SYR SUBCUT SCH ×2 (08:57→21:39)
[2020-10-02 11:48] LABS: Influenza A Molecular Negative (Negative); Influenza B Molecular Negative (Negative)
[2020-10-02] MEDS: Dexamethasone IV 4 MG/ML VIAL 1 ml VIAL IV SLOW PU SCH (12:25)
[2020-10-02] MEDS ORDERED: Furosemide 20 mg/2 ml IV VIAL IV ONE (17:08)
[2020-10-03 05:36] LABS: ABS Lymphocytes 0.4 10^3/ul (1.0-4.8); ABS Monocytes 0.9 10^3/ul (0-0.8); ABS Neutrophils 9.1 10^3/ul (1.5-7.7); Eosinophil % 0.3 %; Hematocrit 38 % (42-52); Mean Corpuscular HGB Conc 34 g/dL (31-36); Mean Corpuscular Hemoglobin 30 pg (27-31); Mean Corpuscular Volume 88 fL (80-94); Mean Platelet Volume 7.8 fL (7.4-10.4); Platelet Count 222 10^3/uL (150-450); Red Blood Count 4.31 10^6 /uL (4.18-5.48); Red Cell Distribution Width 14 % (10-15); White Blood Count 10.5 10^3/uL (3.5-10.8)
[2020-10-03 05:54] LABS: Albumin 2.7 g/dL (3.2-5.2); Albumin/Globulin Ratio 0.8 (1-3); BUN/Creatinine Ratio 25.8 (8-20); Calcium 8.3 mg/dL (8.6-10.3); EGFR African American 95.6 (>60); Globulin 3.2 g/dL (2-4); Magnesium 1.9 mg/dL (1.9-2.7); Potassium 3.9 mmol/L (3.5-5.0); Total Bilirubin 0.4 mg/dL (0.2-1.0); Total Protein 5.9 g/dL (6.4-8.9)
[2020-10-03] MEDS: Enoxaparin 30 MG/0.3 ML SYR SUBCUT SCH ×2 (08:52→20:17)
[2020-10-03] MEDS: Dexamethasone IV 4 MG/ML VIAL 1 ml VIAL IV SLOW PU SCH (08:53)
[2020-10-03] MEDS ORDERED: Furosemide 20 mg/2 ml IV VIAL IV ONE (09:47)
[2020-10-04 04:25] LABS: Hematocrit 37 % (42-52); Hemoglobin 12.6 g/dL (14.0-18.0); Mean Corpuscular HGB Conc 34 g/dL (31-36); Mean Corpuscular Hemoglobin 30 pg (27-31); Mean Corpuscular Volume 89 fL (80-94); Mean Platelet Volume 7.8 fL (7.4-10.4); Platelet Count 245 10^3/uL (150-450); Red Blood Count 4.22 10^6 /uL (4.18-5.48); Red Cell Distribution Width 14 % (10-15); White Blood Count 12.9 10^3/uL (3.5-10.8)
[2020-10-04 04:39] LABS: BUN/Creatinine Ratio 28.9 (8-20); Calcium 8.3 mg/dL (8.6-10.3); EGFR African American 91.1 (>60); EGFR Non-African American 75.2 (>60); Potassium 3.9 mmol/L (3.5-5.0)
[2020-10-04] MEDS: Dexamethasone IV 4 MG/ML VIAL 1 ml VIAL IV SLOW PU SCH (08:45)
[2020-10-04] MEDS: Enoxaparin 30 MG/0.3 ML SYR SUBCUT SCH ×2 (08:46→19:54)
[2020-10-04] MEDS ORDERED: Furosemide 40 mg/4 ml IV VIAL IV ONE (10:48)
[2020-10-05 05:23] LABS: Hematocrit 42 % (42-52); Mean Corpuscular HGB Conc 34 g/dL (31-36); Mean Corpuscular Hemoglobin 30 pg (27-31); Mean Corpuscular Volume 88 fL (80-94); Mean Platelet Volume 7.9 fL (7.4-10.4); Platelet Count 292 10^3/uL (150-450); Red Blood Count 4.72 10^6 /uL (4.18-5.48); Red Cell Distribution Width 14 % (10-15)
[2020-10-05 05:40] LABS: BUN/Creatinine Ratio 32.1 (8-20); Calcium 8.9 mg/dL (8.6-10.3); EGFR African American 77.1 (>60); EGFR Non-African American 63.7 (>60); Potassium 4.1 mmol/L (3.5-5.0)
[2020-10-05] MEDS: Dexamethasone IV 4 MG/ML VIAL 1 ml VIAL IV SLOW PU SCH (08:40)
[2020-10-05] MEDS: Enoxaparin 30 MG/0.3 ML SYR SUBCUT SCH ×2 (08:40→20:09)
[2020-10-05] MEDS ORDERED: Furosemide 40 mg/4 ml IV VIAL IV ONE (10:30)
[2020-10-06 05:23] LABS: ABS Eosinophils 0.2 10^3/ul (0-0.6); ABS Lymphocytes 1.2 10^3/ul (1.0-4.8); ABS Monocytes 1.5 10^3/ul (0-0.8); ABS Neutrophils 14.6 10^3/ul (1.5-7.7); Eosinophil % 1.2 %; Hematocrit 42 % (42-52); Lymphocyte % 6.7 %; Mean Corpuscular HGB Conc 33 g/dL (31-36); Mean Corpuscular Hemoglobin 30 pg (27-31); Mean Corpuscular Volume 89 fL (80-94); Mean Platelet Volume 7.8 fL (7.4-10.4); Platelet Count 284 10^3/uL (150-450); Red Blood Count 4.74 10^6 /uL (4.18-5.48); Red Cell Distribution Width 14 % (10-15); White Blood Count 17.6 10^3/uL (3.5-10.8)
[2020-10-06 05:30] LABS: BUN/Creatinine Ratio 33.6 (8-20); Calcium 8.8 mg/dL (8.6-10.3); EGFR African American 76.3 (>60); EGFR Non-African American 63.1 (>60); Magnesium 2.1 mg/dL (1.9-2.7); Potassium 4.1 mmol/L (3.5-5.0)
[2020-10-06] MEDS: Dexamethasone IV 4 MG/ML VIAL 1 ml VIAL IV SLOW PU SCH (08:24)
[2020-10-06] MEDS: Enoxaparin 30 MG/0.3 ML SYR SUBCUT SCH ×2 (08:25→20:17)
[2020-10-06] MEDS ORDERED: Furosemide 20 mg/2 ml IV VIAL IV ONE (10:11)
[2020-10-07 06:14] LABS: Hematocrit 41 % (42-52); Hemoglobin 13.4 g/dL (14.0-18.0); Mean Corpuscular HGB Conc 32 g/dL (31-36); Mean Corpuscular Hemoglobin 29 pg (27-31); Mean Corpuscular Volume 89 fL (80-94); Mean Platelet Volume 7.9 fL (7.4-10.4); Platelet Count 281 10^3/uL (150-450); Red Blood Count 4.66 10^6 /uL (4.18-5.48); Red Cell Distribution Width 14 % (10-15)
[2020-10-07] MEDS: Enoxaparin 30 MG/0.3 ML SYR SUBCUT SCH ×2 (08:57→20:47)
[2020-10-08 04:52] LABS: ABS Eosinophils 0.5 10^3/ul (0-0.6); ABS Monocytes 1.2 10^3/ul (0-0.8); ABS Neutrophils 12.6 10^3/ul (1.5-7.7); Eosinophil % 3.2 %; Hematocrit 40 % (42-52); Hemoglobin 13.4 g/dL (14.0-18.0); Lymphocyte % 6.4 %; Mean Corpuscular HGB Conc 33 g/dL (31-36); Mean Corpuscular Hemoglobin 30 pg (27-31); Mean Corpuscular Volume 89 fL (80-94); Platelet Count 250 10^3/uL (150-450); Red Blood Count 4.52 10^6 /uL (4.18-5.48); Red Cell Distribution Width 14 % (10-15); White Blood Count 15.3 10^3/uL (3.5-10.8)
[2020-10-08 05:14] LABS: Albumin 2.9 g/dL (3.2-5.2); C Reactive Protein 8.84 mg/L (<8.01); Calcium 8.3 mg/dL (8.6-10.3); EGFR African American 81.3 (>60); EGFR Non-African American 67.2 (>60); Globulin 2.9 g/dL (2-4); Potassium 4.1 mmol/L (3.5-5.0); Total Bilirubin 0.3 mg/dL (0.2-1.0); Total Protein 5.8 g/dL (6.4-8.9)
[2020-10-08] MEDS: Enoxaparin 30 MG/0.3 ML SYR SUBCUT SCH ×2 (08:53→21:14)
[2020-10-09 05:44] LABS: Hematocrit 38 % (42-52); Hemoglobin 12.8 g/dL (14.0-18.0); Mean Corpuscular HGB Conc 34 g/dL (31-36); Mean Corpuscular Hemoglobin 30 pg (27-31); Mean Corpuscular Volume 88 fL (80-94); Mean Platelet Volume 7.7 fL (7.4-10.4); Platelet Count 254 10^3/uL (150-450); Red Blood Count 4.27 10^6 /uL (4.18-5.48); Red Cell Distribution Width 14 % (10-15); White Blood Count 14.2 10^3/uL (3.5-10.8)
[2020-10-09 05:47] LABS: BUN/Creatinine Ratio 28.9 (8-20); Calcium 8.3 mg/dL (8.6-10.3); EGFR African American 91.1 (>60); EGFR Non-African American 75.2 (>60)
[2020-10-09] MEDS: Enoxaparin 30 MG/0.3 ML SYR SUBCUT SCH ×2 (09:22→19:51)
[2020-10-09 14:19] LABS: ABS Eosinophils 0.5 10^3/ul (0-0.6); ABS Lymphocytes 1.4 10^3/ul (1.0-4.8); ABS Neutrophils 11.3 10^3/ul (1.5-7.7); Eosinophil % 3.2 %; Lymphocyte % 9.6 %
[2020-10-10] MEDS: Enoxaparin 30 MG/0.3 ML SYR SUBCUT SCH ×2 (08:48→19:05)
[2020-10-10] MEDS ORDERED: Furosemide 20 mg/2 ml IV VIAL IV ONE (10:36)
[2020-10-10] MEDS ORDERED: Saline NASAL SPRAY 0.65% BTL BOTH NARES PRN (16:44)
[2020-10-11] MEDS: Enoxaparin 30 MG/0.3 ML SYR SUBCUT SCH ×2 (08:59→19:30)
[2020-10-11] MEDS ORDERED: Furosemide 20 mg/2 ml IV VIAL IV ONE (10:09)
[2020-10-11] MEDS ORDERED: Albuterol/Ipratropium NEB.SOL (2.5/0.5 MG) 3 ML NEB.SOLN INH PRN (10:33)
[2020-10-12] MEDS: Enoxaparin 30 MG/0.3 ML SYR SUBCUT SCH ×2 (09:32→21:42)
[2020-10-12] MEDS ORDERED: Furosemide 40 mg/4 ml IV VIAL IV ONE ×2 (12:04)
[2020-10-13 06:53] LABS: Hematocrit 42 % (42-52); Hemoglobin 13.6 g/dL (14.0-18.0); Mean Corpuscular HGB Conc 33 g/dL (31-36); Mean Corpuscular Hemoglobin 29 pg (27-31); Mean Corpuscular Volume 90 fL (80-94); Mean Platelet Volume 7.3 fL (7.4-10.4); Platelet Count 301 10^3/uL (150-450); Red Blood Count 4.62 10^6 /uL (4.18-5.48); Red Cell Distribution Width 14 % (10-15); White Blood Count 13.2 10^3/uL (3.5-10.8)
[2020-10-13 07:11] LABS: BUN/Creatinine Ratio 25.2 (8-20); Calcium 8.6 mg/dL (8.6-10.3); EGFR African American 74.8 (>60); EGFR Non-African American 61.8 (>60); Potassium 3.7 mmol/L (3.5-5.0)
[2020-10-13] MEDS: Enoxaparin 30 MG/0.3 ML SYR SUBCUT SCH ×2 (08:07→21:32)
[2020-10-13] MEDS ORDERED: Furosemide 20 mg/2 ml IV VIAL IV ONE (13:57)
[2020-10-14] MEDS: Enoxaparin 30 MG/0.3 ML SYR SUBCUT SCH (08:51)
[2020-10-14 15:55] VITALS: BP 137/74
== END 2020-10-14 18:00 | disposition home or self-care (01) | DRG 137 ==
LOC: ED 22:07 → EDHOLD 09-26 00:51 → ICU 09-26 14:00 → MED 10-11 07:54
PROVIDERS: ADMIT Internal Medicine; ATTEND Internal Medicine

== ENCOUNTER 2023-08-23 18:14 | Observation (INO) ==
[2023-08-23] MEDS ORDERED: methylPREDNISolone SOD SUCC 125 mg 2 ML VIAL IV ONE (18:32)
[2023-08-23] MEDS ORDERED: cefTRIAXone 1 gm/50 mL D5W 1 GM/50 ML BAG IV ONE (18:35)
[2023-08-23] MEDS ORDERED: Azithromycin 500 mg/250 ml NS 500 MG/250 ML BAG IVPB ONE (18:35)
[2023-08-23] MEDS ORDERED: LIDOCAINE INH ONE (19:01)
[2023-08-23 19:09] LABS: ABS Eosinophils 0.1 10^3/uL (0.0-0.5); ABS Lymphocytes 0.6 10^3/uL (1.0-4.8); ABS Monocytes 0.8 10^3/uL (0.0-1.1); ABS Neutrophils 6.5 10^3/uL (1.5-7.6); Eosinophil % 1.5 %; Hematocrit 39.8 % (38-53); Hemoglobin 13.3 g/dL (13.2-16.3); Lymphocyte % 7.9 %; Mean Corpuscular Hgb Conc 33.4 g/dL (31-36); Mean Corpuscular Volume 89.8 fL (80-97); Mean Platelet Volume 7.6 fL (7.5-11.2); Platelet Count 216 10^3/uL (150-450); Red Blood Count 4.43 10^6/uL (4.06-5.63); Red Cell Distribution Width 14.1 % (12-17); White Blood Count 8.1 10^3/uL (3.6-10.2)
[2023-08-23 19:30] LABS: Albumin 4.1 g/dL (3.2-5.2); Albumin/Globulin Ratio 1.4 (1-3); C Reactive Protein 31.23 mg/L (<8.01); Calcium 8.9 mg/dL (8.6-10.3); Creatinine, Serum 1.28 mg/dL (0.67-1.17); Globulin 2.9 g/dL (2-4); Potassium 2.7 mmol/L (3.5-5.0); Total Bilirubin 0.3 mg/dL (0.2-1.0); eGFR CKD-EPI 56.9 (>60)
[2023-08-23] MEDS ORDERED: Potassium EFFERVES 25 meq TAB PO ONE (19:33)
[2023-08-23] MEDS ORDERED: Lidocaine 2% PF 5 ML VIAL INH ONE (20:00)
[2023-08-23 20:05] LABS: Magnesium 1.6 mg/dL (1.9-2.7)
[2023-08-23] MEDS ORDERED: Magnesium Sulfate 2 gm BAG 2 GM/50 ML BAG IVPB ONE (20:14)
[2023-08-23] MEDS ORDERED: Lactated Ringers 1000 ml BAG 1,000 ML IV ONE (21:20)
[2023-08-23] MEDS ORDERED: Enoxaparin 40 MG/0.4 ML SYR SUBCUT SCH (22:00)
[2023-08-23] MEDS ORDERED: Magnesium Sulfate IV 1GM/100ML 1 GM/100 ML BAG IV ONE (22:14)
[2023-08-23] MEDS: Psyllium PAK PO SCH (22:47)
[2023-08-24 03:20] LABS: Calcium 8.4 mg/dL (8.6-10.3); Creatinine, Serum 1.21 mg/dL (0.67-1.17); Magnesium 2.2 mg/dL (1.9-2.7); Potassium 3.8 mmol/L (3.5-5.0); eGFR CKD-EPI 60.9 (>60)
[2023-08-24] MEDS: Psyllium PAK PO SCH (07:22)
[2023-08-24 10:22] VITALS: BP 151/71
[2023-08-24] MEDS ORDERED: cefTRIAXone 1 gm/50 mL D5W 1 GM/50 ML BAG IV SCH (18:00)
== END 2023-08-24 11:57 | disposition home or self-care (01) ==
LOC: ED 18:14 → EDHOLD 18:14 → SUATTDRO 21:15 → MED 23:07
PROVIDERS: ADMIT Internal Medicine; ATTEND Student in an Organized Health Care Education/Training Program

== ENCOUNTER 2023-10-23 10:17 | Observation (INO) ==
[2023-10-23 11:35] LABS: ABS Eosinophils 0.5 10^3/uL (0.0-0.5); ABS Lymphocytes 1.2 10^3/uL (1.0-4.8); ABS Monocytes 0.6 10^3/uL (0.0-1.1); ABS Neutrophils 6.7 10^3/uL (1.5-7.6); Eosinophil % 5.7 %; Hematocrit 41.6 % (38-53); Lymphocyte % 13.2 %; Mean Corpuscular Hemoglobin 29.6 pg (27-33); Mean Corpuscular Hgb Conc 33.6 g/dL (31-36); Mean Corpuscular Volume 88.1 fL (80-97); Mean Platelet Volume 7.7 fL (7.5-11.2); Platelet Count 237 10^3/uL (150-450); Red Blood Count 4.72 10^6/uL (4.06-5.63); Red Cell Distribution Width 14.4 % (12-17)
[2023-10-23 12:19] LABS: Albumin 4.1 g/dL (3.2-5.2); Albumin/Globulin Ratio 1.5 (1-3); Calcium 9.1 mg/dL (8.6-10.3); Creatinine, Serum 1.08 mg/dL (0.67-1.17); Globulin 2.8 g/dL (2-4); Magnesium 1.7 mg/dL (1.9-2.7); Potassium 3.8 mmol/L (3.5-5.0); Total Bilirubin 0.3 mg/dL (0.2-1.0); Total Protein 6.9 g/dL (6.4-8.9); eGFR CKD-EPI 69.8 (>60)
[2023-10-23 12:33] LABS: TSH Ultra Thyroid Stim Horm 3.07 mcIU/mL (0.34-5.60)
[2023-10-23 14:57] LABS: Urine Appearance Clear; Urine Bilirubin Negative (Negative); Urine Blood Negative (Negative); Urine Color Yellow; Urine Glucose Negative (Negative); Urine Ketones Negative (Negative); Urine Nitrite Negative (Negative); Urine Protein Trace (Negative); Urine Urobilinogen Negative (Negative); Urine pH 5.5 (5.0-8.0)
[2023-10-23 16:43] LABS: HDL Cholesterol 38.6 mg/dL
[2023-10-24 05:57] LABS: ABS Eosinophils 0.6 10^3/uL (0.0-0.5); ABS Monocytes 0.8 10^3/uL (0.0-1.1); ABS Nucleated RBC 0.01 10^3/ul; Eosinophil % 6.6 %; Hematocrit 41.5 % (38-53); Hemoglobin 14.1 g/dL (13.2-16.3); Lymphocyte % 10.2 %; Mean Corpuscular Volume 88.4 fL (80-97); Mean Platelet Volume 7.8 fL (7.5-11.2); Nucleated Red Blood Cells % 0.1 %/100WBC (0.0-0.8); Platelet Count 224 10^3/uL (150-450); Red Cell Distribution Width 14.1 % (12-17); White Blood Count 9.4 10^3/uL (3.6-10.2)
[2023-10-24 06:06] LABS: Calcium 8.9 mg/dL (8.6-10.3); Creatinine, Serum 0.98 mg/dL (0.67-1.17); Potassium 3.9 mmol/L (3.5-5.0); eGFR CKD-EPI 78.4 (>60)
[2023-10-24 10:09] VITALS: BP 134/54
[2023-10-25] MEDS ORDERED: Aspirin EC 325 mg TAB.EC PO SCH (09:00)
[2023-10-26] MEDS: Iodixanol (CONTRAST) 320 MG/ML 100 ML SDV IV ONE (12:04)
== END 2023-10-24 12:52 | disposition home or self-care (01) ==
LOC: EDHOLD 10:17 → ED 10:17 → SUATTDRO 14:36 → MEDTELE 17:36
PROVIDERS: ADMIT Internal Medicine; ATTEND Internal Medicine

== ENCOUNTER 2024-06-14 18:42 | Inpatient (IN) ==
[2024-06-14 20:08] LABS: ABS Eosinophils 0.3 10^3/uL (0.0-0.5); ABS Lymphocytes 0.6 10^3/uL (1.0-4.8); ABS Monocytes 0.7 10^3/uL (0.0-1.1); Hematocrit 43.7 % (38-53); Hemoglobin 14.5 g/dL (13.2-16.3); Lymphocyte % 5.8 %; Mean Corpuscular Hgb Conc 33.2 g/dL (31-36); Mean Corpuscular Volume 87.3 fL (80-97); Mean Platelet Volume 8.3 fL (7.5-11.2); Platelet Count 235 10^3/uL (150-450); Red Blood Count 5.01 10^6/uL (4.06-5.63); Red Cell Distribution Width 14.4 % (12-17); White Blood Count 9.6 10^3/uL (3.6-10.2)
[2024-06-14 20:29] LABS: Activated Partial Thrombo Time 31.4 seconds (26.0-38.0); INR 1.04 (0.85-1.14)
[2024-06-14 20:46] LABS: Urine Appearance Clear; Urine Bilirubin Negative (Negative); Urine Blood 1+ (Negative); Urine Color Yellow; Urine Glucose Negative (Negative); Urine Ketones Trace (Negative); Urine Nitrite Negative (Negative); Urine Protein 1+ (>=30 mg/dL) (Negative); Urine Specific Gravity 1.028 (1.002-1.030); Urine Urobilinogen Negative (Negative)
[2024-06-14 20:46] LABS: Albumin/Globulin Ratio 1.3 (1-3); C Reactive Protein 46.84 mg/L (<8.01); Creatinine, Serum 1.31 mg/dL (0.67-1.17); Globulin 3.2 g/dL (2-4); Potassium 3.5 mmol/L (3.5-5.0); Total Bilirubin 0.4 mg/dL (0.2-1.0); Total Protein 7.2 g/dL (6.4-8.9)
[2024-06-14 20:47] LABS: Urine Bacteria Absent /HPF (Absent); Urine Red Blood Cell 1+(3-5/hpf) /HPF (0-Trace); Urine Squamous Epithelial Cell Present /HPF (Absent); Urine White Blood Cell Trace(0-5/hpf) /HPF (0-Trace)
[2024-06-14] MEDS: Albuterol HFA INHALER 8 gm MDI INH ONE (20:59)
[2024-06-14 21:34] LABS: High Sensitivity Troponin 1 Hr 5 pg/mL (<20)
[2024-06-14] MEDS: Remdesivir 100 mg Vial 200 MG in NS 0.9% 250 ml 210 ML IV ONE (22:33)
[2024-06-15] MEDS ORDERED: Albuterol/Ipratropium NEB.SOL (2.5/0.5 MG) 3 ML NEB.SOLN INH PRN (00:38)
[2024-06-15 01:06] LABS: INR 1.08 (0.85-1.14)
[2024-06-15 01:11] LABS: Albumin 3.8 g/dL (3.2-5.2); Albumin/Globulin Ratio 1.3 (1-3); Calcium 8.7 mg/dL (8.6-10.3); Creatinine, Serum 1.31 mg/dL (0.67-1.17); Potassium 3.5 mmol/L (3.5-5.0); Total Bilirubin 0.3 mg/dL (0.2-1.0); Total Protein 6.8 g/dL (6.4-8.9)
[2024-06-15] MEDS: Enoxaparin 40 MG/0.4 ML SYR SUBCUT SCH (05:50)
[2024-06-15 06:50] LABS: Albumin 3.8 g/dL (3.2-5.2); Albumin/Globulin Ratio 1.2 (1-3); Calcium 8.9 mg/dL (8.6-10.3); Creatinine, Serum 1.26 mg/dL (0.67-1.17); Globulin 3.1 g/dL (2-4); Potassium 3.7 mmol/L (3.5-5.0); Total Bilirubin 0.2 mg/dL (0.2-1.0); Total Protein 6.9 g/dL (6.4-8.9); eGFR CKD-EPI 57.7 (>60)
[2024-06-15 07:22] LABS: INR 1.03 (0.85-1.14)
[2024-06-15 13:38] VITALS: BP 123/66
[2024-06-15] MEDS ORDERED: Remdesivir 100 mg Vial 100 MG in NS 0.9% 250 ml 230 ML IV SCH (21:00)
== END 2024-06-15 18:30 | disposition home or self-care (01) | DRG 177 ==
LOC: EDHOLD 18:42 → ED 18:42 → OBSVTOIN 21:57 → SUATTDRO 21:57 → MED 23:08
PROVIDERS: ADMIT Internal Medicine; ATTEND Student in an Organized Health Care Education/Training Program